=== PATIENT | female | born 1955 | race Caucasian/White ===

== ENCOUNTER → 2019-03-13 08:53 | Outpatient (BNVA) | payer BC, SELFPAY | PROVIDERS: Family Provider Nurse Practitioner; PCP Nurse Practitioner; Visit Provider Anesthesiology | DX: G89.29 Other chronic pain (principal); M54.5 Low back pain; Z71.89 Other specified counseling; Z79.891 Long term (current) use of opiate analgesic | CPT/HCPCS: 62323; 64483; 77003; 99212; J1040; J2001; J3490 ==

== ENCOUNTER → 2019-03-18 08:37 | Outpatient (BNVA) | payer BC, SELFPAY | PROVIDERS: Family Provider Nurse Practitioner; PCP Nurse Practitioner; Visit Provider Anesthesiology | DX: M48.062 Spinal stenosis, lumbar region with neurogenic claudication (principal); M43.16 Spondylolisthesis, lumbar region; M51.17 Intervertebral disc disorders with radiculopathy, lumbosacral region; M53.9 Dorsopathy, unspecified; M75.41 Impingement syndrome of right shoulder; F17.210 Nicotine dependence, cigarettes, uncomplicated; Z79.891 Long term (current) use of opiate analgesic | CPT/HCPCS: 99213; 99214 ==

== ENCOUNTER → 2019-04-22 09:57 | Outpatient (BNVA) | payer BC, SELFPAY | PROVIDERS: Family Provider Nurse Practitioner; PCP Nurse Practitioner; Referring Provider Licensed Practical Nurse; Visit Provider Psychiatry & Neurology Neurology | DX: M51.17 Intervertebral disc disorders with radiculopathy, lumbosacral region (principal); M54.5 Low back pain; M79.604 Pain in right leg; M79.605 Pain in left leg; F17.210 Nicotine dependence, cigarettes, uncomplicated | CPT/HCPCS: 95886; 95909 ==

== ENCOUNTER → 2019-04-29 12:27 | Outpatient (BNVA) | payer BC, SELFPAY | PROVIDERS: Family Provider Nurse Practitioner; PCP Nurse Practitioner; Visit Provider Internal Medicine Rheumatology | DX: M34.9 Systemic sclerosis, unspecified (principal); Z79.899 Other long term (current) drug therapy; M19.90 Unspecified osteoarthritis, unspecified site; I27.20 Pulmonary hypertension, unspecified; F17.210 Nicotine dependence, cigarettes, uncomplicated | CPT/HCPCS: 36415; 80076; 82306; 82565; 85651; 86140; 99214; G0463 ==

== ENCOUNTER → 2019-04-29 13:51 | Outpatient (BNVA) | payer BC, SELFPAY | PROVIDERS: Family Provider Nurse Practitioner; PCP Nurse Practitioner; Visit Provider Internal Medicine Rheumatology | DX: Z79.899 Other long term (current) drug therapy (principal); M19.90 Unspecified osteoarthritis, unspecified site; I27.20 Pulmonary hypertension, unspecified; M34.9 Systemic sclerosis, unspecified | CPT/HCPCS: 85025 ==

== ENCOUNTER → 2019-05-21 08:56 | Outpatient (BNVA) | payer BC, SELFPAY | PROVIDERS: Family Provider Nurse Practitioner; PCP Nurse Practitioner; Visit Provider Nurse Practitioner | DX: M48.062 Spinal stenosis, lumbar region with neurogenic claudication (principal); M51.17 Intervertebral disc disorders with radiculopathy, lumbosacral region; M43.16 Spondylolisthesis, lumbar region; F17.210 Nicotine dependence, cigarettes, uncomplicated; Z71.6 Tobacco abuse counseling; Z79.891 Long term (current) use of opiate analgesic | CPT/HCPCS: 99214 ==

== ENCOUNTER → 2019-05-26 10:40 | Outpatient (BNVA) | payer BC, SELFPAY | PROVIDERS: Family Provider Nurse Practitioner; PCP Nurse Practitioner; Visit Provider Internal Medicine Rheumatology | DX: M34.9 Systemic sclerosis, unspecified (principal); Z79.899 Other long term (current) drug therapy; I27.20 Pulmonary hypertension, unspecified; F17.210 Nicotine dependence, cigarettes, uncomplicated; M47.26 Other spondylosis with radiculopathy, lumbar region; I73.00 Raynaud's syndrome without gangrene; M19.90 Unspecified osteoarthritis, unspecified site | CPT/HCPCS: 99214 ==

== ENCOUNTER 2019-06-26 09:58 | Outpatient (CLI) | payer BC, SELFPAY ==
--- NOTE | 2019-06-26 10:15 | USCV_ITS ---
Jenna Muir Age: 64 Gender: F : 1955 Exam Date: 06/26/2019 10:21 Ordering Phys: Nakita Cabrales MD Technologist: Amari Calzada [place] [facility] [place]ication: PEDAL EDEMA BP: 130 / 75 HR: 82 Rhythm: Sinus Technical Quality: Fair MEASUREMENTS (Male / Female) Normal Values 2D ECHO LV Diastolic Diameter PLAX 4.3 cm 4.2 - 5.9 / 3.9 - 5.3 cm LV Systolic Diameter PLAX 2.6 cm IVS Diastolic Thickness 0.7 cm 0.6 - 1.0 / 0.6 - 0.9 cm IVS Systolic Thickness 1.3 cm LVPW Diastolic Thickness 1.0 cm 0.6 - 1.0 / 0.6 - 0.9 cm LVPW Systolic Thickness 1.4 cm LVOT Diameter 2.1 cm LV Ejection Fraction 2D Teich 70.5 % LV Ejection Fraction MOD 2C 55.7 % LV Ejection Fraction 2C AL 56.4 % LA Diameter 2.5 cm LA Width 2.8 cm LA Height 5.0 cm RA Width 3.1 cm RA Height 5.1 cm M-MODE LV Diastolic Diameter MM 4.2 cm 4.2 - 5.9 / 3.9 - 5.3 cm LV Systolic Diameter MM 2.7 cm LV Ejection Fraction MM Teich 66.6 % IVS Diastolic Thickness MM 1.3 cm 0.6 - 1.0 / 0.6 - 0.9 cm IVS Systolic Thickness MM 1.7 cm LVPW Diastolic Thickness MM 1.1 cm 0.6 - 1.0 / 0.6 - 0.9 cm LVPW Systolic Thickness MM 1.4 cm RV Diastolic Diameter MM 2.5 cm Aortic Annulus Diameter 3.3 cm LA Ao Ratio MM 0.8 MV E Point Septal Separation 0.7 cm DOPPLER AV Peak Velocity 132.0 cm/s LVOT Peak Velocity 94.0 cm/s AV Area Cont Eq vti 2.5 cm squared AV Area Cont Eq pk 2.4 cm squared MV Area PHT 5.0 cm squared Mitral E to A Ratio 0.8 MV E' Velocity 9.0 cm/s Mitral E to MV E' Ratio 9.8 Mitral E to LV E' Lateral Ratio 8.4 Mitral E to LV E' Septal Ratio 11.9 TR Peak Velocity 257.0 cm/s TR Peak Gradient 26.5 mmHg TV Peak E Velocity 67.0 cm/s Right Atrial Pressure 3.0 mmHg Pulmonary Artery Systolic Pressu 29.4 mmHg FINDINGS Left Ventricle Relatively poor quality study. The apical view is the best view for evaluation. The other views are poor. Normal left ventricular size and function. Ejection fraction probably 60%. No obvious wall motion disturbances. Grade 1 diastolic dysfunction. Right Ventricle Normal right ventricular size and systolic function. Normal right ventricular systolic pressure. Right Atrium The right atrium is normal in size. Left Atrium The left atrium is normal in size. Mitral Valve Structurally normal mitral valve without significant stenosis or prolapse. There is no mitral regurgitation. Aortic Valve Structurally normal aortic valve without significant sclerosis or stenosis. There is no aortic regurgitation. Tricuspid Valve Structurally normal tricuspid valve without significant stenosis or regurgitation. Pulmonary artery systolic pressure is normal. Pulmonic Valve Pulmonic valve not well visualized. Pericardium Normal pericardium without effusion. Aorta Normal ascending aorta dimension. CONCLUSIONS Relatively poor quality study. The apical view is the best view for evaluation. The other views are poor. Normal left ventricular size and function. Ejection fraction probably 60%. No obvious wall motion disturbances. Grade 1 diastolic dysfunction. From the previous study in August of last year, pulmonary hypertension was not noted on this study. Previously it was suggested to be 54 mmHg. Otherwise, no change Dr. Uli Mead MD (Electronically Signed) Final Date: 26 June 2019 15:28 S
== END 2019-06-26 09:59 | disposition home or self-care (01) ==
LOC: RAD 10:01
PROVIDERS: Family Provider Nurse Practitioner; PCP Nurse Practitioner; Visit Provider Internal Medicine Critical Care Medicine
DX: I27.20 Pulmonary hypertension, unspecified (principal)
CPT/HCPCS: 93306

== ENCOUNTER 2019-07-22 09:57 | Outpatient (CLI) | payer BC, SELFPAY ==
[2019-07-22 10:48] LABS: Basophils % 0.5 %; Eosinophils # 0.2 10^3/uL (0.0-0.8); Eosinophils % 3.6 %; Hematocrit 47.7 % (37.0-47.0); Hemoglobin 15.7 g/dL (11.5-15.3); Lymphocytes # 1.5 10^3/uL (0.8-4.8); Lymphocytes % 34.2 %; Mean Corpuscular HGB Conc 32.9 g/dL (30.0-36.0); Mean Corpuscular Hemoglobin 36.1 pg (28.0-34.0); Mean Corpuscular Volume 109.7 fL (81-99); Mean Platelet Volume 10.8 fL (7.4-10.4); Monocytes # 0.4 10^3/uL (0.2-0.9); Monocytes % 8.2 %; Neutrophils # 2.3 10^3/uL (1.8-7.7); Neutrophils % 53.3 %; Nucleated Red Blood Cells % 0 %; Platelet Count 167 10^3/cmm (130-400); Red Blood Count 4.35 10^6/uL (4.1-5.3); Red Cell Distribution Width 15.1 % (12.1-15.1); White Blood Count 4.4 10^3/uL (4.0-10.0)
[2019-07-22 12:40] LABS: Add Urine Microscopic? YES; Bilirubin Urine Neg (NEGATIVE); Blood Urine Neg (Negative); Glucose Urine UA Norm (Normal); Ketones Urine Negative (Negative); Leukocyte Esterase Urine Negative (Negative); Nitrate Urine Negative (Negative); Protein Urine Neg (Negative); Urine Appearance Hazy (CLEAR); Urine Color Yellow (Yellow); Urobilinogen Urine Norm (Negative); pH Urine 5 (5-7)
[2019-07-22 12:46] LABS: Bacteria Urine 1+; WBC Urine 0-4 /hpf (0-5)
[2019-07-22 12:47] LABS: Add Urine Culture? No
[2019-07-22 13:11] LABS: Vitamin B12 163 pg/mL (232-1245)
[2019-07-22 14:00] LABS: Folate Level 8.5 ng/mL (4.8-37.3)
--- NOTE | 2019-07-22 20:36 | ONC CON_ITS ---
Dr. Valencia New Patient Note Patient: Jenna Muir Unit #: [id number]: 1955 Dicatated By: Orlin Valencia M.D.Date of Visit: July 22, 2019 Onc MED New Patient/Consult Referring Physician: Dr. Levi Lebron M.D. History of Present Illness: Mrs. Jenna Muir, is a 64-year-old female with long-standing history of heavy smoking, smoke about pack and half a day and emphysema, pulmonary hypertension and connective tissue disorder including limited cutaneous systemic sclerosis , chronic back pain, found to have elevated hemoglobin/hematocrit during routine checkup on 04/29/2020 her CBC shows white blood count 5.7 hemoglobin 17.3 hematocrit 50 2. platelets 184,000 RBC 4.87 normal being 4.1- 5.3. And MCV 107.4. Patient had CT scan of chest done on 08/21/2018 which showed mild pulmonary artery enlargement, which can be associated with pulmonary artery hypertension. Mild lung hyperexpansion, suggestive of chronic emphysema, infrarenal abdominal aorta 3.3 cm aneurysm. Colonoscopy done on 12/17/2017 showed diverticulosis. Patient denies any headaches blurred vision double vision, patient denies any history of hematuria, jaundice, melena or hematochezia, patient denies any history of hemoptysis or hematemesis. Denies any shortness of breath or wheezing. Denies any history of sleep apnea. Past Medical History: Ms. Muir's medical history consists of abdominal aortic aneurysm, arthritis, degenerative disease of the spine, gastroesophageal reflux disease, hepatitis B, hyperlipidemia, and lumbar stenosis. Past Surgical History: Ms. Muir's surgical/procedural history consists of hysterectomy, knee arthroscopy, and rotator cuff repair. Medications: amLODIPine Besylate 1 Tablet (of 2.5 mg) Oral daily, Baclofen 1 Tablet (of 20 mg) Oral t.i.d. PRN, Cholecalciferol 3 Capsule (of 100 mcg ) Oral q 7 days, oxyCODONE HCl 1 Tablet (of 5 mg) Oral t.i.d., Pantoprazole Sodium 1 Tablet (of 40 mg) Tablet, enteric coated Oral daily Allergies: Azithromycin, Codeine Sulfate, and predniSONE. Social History: Ms. Muir is . Ms. Muir has never smoked. She has no history of drinking. Family History: There is no documented family history. Review Of Symptoms: Constitutional - Appetite is good and weight is stable. No fever, chills, hot flashes, or night sweats. ECOG score is, ENMT - No sinus congestion/drainage. No mouth sores. No sore throat or difficulty swallowing, Hematologic/Lymphatic - No abnormal bruising or bleeding, Respiratory - No shortness of breath. No cough. No pleuritic pain or hemoptysis, Cardiovascular - No angina pain. No palpitations, Gastrointestinal - No nausea or vomiting. No heartburn or acid reflux. No diarrhea or constipation. No blood in the stool or black stools, Genitourinary (F) - No dysuria or hematuria. No urinary frequency. No urgency or incontinence, Musculoskeletal - No joint or bone pain, Neurologic - No headache or dizziness. No numbness/paresthesias or other focal neurologic symptoms, Psychiatric - No anxiety or depression. No insomnia. Vital Signs: Performed on July 22, 2019 11:23: 9, 1.12 (LOW), 2.82 sq.m, 203.4 in, 94 % (LOW), 87 /min, 19 /min, 133/84 mm(hg), 97.9 F (LOW), and 66 lbs (HIGH). Performance Status: 0 - Fully active, able to carry on all predisease activities without restrictions. (ECOG) Physical Examination: ENMT - no mouth sores, no thrush, no jaundice, Hematologic/Lymphatic - no peripheral lymphadenopathy, Respiratory - Lungs are clear , heart S1-S2, Abdomen - soft, bowel sounds present no organomegaly noted, Extremities - no edema or rash. Lab/Imaging: Most recent lab results are not available for this patient. Impression: polycythemia, Etiology could be relative e.g. due to chronic smoking causing low plasma volume or hypoxia induced, or primary,e.g. Polycythemia vera or myeloproliferative disorder but less likely History of chronic smoking, still active Emphysema/pulmonary hypertension. Chronic back pain Connective tissue disorder. Plan: Discussed with patient regarding her labs from today shows white blood count 4.4 hemoglobin 15.7 hematocrit 47.7 normal being 37- 47 and platelets 167,000 with a normal differential Clinically, patient is doing well not symptomatic due to mild polycythemia. And her repeat labs done today shows improvement in her hemoglobin and hematocrit At this point we will consider basic workup which include pulse ox at rest and at modest exertion to rule out hypoxia as patient has history of emphysema. Also do urinalysis to rule out hematuria and CMP and erythropoietin level and also consider B12 folate level and reticulocyte count as her CBC shows macrocytosis. Patient was advised to quit smoking and was offered any assistance she may need. Patient will return to clinic in 2 weeks with CBC, and at that time we'll review above-mentioned workup and make further plans. Signed By: Orlin Valencia M.D. <<Signature on File>>
[2019-07-23 15:52] LABS: Erythropoietin 14.7 mIU/mL (2.6-18.5)
== END 2019-07-22 09:58 | disposition home or self-care (01) ==
PROVIDERS: PCP Nurse Practitioner; Referring Provider Internal Medicine Rheumatology; Visit Provider Internal Medicine Hematology & Oncology
DX: D75.1 Secondary polycythemia (principal); F17.210 Nicotine dependence, cigarettes, uncomplicated; J43.9 Emphysema, unspecified; I27.20 Pulmonary hypertension, unspecified; M34.9 Systemic sclerosis, unspecified
CPT/HCPCS: 81001; 82607; 82668; 82746; 85025; 85045; 99203

== ENCOUNTER 2019-08-05 10:40 | Outpatient (CLI) | payer BC, SELFPAY ==
[2019-08-05 12:03] LABS: Basophils % 0.6 %; Eosinophils # 0.1 10^3/uL (0.0-0.8); Hematocrit 46.8 % (37.0-47.0); Hemoglobin 15.5 g/dL (11.5-15.3); Lymphocytes # 1.5 10^3/uL (0.8-4.8); Lymphocytes % 32.6 %; Mean Corpuscular HGB Conc 33.1 g/dL (30.0-36.0); Mean Corpuscular Hemoglobin 36.1 pg (28.0-34.0); Mean Corpuscular Volume 109.1 fL (81-99); Mean Platelet Volume 11.4 fL (7.4-10.4); Monocytes # 0.3 10^3/uL (0.2-0.9); Monocytes % 5.8 %; Neutrophils # 2.7 10^3/uL (1.8-7.7); Neutrophils % 57.8 %; Nucleated Red Blood Cells % 0 %; Platelet Count 187 10^3/cmm (130-400); Red Blood Count 4.29 10^6/uL (4.1-5.3); Red Cell Distribution Width 15.6 % (12.1-15.1); White Blood Count 4.7 10^3/uL (4.0-10.0)
[2019-08-05 13:04] LABS: Alanine Aminotransferase 11 U/L (0-33); Albumin Level 3.9 g/dL (3.5-5.2); Alkaline Phosphatase 85 IU/L (35-105); Aspartate Amino Transferase 16 U/L (0-32); Blood Urea Nitrogen 9 mg/dL (8-23); Calcium 9.8 mg/dL (8.5-10.5); Carbon Dioxide 24 mmol/L (22-29); Chloride 101 mmol/L (98-107); Globulin 3.4 g/dL (1.3-4.6); Glomerular Filtration Rate 84.5 mL/min (90-130); Glucose 130 mg/dL (65-115); Osmolality Calculated 286 mOsm/kg (285-295); Sodium 139 mmol/L (136-145); Total Bilirubin 0.4 mg/dL (0.15-1.2); Total Protein 7.3 g/dL (6.6-8.7)
[2019-08-05] MEDS: cyanocobalamin 1,000 mcg/mL SDV 1000 MCG SUBCUT (13:25)
--- NOTE | 2019-08-05 16:16 | ONC FU_ITS ---
Dr. Valencia follow up note Patient: Jenna Muir Unit #: [id number]: 1955 Dicatated By: Orlin Valencia M.D.Date of Visit:Aug 05, 2019 Onc Med Follow-up/Prog Note History of Present Illness: Mrs. Jenna Muir, is a 64-year-old female with long-standing history of heavy smoking, smoke about pack and half a day and emphysema, pulmonary hypertension and connective tissue disorder including limited cutaneous systemic sclerosis , chronic back pain, found to have elevated hemoglobin/hematocrit during routine checkup on 04/29/2020 her CBC shows white blood count 5.7 hemoglobin 17.3 hematocrit 50 2. platelets 184,000 RBC 4.87 normal being 4.1- 5.3. And MCV 107.4.labs checked done 07/22/2019 showed B12 level 163 , Patient had CT scan of chest done on 08/21/2018 which showed mild pulmonary artery enlargement, which can be associated with pulmonary artery hypertension. Mild lung hyperexpansion, suggestive of chronic emphysema, infrarenal abdominal aorta 3.3 cm aneurysm. Colonoscopy done on 12/17/2017 showed diverticulosis. Patient denies any headaches blurred vision double vision, patient denies any history of hematuria, jaundice, melena or hematochezia, patient denies any history of hemoptysis or hematemesis. Denies any shortness of breath or wheezing. Denies any history of sleep apnea. Came for follow-up, denies any specific complaints, no headaches no blurred vision or double vision no nausea or vomiting no diarrhea constipation no peripheral numbness. Patient said she has cut done her smoking significantly, now smoke about half a pack a day. Medications: amLODIPine Besylate 1 Tablet (of 2.5 mg) Oral daily, Baclofen 1 Tablet (of 20 mg) Oral t.i.d. PRN, Cholecalciferol 3 Capsule (of 100 mcg ) Oral q 7 days, oxyCODONE HCl 1 Tablet (of 5 mg) Oral t.i.d., Pantoprazole Sodium 1 Tablet (of 40 mg) Tablet, enteric coated Oral daily Allergies: Azithromycin, Codeine Sulfate, and predniSONE. Review of Systems: Constitutional - Appetite is good and weight is stable. No fever, chills, hot flashes, or night sweats. Energy level is poor, ENMT - No sinus congestion/drainage. No mouth sores. No sore throat or difficulty swallowing, Hematologic/Lymphatic - No abnormal bruising or bleeding, Respiratory - Positive for shortness of breath with exertion. No cough. No pleuritic pain or hemoptysis, Cardiovascular - No angina pain. No palpitations, Gastrointestinal - No nausea or vomiting. No heartburn or acid reflux. No diarrhea or constipation. No blood in the stool or black stools, Genitourinary (F) - No dysuria or hematuria. No urinary frequency. No urgency or incontinence, Musculoskeletal - Positive for joint pain, Neurologic - No headache or dizziness. No numbness/paresthesias or other focal neurologic symptoms, Psychiatric - No anxiety or depression. No insomnia. Vital Signs: Performed on Aug 05, 2019 12:58 Height - 203.40 in Weight - 205.6 lbs (HIGH) BSA - 4.58 sq.m BMI - 3.49 (LOW) Temperature - 98.5 F Pulse - 72 /min Respiration - 22 /min BP - 118/71 mm(hg) O2 Sat - 96 % Pain - 10 Performance Status: 0 - Fully active, able to carry on all predisease activities without restrictions. (ECOG) Physical Examination: ENMT - no mouth sores, no thrush, poor oral hygiene, no jaundice, Respiratory - Lungs are clear, Cardiovascular - Regular rate and rhythm of heart, Abdomen - soft, bowel sounds present, Extremities - no visible edema. Lab/Imaging: Test performed on July 22, 2019 11:20 Vitamin B12 163 pg/mL Erythropoietin 14.7 mIU/mL Ua Micro: WBC 0-4 /hpf Ua Micro: RBC NONE /hpf Ua Micro: Squam Epith Cells 10-15 CULTURE NOT INDICATED DUE TO >10 EPITHELIAL CELLS PRESENT ON MICROSCOPIC EXAM. POSSIBLE SPECIMEN CONTAMINATION. Ua Micro: Bacteria 1+ Test performed on July 22, 2019 10:25 WBC 4.4 10 3/uL RBC 4.35 10 6/uL HGB 15.7 g/dL HCT 47.7 % MCV 109.7 fL MCH 36.1 pg MCHC 32.9 g/dL RDW 15.1 % Platelet Count 167 10 3/cmm MPV 10.8 fL Neutrophils 2.3 10 3/uL Lymphocytes 1.5 10 3/uL Monocytes 0.4 10 3/uL Eosinophils 0.2 10 3/uL Basophils 0.0 10 3/uL Neutrophil % 53.3 % Lymphocyte % 34.2 % Monocyte % 8.2 % Eosinophil % 3.6 % Basophils % 0.5 % Impression: polycythemia, Etiology could be relative e.g. due to chronic smoking causing low plasma volume or hypoxia induced, or primary,e.g. Polycythemia vera or myeloproliferative disorder but less likely B12 deficiency diagnosed on 07/22/2019 History of chronic smoking, still active Emphysema/pulmonary hypertension. Chronic back pain Connective tissue disorder. Plan: Discussed with patient regarding her labs white blood count 4.7 hemoglobin 15.5 crit 46.8 MCV 109.1 platelets 167,000, B12 level 163, erythropoietin 14.7 urinalysis shows no evidence of hematuria comprehensive metabolic panel within normal range Clinically, patient is doing well, her follow-up lab shows her hemoglobin/hematocrit is improving as patient is cutting down on smoking. And also showed evidence of B12 deficiency causing macrocytosis. Basic polycythemia workup showed no abnormality but hematocrit is improving with cutting down on smoking. Patient was encouraged to quit smoking she was offered any assistance she may need. Patient was also advised to take 1 aspirin a day and maintain good hydration, clinically it appears patient has secondary polycythemia due to chronic heavy smoking, will continue to monitor her CBC if it shows worsening then may consider further workup including bone marrow evaluation and may consider phlebotomy. Newly diagnosed B12 deficiency, could be due to malabsorption or medication induced B12 malabsorption. We will start her on B12 supplement thousand micrograms IM weekly ???4 loading dose then every month. Patient will receive her first dose today then every week and we'll see her back in one month with CBC and B12 level. Signed By: Orlin Valencia M.D. <<Signature on File>>
[2019-08-06 17:31] LABS: Erythropoietin 19.5 mIU/mL (2.6-18.5)
== END 2019-08-05 10:41 | disposition home or self-care (01) ==
LOC: ONCMED 10:47
PROVIDERS: PCP Nurse Practitioner; Visit Provider Internal Medicine Hematology & Oncology
DX: D75.1 Secondary polycythemia (principal); E53.8 Deficiency of other specified B group vitamins; I71.4 Abdominal aortic aneurysm, without rupture; M19.90 Unspecified osteoarthritis, unspecified site; M47.9 Spondylosis, unspecified; K21.9 Gastro-esophageal reflux disease without esophagitis; E78.5 Hyperlipidemia, unspecified; M48.061 Spinal stenosis, lumbar region without neurogenic claudication; Z86.19 Personal history of other infectious and parasitic diseases
CPT/HCPCS: 36415; 80053; 82668; 85025; 96372; 99214; J3420

== ENCOUNTER 2019-08-11 08:54 | Outpatient (CLI) | payer BC, SELFPAY ==
--- NOTE | 2019-08-11 09:15 | USCV_ITS ---
Jenna Muir Age: 64 Gender: F : 1955 Exam Date: 08/11/2019 09:46 Ordering Phys: Markos Anderson MD ([email or web address]) Technologist: FREDRICK HOPKINS Exam Location: [facility] – [place] Indication: AORTIC ANEURYSM HISTORY: Diameter (cm) AP x Transverse x Length Velocity (cm/s) Waveform Prox Aorta: 2.76 x 2.50 x 56.20 Mid Aorta: 3.39 x 3.52 x 37.60 Distal Aorta: 2.31 x 2.54 x 42.40 Right Iliac Prox: 0.55 x 1.10 x 170.20 Left Iliac Prox: 0.39 x 1.05 x 178.50 Stent Prox Landing x x Aneurysmal Sac Max x x Lt Lat Sac Dim Rt Lat Sac Dim Stent Dist Landing x x Right Iliac Stent x x Left Iliac Stent x x Right Renal Art Left Renal Art FINDINGS: Mild diffuse plaques in the abdominal aorta Diffuse fusiform dilatation of the mandible aorta CONCLUSIONS 1. Small fusiform aneurysm of the mid abdominal aorta, measuring 3.39 x 3.52 cm 2. Mild diffuse plaques in the abdominal aorta 3. Normal dimensions of the proximal common iliac arteries bilaterally. No similar previous studies are available for comparison Dr Markos Anderson MD [facility] (Electronically Signed) Final Date: 11 August 2019 18:38 S
== END 2019-08-11 08:55 | disposition home or self-care (01) ==
LOC: RAD 08:56
PROVIDERS: PCP Nurse Practitioner; Visit Provider Internal Medicine Cardiovascular Disease
DX: I71.4 Abdominal aortic aneurysm, without rupture (principal)
CPT/HCPCS: 93978

== ENCOUNTER → 2019-08-21 10:32 | Outpatient (BNVA) | payer BC, SELFPAY | PROVIDERS: PCP Nurse Practitioner; Visit Provider Internal Medicine Rheumatology | DX: Z79.899 Other long term (current) drug therapy (principal); M19.90 Unspecified osteoarthritis, unspecified site | CPT/HCPCS: 36415; 80076; 82565; 85025; 85651; 86140 ==

== ENCOUNTER 2019-08-26 06:52 | Outpatient (RCR) | payer BC, SELFPAY ==
[2019-08-12] MEDS: cyanocobalamin 1,000 mcg/mL SDV 1000 MCG SUBCUT (13:28)
[2019-08-19] MEDS: cyanocobalamin 1,000 mcg/mL SDV 1000 MCG SUBCUT (13:20)
[2019-08-26] MEDS: cyanocobalamin 1,000 mcg/mL SDV 1000 MCG SUBCUT (13:40)
== END 2019-09-02 23:59 | disposition home or self-care (01) ==
LOC: ONCMED 06:52
PROVIDERS: PCP Nurse Practitioner; Visit Provider Internal Medicine Hematology & Oncology
DX: D45 Polycythemia vera (principal); D51.9 Vitamin B12 deficiency anemia, unspecified; I71.4 Abdominal aortic aneurysm, without rupture; M19.90 Unspecified osteoarthritis, unspecified site; M47.9 Spondylosis, unspecified; K21.9 Gastro-esophageal reflux disease without esophagitis; E78.5 Hyperlipidemia, unspecified; M48.061 Spinal stenosis, lumbar region without neurogenic claudication; Z86.19 Personal history of other infectious and parasitic diseases; Z79.899 Other long term (current) drug therapy
CPT/HCPCS: 96372; J3420

== ENCOUNTER 2019-08-27 08:25 | Outpatient (CLI) | payer BC, SELFPAY ==
--- NOTE | 2019-08-27 10:33 | PFTS_ITS ---
Date of Study:08/27/19 Date of Dictation: MECHANICS: Forced vital capacity (FVC) is reduced. Forced expiratory volume in one second (FEV1) is reduced. FEV1/FVC is normal. FLOW VOLUME LOOP: Narrow with mild scooping. LUNG VOLUMES: Total lung capacity (TLC) is normal. Residual volume (RV) is increased. DIFFUSING CAPACITY FOR CARBON MONOXIDE: Moderately reduced. INTERPRETATION: The pulmonary function tests are consistent with mild restriction. The flow- volume loop is suggestive of small airways disease. The lung volumes are consistent with air trapping. Gas exchange (DLCO) is moderately reduced. MTDD
== END 2019-08-27 08:26 | disposition home or self-care (01) ==
PROVIDERS: PCP Nurse Practitioner; Visit Provider Internal Medicine Critical Care Medicine
DX: I27.20 Pulmonary hypertension, unspecified (principal)
CPT/HCPCS: 94010; 94726; 94729

== ENCOUNTER → 2019-09-02 10:42 | Outpatient (BNVA) | payer BC, SELFPAY | PROVIDERS: PCP Nurse Practitioner; Visit Provider Internal Medicine Rheumatology | DX: M34.9 Systemic sclerosis, unspecified (principal); D75.1 Secondary polycythemia; I27.20 Pulmonary hypertension, unspecified; I73.00 Raynaud's syndrome without gangrene; K21.9 Gastro-esophageal reflux disease without esophagitis; M06.9 Rheumatoid arthritis, unspecified; M47.26 Other spondylosis with radiculopathy, lumbar region; F17.210 Nicotine dependence, cigarettes, uncomplicated; Z79.899 Other long term (current) drug therapy | CPT/HCPCS: 99214 ==

== ENCOUNTER 2019-09-09 20:00 | Outpatient (CLI) | payer BC, SELFPAY | END 2019-09-09 20:01 | disposition home or self-care (01) | PROVIDERS: PCP Nurse Practitioner; Visit Provider Internal Medicine Critical Care Medicine | DX: G47.10 Hypersomnia, unspecified (principal); R06.83 Snoring | CPT/HCPCS: 95810 ==

== ENCOUNTER 2019-09-15 07:04 | Outpatient (RCR) | payer BC, SELFPAY ==
[2019-09-15 13:57] LABS: Basophils % 0.6 %; Eosinophils # 0.2 10^3/uL (0.0-0.8); Eosinophils % 3.3 %; Hematocrit 49.9 % (37.0-47.0); Hemoglobin 16.3 g/dL (11.5-15.3); Lymphocytes # 1.9 10^3/uL (0.8-4.8); Lymphocytes % 29.7 %; Mean Corpuscular HGB Conc 32.7 g/dL (30.0-36.0); Mean Corpuscular Hemoglobin 35.8 pg (28.0-34.0); Mean Corpuscular Volume 109.7 fL (81-99); Mean Platelet Volume 11.5 fL (7.4-10.4); Monocytes # 0.6 10^3/uL (0.2-0.9); Monocytes % 9.5 %; Neutrophils # 3.61 10^3/uL (1.8-7.7); Neutrophils % 56.6 %; Nucleated Red Blood Cells % 0 %; Platelet Count 178 10^3/cmm (130-400); Red Blood Count 4.55 10^6/uL (4.1-5.3); Red Cell Distribution Width 13.9 % (12.1-15.1); White Blood Count 6.4 10^3/uL (4.0-10.0)
[2019-09-15 14:45] LABS: Vitamin B12 348 pg/mL (232-1245)
== END 2019-10-03 23:59 | disposition home or self-care (01) ==
LOC: ONCMED 07:04
PROVIDERS: PCP Nurse Practitioner; Visit Provider Internal Medicine Hematology & Oncology
DX: D45 Polycythemia vera (principal); D51.9 Vitamin B12 deficiency anemia, unspecified; I71.4 Abdominal aortic aneurysm, without rupture; K21.9 Gastro-esophageal reflux disease without esophagitis; E78.5 Hyperlipidemia, unspecified
CPT/HCPCS: 36415; 82607; 85025

== ENCOUNTER → 2019-10-09 09:17 | Outpatient (BNVA) | payer BC, SELFPAY | PROVIDERS: PCP Nurse Practitioner; Visit Provider Internal Medicine Rheumatology | DX: Z79.899 Other long term (current) drug therapy (principal) | CPT/HCPCS: 36415; 80076; 82565; 85025; 85651; 86140 ==

== ENCOUNTER → 2019-10-24 09:20 | Outpatient (BNVA) | payer BC, SELFPAY | PROVIDERS: PCP Nurse Practitioner; Visit Provider Anesthesiology | DX: M48.062 Spinal stenosis, lumbar region with neurogenic claudication (principal); M43.16 Spondylolisthesis, lumbar region; M53.9 Dorsopathy, unspecified; M51.17 Intervertebral disc disorders with radiculopathy, lumbosacral region; F17.210 Nicotine dependence, cigarettes, uncomplicated; Z79.891 Long term (current) use of opiate analgesic | CPT/HCPCS: 99213; 99214 ==

== ENCOUNTER 2019-11-28 23:27 | Inpatient (IN) | payer BC, SELFPAY ==
[2019-11-28 23:43] VITALS: BP 151/83; PULSE 105; RESP 18; TEMP 37.6; O2SAT 97; BMI 28.7
[2019-11-29] VITALS (24 sets, daily range): BP systolic 104–166; BP diastolic 67–99; PULSE 69–108; RESP 16–25; TEMP 36.3–38.8; O2SAT 90–100; BMI 36.7
--- NOTE | 2019-11-29 00:14 | PM.HP ---
Providers/Chief Complaint Primary Care Provider: Tasha Phillips APN Chief Complaint: ABD PAIN History of Present Illness Jennastephy Muir is a 64 year old female who has history of connective tissue disorder/scleroderma, restrictive lung disease, polycythemia, B12 deficiency, emphysema, pulmonary hypertension, chronic back pain came in today with 1 day history abdominal pain. Patient went to [facility] for evaluation of abdominal pain, she stating that her symptoms started 1 day ago with abdominal cramps which gradually got worse, she has been having subjective fevers, she experienced 3 episodes of emesis, abdominal pain is located in right upper quadrant area, she has not been able to eat anything in the last 24 hours. She is denying dysuria, diarrhea, endorsing constipation. She has not been exposed to any COVID patients. Diagnostics at the other facility revealed tachycardia, tachypnea, normal white count, she has been given normal saline, analgesics, liver ultrasound revealed cholelithiasis with cholecystitis, Dr. Brantley accepted the patient and asked hospital service to admit. On arrival patient was found to be in sepsis with tachycardia, tachypnea, fever, I have initiated Zosyn antibiotics, her pain is 10/10 right upper quadrant area, Dilaudid for analgesia, COVID antigen negative Review of Systems Const: Reports: fever(s), chills, body aches, fatigue and malaise Eyes: Denies: change in vision ENMT: Denies: throat pain Card: Denies: chest pain Resp: Reports: dyspnea GI: Reports: abdominal pain, nausea, vomiting and constipation : Denies: flank pain Musc: Denies: neck pain Skin/Breast: Denies: rash Neuro: Denies: headache(s) Psych: Denies: anxiety Endo: Denies: polyuria Raghu/Lymph: Denies: easy bruising All/Imm: Denies: urticaria Medications/Allergies Home Medications Medication Instructions Recorded Confirmed Last Taken Type albuterol sulfate 90 mcg/actuation 2 puff INHALATION Q6H PRN 03/12/19 11/20/19 Unknown History aerosol inhaler diclofenac sodium 1 % topical gel 2 gm TOPICAL .PRN gm 03/12/19 11/20/19 Unknown History pantoprazole 40 mg tablet,delayed 40 mg PO DAILY #30 tab 05/26/19 11/20/19 Unknown Rx release amlodipine 2.5 mg tablet 2.5 mg PO DAILY #90 tab 07/07/19 11/20/19 Unknown Rx cholecalciferol (vitamin D3) 25 25 mcg PO .3 day cap 07/11/19 11/20/19 Unknown History mcg (1,000 unit) capsule mycophenolate mofetil 500 mg tablet 500 mg PO BID #60 tab 09/02/19 11/20/19 Unknown Rx macitentan 10 mg tablet 10 mg PO DAILY #30 tab 09/17/19 11/20/19 Unknown Rx sildenafil (pulm.hypertension) 20 20 mg PO TID #90 tab 09/17/19 11/20/19 Unknown Rx mg tablet baclofen 20 mg tablet 20 mg PO TID PRN #90 tab 10/24/19 11/20/19 Unknown Rx oxycodone 5 mg tablet 5 mg PO TID PRN 30 Days #90 tab 10/24/19 11/20/19 Unknown Rx oxycodone 5 mg tablet 5 mg PO TID PRN 30 Days #90 tab 10/24/19 11/20/19 Unknown Rx ondansetron 4 mg disintegrating 4 mg PO Q6H PRN #28 tab 11/28/19 Unknown Rx tablet Allergies Allergy/AdvReac Type Severity Reaction Status Date / Time azithromycin Allergy Severe ALGY-Difficulty Verified 11/28/19 23:48 [From Zithromax Z-Merlin] Breathing prednisone Allergy Unknown Verified 11/28/19 23:48 codeine AdvReac Severe ADR-Headach Verified 11/28/19 23:48 e PFSH Acute PFSH: Medical History Abdominal aortic aneurysm Acute bilateral low back pain Arthrosis of right shoulder region B12 deficiency Cataract Chronic narcotic use Connective tissue disorder Encounter for long-term opiate analgesic use GERD (gastroesophageal reflux disease) Hepatitis B surface antigen positive High risk medication use Hyperlipidemia Hypertension Immunization counseling Impingement syndrome of right shoulder Inflammatory arthritis Intervertebral disc disorders with radiculopathy, lumbosacral region Labral tear of shoulder, degenerative Lumbar stenosis with neurogenic claudication Multilevel degenerative disc disease Other instability, unspecified joint Polycythemia Pulmonary hypertension Restrictive lung disease Spondylolisthesis, lumbar region Systemic sclerosis Surgical History H/O: hysterectomy History of arthroplasty of knee S/P rotator cuff repair Family History Mother Bleeding disorder Aneurysm Father Cancer Denies family history of Rheumatoid arthritis Lupus Social History Smoking and tobacco status: current every day smoker cigarettes Packs smoked per day: 0.5 Years cigarettes smoked: 45 [ Other cigarette details: Hx of 1.5 PPD ] Quit status (tobacco): considering quitting Alcohol intake: never Lives independently: Yes Household members: children Current occupational status: disabled History of recent travel: No Current gender identity: Female Vitals/I&O/Wt Last Vital Signs Temp 99.7 F H 11/28/19 23:43 Pulse 105 H 11/28/19 23:43 Resp 18 11/28/19 23:43 BP 151/83 11/28/19 23:43 Pulse Ox 97 11/28/19 23:43 Weight last 48 hrs Weight 80.739 kg Physical Exam Narrative: EXAM NARRATIVE: female who is currently in distress because of right upper quadrant area pain She is septic with fever, tachypneic and tachycardic Right upper quadrant area tenderness on superficial palpation, localized tenderness, positive Castellano's sign, Bowel sounds are hyperactive S1, S2 sinus tachycardia Clinically she looks dehydrated, facial flushing, No acute respiratory distress No lower extremity edema gangrene ulcer EOMI, PERRLA GCS 15 Awake alert oriented x3 Appears to be in distress because of right upper quadrant pain A&P Assessment and plan (1) Cholelithiasis: Status: Acute (2) Acute cholecystitis: Status: Acute (3) Sepsis: Status: Acute (4) Abdominal aortic aneurysm: Status: Acute Qualifiers: Presence of rupture: without rupture Qualified Code(s): I71.4 - Abdominal aortic aneurysm, without rupture (5) Encounter for long-term opiate analgesic use: Status: Chronic Additional A&P Information Acute cholecystitis with cholelithiasis Sepsis with fever tachycardia, tachypnea, We will get HIDA scan in the morning Liver ultrasound revealed hepatic steatosis with gallbladder wall inflammation with gallstones Zosyn antibiotic for gram-negative anaerobic coverage, creatinine is normal Dr. Brantley has been consulted N.p.o., D5 half-normal saline at maintenance rate Dilaudid for analgesia Opioid-induced constipation We will use senna, MiraLAX and glycerin suppositories Abdominal aortic aneurysm: 3.5 x 3.3 cm no active decompensation, following up with Dr. 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 Valencia Full code DVT prophylaxis SCDs I would avoid anticoagulation in case she would require any surgical intervention for worsening of her systemic inflammatory response to cholecystitis N.p.o. Attestations Medical Necessity Statement*: Anticipating stay in the hospital course more than 2 midnights currently need IV antibiotics and sepsis management for cholecystitis, needs general surgery evaluation in the morning Time Spent in Patient Care: (>than 50% of time spent in counselling and/or direct pt care on unit). 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
[2019-11-29 01:08] LABS: SARS Covid-2 Antigen Negative (Negative)
[2019-11-29] MEDS: HYDROmorphone 1 mg/mL INJ 1 mL 2 MG IVP (02:39)
[2019-11-29] MEDS: dextrose 5%-sod chloride 0.45% 1,000 ML 75 ML IV (02:39)
[2019-11-29] MEDS: piperacillin-tazobactam 3.375 GM in sodium chloride 0.9% (plus) 50 ML IV ×3 (03:09→18:22)
[2019-11-29] MEDS: acetaminophen 500 mg Tablet PO (03:10)
--- NOTE | 2019-11-29 03:41 | W.ED.GENADLT ---
HPI - General Adult General: Chief complaint: General Medical Stated complaint: ABD PAIN Time Seen by Provider: 11/28/19 23:30 History of Present Illness: HPI narrative: 64-year-old lady presents as a direct admit to the floor. She was transferred for cholecystitis. Her only symptom COVID-19 currently is a cough she states that is less than 24 hours old. It is nonproductive. She does not complain of significant short of breath or change in her respiratory status. Onset (ago): day(s) Location: abdomen and right Radiation: non-radiation Severity scale (1-10): 5 Quality: aching Pain Consistency: constant Associated symptoms: Reports nausea; Deny chest pain, confusion, dyspnea, headache(s), rash or palpitations Review of Systems Const: Reports: chills; Denies: fever(s) ENMT: Reports: bleeding gums; Denies: swelling of lips/tongue, change in hearing or sinus pain Card: Denies: chest pain, palpitations, irregular heart rhythm or edema Resp: Reports: non-productive cough; Denies: dyspnea, productive cough or wheezing GI: Reports: nausea : Denies: dysuria or hematuria Musc: Denies: neck pain or joint warmth Skin/Breast: Denies: rash, pruritus or erythema Neuro: Denies: headache(s), dizziness, vertigo, confusion or seizure-like activity Psych: Denies: anxiety, visual hallucinations or suicidal ideation PFS ED PFSH: Medical History Abdominal aortic aneurysm Acute bilateral low back pain Arthrosis of right shoulder region B12 deficiency Cataract Chronic narcotic use Connective tissue disorder Encounter for long-term opiate analgesic use GERD (gastroesophageal reflux disease) Hepatitis B surface antigen positive High risk medication use Hyperlipidemia Hypertension Immunization counseling Impingement syndrome of right shoulder Inflammatory arthritis Intervertebral disc disorders with radiculopathy, lumbosacral region Labral tear of shoulder, degenerative Lumbar stenosis with neurogenic claudication Multilevel degenerative disc disease Other instability, unspecified joint Polycythemia Pulmonary hypertension Restrictive lung disease Spondylolisthesis, lumbar region Systemic sclerosis Surgical History H/O: hysterectomy History of arthroplasty of knee S/P rotator cuff repair Family History Mother Bleeding disorder Aneurysm Father Cancer Denies family history of Rheumatoid arthritis Lupus Social History Smoking and tobacco status: current every day smoker cigarettes Packs smoked per day: 0.5 Years cigarettes smoked: 45 [ Other cigarette details: Hx of 1.5 PPD ] Quit status (tobacco): considering quitting Alcohol intake: never Lives independently: Yes Household members: children Current occupational status: disabled History of recent travel: No Current gender identity: Female Physical Exam Const: GENERAL APPEARANCE: well developed ORIENTATION/CONSCIOUSNESS: Yes oriented to person, Yes oriented to place and Yes oriented to time HENMT: COMMON NORMALS: normocephalic, external ears normal and Normal external nose present HEAD & SCALP: normocephalic FACE & SINUS: normal facial exam NOSE: Normal external nose present and No nasal discharge present EXTERNAL EAR: Yes external ears normal Eye: COMMON NORMALS: Equal, round and reactive pupils present, EOMs intact bilaterally and conjunctivae normal EYELID: eyelids normal CONJUNCTIVA: Yes conjunctivae normal PUPIL: Yes Equal, round and reactive pupils present Neck/C-Spine: GENERAL: No tracheal deviation Chest: COMMONS NORMALS: normal inspection of the chest CHEST: No tenderness Resp: COMMON NORMALS: clear to auscultation bilaterally EFFORT & INSPECTION: No tachypneic, No respiratory distress, No retractions, No uses accessory muscles and No tracheal deviation AUSCULTATION: clear to auscultation bilaterally, no rhonchi, no wheezes and lung sounds not diminished Cardio: COMMON NORMALS: regular rate and regular rhythm RATE: regular rate RHYTHM: regular rhythm HEART SOUNDS: no murmurs PERIPHERAL PULSES: radial pulses present GI: INSPECTION: No abdominal distension AUSCULTATION: No Hyperactive bowel sounds present and No Hypoactive bowel sounds present PALPATION: Yes Tenderness to palpation present (GI) Details: RUQ, No Guarding due to palpation present (GI) and No Rigid due to palpation PERCUSSION: no dullness to percussion and no tympanic to percussion Neuro: SENSORIUM/ORIENTATION: Yes oriented to person, Yes oriented to place and Yes oriented to time Psych: COMMON NORMALS: mental status grossly normal Skin: COMMON NORMALS: no rashes or lesions noted GENERAL SKIN EXAM: no rashes or lesions noted Course Vital Signs: Vital signs: Vital Signs Temperature 101.9 F H 11/29/19 02:00 Pulse Rate 103 H 11/29/19 02:00 Respiratory Rate 18 11/29/19 02:39 Blood Pressure 151/88 11/29/19 02:00 Pulse Oximetry 90 11/29/19 02:00 Discharge Plan Discharge Patient Disposition: Admitted As Inpatient Admit Provider: Silvia Foss Clinical Impression: Acute cholecystitis Condition: Stable Interventions: ED Discharge Assessment Last Done: 11/29/19 01:45 ED Charges Last Done: 11/29/19 01:45 Discharge Date/Time: 11/29/19 02:00 Coding Level of Care Code ED [employer] Consultant for Chg Fwd Exam Comprehensive
[2019-11-29 05:28] LABS: Basophils % 0.2 %; Eosinophils % 0.1 %; Hematocrit 47.4 % (37.0-47.0); Hemoglobin 15.3 g/dL (11.5-15.3); Lymphocytes # 1.6 10^3/uL (0.8-4.8); Lymphocytes % 13.9 %; Mean Corpuscular HGB Conc 32.3 g/dL (30.0-36.0); Mean Corpuscular Hemoglobin 33.7 pg (28.0-34.0); Mean Corpuscular Volume 104.4 fL (81-99); Mean Platelet Volume 11.6 fL (7.4-10.4); Monocytes # 0.8 10^3/uL (0.2-0.9); Monocytes % 7.1 %; Neutrophils # 8.77 10^3/uL (1.8-7.7); Neutrophils % 78.3 %; Nucleated Red Blood Cells % 0 %; Platelet Count 191 10^3/cmm (130-400); Red Blood Count 4.54 10^6/uL (4.1-5.3); Red Cell Distribution Width 14.4 % (12.1-15.1); White Blood Count 11.2 10^3/uL (4.0-10.0)
[2019-11-29 05:47] LABS: INR 0.99 (0.8-1.2); Partial Thromboplastin Time 27.9 SECONDS (23.9-36.7)
[2019-11-29 05:48] LABS: Fibrinogen 640 mg/dL (174-498)
[2019-11-29 05:54] LABS: Lactate (Lactic Acid level) 1.7 mmol/L (0.5-2.2)
[2019-11-29 06:49] LABS: Platelet Count 191 10^3/cmm (130-400)
[2019-11-29 07:15] LABS: Alanine Aminotransferase 11 U/L (0-33); Albumin Level 3.7 g/dL (3.5-5.2); Alkaline Phosphatase 88 IU/L (35-105); Blood Urea Nitrogen 12 mg/dL (8-23); Calcium 8.9 mg/dL (8.5-10.5); Carbon Dioxide 22 mmol/L (22-29); Chloride 101 mmol/L (98-107); Globulin 2.4 g/dL (1.3-4.6); Glomerular Filtration Rate 84.5 mL/min (90-130); Glucose 98 mg/dL (65-115); Osmolality Calculated 284 mOsm/kg (285-295); Sodium 137 mmol/L (136-145); Total Bilirubin 0.8 mg/dL (0.15-1.2); Total Protein 6.1 g/dL (6.6-8.7)
[2019-11-29 07:42] LABS: Anion Gap 18.3 (5-19); Aspartate Amino Transferase 22 U/L (0-32); Potassium 4.3 mmol/L (3.5-5.1)
--- NOTE | 2019-11-29 08:10 | PM.CONSULT ---
Providers/Reason For Consult Consulting Physican/Specialty*: General Surgery Mohamud Brantley MD Reason for Consult*: Cholelithiasis, right upper quadrant pain with possible cholecystitis. Attending Physician: Jules Lennon Primary Care Provider: Tasha Phillips APN History of Present Illness History of Present Illness Jennastephy Muir is a 64 year old female who says that she developed some abdominal pain with nausea and vomiting 4 to 5 days ago. She says she has not really been able to eat anything over the past 4 to 5 days without getting nauseated. She has not had any evidence of hematemesis. She says she has not had a bowel movement for 5 days but continues to pass small amounts of flatus. She denied any fevers or chills at home but apparently developed a fever this morning. She denies any symptoms prior to 5 days ago. She has not had any food intolerances, postprandial symptoms, etc. in short, I cannot elicit an ongoing history of biliary colic. She has been known to have cholelithiasis by imaging for several years. The patient was initially seen in the emergency room in [place], [place] yesterday and was transferred to [place] for further management. They reportedly did an ultrasound which showed some gallbladder wall thickening and some cholelithiasis, but the patient's white blood cell count was normal at that time, as were her liver function studies. Review of Systems General: Reports: 10 or more systems reviewed and unremarkable except in HPI and below Const: Denies: fever(s) (Until this morning) GI: Reports: abdominal pain, nausea, vomiting and change in bowel habits (Constipation) Musc: Reports: back pain Meds/Allergies Home Medications and Allergies Home Medications Medication Instructions Recorded Confirmed Last Taken Type albuterol sulfate 90 mcg/actuation 2 puff INHALATION Q6H PRN 03/12/19 11/29/19 Unknown History aerosol inhaler diclofenac sodium 1 % topical gel 2 gm TOPICAL .PRN gm 03/12/19 11/29/19 Unknown History pantoprazole 40 mg tablet,delayed 40 mg PO DAILY #30 tab 05/26/19 11/29/19 Unknown Rx release amlodipine 2.5 mg tablet 2.5 mg PO DAILY #90 tab 07/07/19 11/29/19 Unknown Rx cholecalciferol (vitamin D3) 25 25 mcg PO .3 day cap 07/11/19 11/29/19 Unknown History mcg (1,000 unit) capsule mycophenolate mofetil 500 mg tablet 500 mg PO BID #60 tab 09/02/19 11/20/19 Unknown Rx macitentan 10 mg tablet 10 mg PO DAILY #30 tab 09/17/19 11/29/19 Unknown Rx sildenafil (pulm.hypertension) 20 20 mg PO TID #90 tab 09/17/19 11/20/19 Unknown Rx mg tablet baclofen 20 mg tablet 20 mg PO TID PRN #90 tab 10/24/19 11/29/19 Unknown Rx oxycodone 5 mg tablet 5 mg PO TID PRN 30 Days #90 tab 10/24/19 11/29/19 Unknown Rx oxycodone 5 mg tablet 5 mg PO TID PRN 30 Days #90 tab 10/24/19 11/29/19 Unknown Rx ondansetron 4 mg disintegrating 4 mg PO Q6H PRN #28 tab 11/28/19 Unknown Rx tablet Allergies Allergy/AdvReac Type Severity Reaction Status Date / Time azithromycin Allergy Severe ALGY-Difficulty Verified 11/28/19 23:48 [From Zithromax Z-Merlin] Breathing prednisone Allergy Unknown Verified 11/28/19 23:48 codeine AdvReac Severe ADR-Headach Verified 11/28/19 23:48 e Current Medications Current Medications Generic Name Dose Route Start Last Admin Trade Name Freq PRN Reason Stop Dose Admin Acetaminophen 500 mg 11/29/19 02:03 11/29/19 03:10 Tylenol PO 500 mg Q4H PRN Administration fever Hydromorphone HCl 2 mg 11/29/19 02:03 11/29/19 07:05 Dilaudid Inj IVP Not Given Q4H GERONIMO Dextrose/Sodium Chloride 1,000 mls @ 75 mls/hr 11/29/19 02:03 11/29/19 02:39 Dextrose 5%-Sod Chloride 0.45% IV 75 mls/hr .[id number] GERONIMO Administration Piperacillin Sod/Tazobactam 50 mls @ 12.5 mls/hr 11/29/19 02:30 11/29/19 03:09 Sod 3.375 gm/ Sodium Chloride IV 12.5 mls/hr Q8H GERONIMO Administration Protocol PFSH Acute PFSH: Medical History (Updated 11/29/19 @ 09:15 by Mohamud Brantley MD) Abdominal aortic aneurysm Acute bilateral low back pain Arthrosis of right shoulder region B12 deficiency Cataract Chronic narcotic use Connective tissue disorder Diverticulosis Encounter for long-term opiate analgesic use GERD (gastroesophageal reflux disease) Hepatitis B surface antigen positive High risk medication use Hyperlipidemia Hypertension Immunization counseling Impingement syndrome of right shoulder Inflammatory arthritis Intervertebral disc disorders with radiculopathy, lumbosacral region Labral tear of shoulder, degenerative Lumbar stenosis with neurogenic claudication Multilevel degenerative disc disease Other instability, unspecified joint Polycythemia Pulmonary hypertension Restrictive lung disease Spondylolisthesis, lumbar region Systemic sclerosis Surgical History (Updated 11/29/19 @ 09:15 by Mohamud Brantley MD) H/O: hysterectomy / BSO History of arthroplasty of knee Right History of carpal tunnel release Right History of cataract surgery Bilateral History of colonoscopy 12/2017 --diverticulosis S/P rotator cuff repair Right Vaginal laceration Repair 2012 Wound, open, finger Debridement and closure of wound right ring finger Family History Mother Bleeding disorder Aneurysm Father Cancer Denies family history of Rheumatoid arthritis Lupus Social History Smoking and tobacco status: current every day smoker cigarettes Packs smoked per day: 0.5 Years cigarettes smoked: 45 [ Other cigarette details: Hx of 1.5 PPD ] Quit status (tobacco): considering quitting Alcohol intake: never Lives independently: Yes Household members: children Current occupational status: disabled History of recent travel: No Current gender identity: Female Vitals/I&O/Wt Last Vital Signs Temp 98.6 F 11/29/19 04:00 Pulse 92 11/29/19 04:00 Resp 20 H 11/29/19 04:00 BP 134/83 11/29/19 04:00 Pulse Ox 91 11/29/19 04:00 11/28/19 11/29/19 11/29/19 22:59 06:59 14:59 Intake Total 30 / 30 Balance 30 / 30 Weight last 48 hrs Weight 227 lb 7 oz Weight 178 lb Physical Exam Narrative: EXAM NARRATIVE: The patient was encountered in her hospital room. She does not appear to be in any acute distress. The pupils are equal. No carotid bruits are heard. She has some very faint audible expiratory wheezes grossly but the lungs sound clear by auscultation anteriorly. The heart is regular. The abdomen is moderately obese and bowel sounds are hypoactive. The abdomen is soft but she does have tenderness in the epigastrium, under the costal margin on the right side and down the right side of her abdomen. While I distract her it does not always seem to be completely reproducible, however. No obvious masses are palpated. The extremities reveal no edema. Neurologically, the patient appears to be grossly intact. Data Labs: Other Labs: Laboratory Tests 11/29/19 11/29/19 05:11 06:18 Lactate 1.7 Total Bilirubin 0.8 AST 22 ALT 11 Alkaline Phosphata se 88 Albumin 3.7 Micro: Micro: Microbiology 11/29/19 05:17 Blood Culture - Pr eliminary Blood SPECIMEN COLLE LIDIA 11/29/19 05:11 Blood Culture - Pr eliminary Blood SPECIMEN [facility] A&P Assessment and plan (1) Right upper quadrant abdominal pain: The patient's pain does seem to be centered in the epigastrium and along the right side of the abdomen. By outside imaging, her gallbladder wall was reportedly thickened up to 8 mm in some areas, but her white blood cell count remains normal (it is just mildly elevated this morning) as do her liver function studies. She does have a history of a positive hepatitis B surface antigen, and if she has any history of hepatitis this could certainly be a reason for benign gallbladder wall thickening. Her chronic pain and chronic narcotic use make this situation more difficult to evaluate. She has not had a bowel movement in 5 days and I have to wonder if this could all be secondary to constipation involving the proximal colon. I told the patient that it certainly is possible this is cholecystitis or developing cholecystitis, but I would like to have a little bit more confirmation before I recommend surgery for her. She agrees and certainly does not want to have surgery if it is not absolutely necessary. I am going to order a CT scan of the abdomen and pelvis for this morning. A HIDA scan had apparently already been discussed, as well. Further recommendations will be pending the results of the studies. Status: Acute (2) Cholelithiasis: The patient has had known cholelithiasis for years on imaging. She has no subjective evidence of ongoing history of biliary colic prior to her recent pain. Status: Acute Consult Attestations Medical Necessity Statement: See admitting service's notation. Coding Level of Care Code Acute Blankmaker for Kevin Marcos Diagnoses Right upper quadrant abdominal pain R10.11 Cholelithiasis K80.20
--- NOTE | 2019-11-29 08:33 | CTR_ITS ---
PROCEDURE INFORMATION: Exam: CT Abdomen And Pelvis Without And With Contrast Exam date and time: 11/29/2019 10:17 AM Age: 64 years old Clinical indication: Abdominal pain; Localized; Right upper quadrant (ruq); Prior surgery; Surgery date: 6+ months; Surgery type: Hyst; Patient HX: C/O ruq pain; Additional info: Right upper quadrant pain/sepsis TECHNIQUE: Imaging protocol: Computed tomography of the abdomen and pelvis without and with intravenous contrast. Radiation optimization: All CT scans at this facility use at least one of these dose optimization techniques: automated exposure control; mA and/or kV adjustment per patient size (includes targeted exams where dose is matched to clinical indication); or iterative reconstruction. Contrast material: OMNI 300; Contrast volume: 95 ml; Contrast route: INTRAVENOUS (IV); Other contrast: Oral, dilute Omni 300, 450ml; COMPARISON: abdomen limited [id number] 12/05/2017 7:39 AM RADIATION DOSE METRICS: Total DLP (mGy-cm): 1872.78 FINDINGS: Lungs: There is atelectasis or scar in the right lower lobe of the lung. Liver: Normal. No mass. Gallbladder and bile ducts: The inflammation extends to the gallbladder. However, no definite gallbladder wall thickening. There is a gallstone. Pancreas: Normal. No ductal dilation. Spleen: Normal. No splenomegaly. Adrenals: Normal. No mass. Kidneys and ureters: Normal. No hydronephrosis. Stomach and bowel: There is wall thickening of the ascending colon and hepatic flexure of the colon. No bowel obstruction. Appendix: The appendix is visualized and appears normal. Intraperitoneal space: Unremarkable. No free air. No significant fluid collection. Vasculature: Unremarkable. No abdominal aortic aneurysm. Lymph nodes: Unremarkable. No enlarged lymph nodes. Urinary bladder: Unremarkable as visualized. Reproductive: There has been a hysterectomy. Bones/joints: Degenerative change is identified in the spine. There is no evidence for acute fracture or malalignment. Soft tissues: Unremarkable. CT/CT abdomen pelvis wo/w [id number] IMPRESSION: There is colitis of the ascending and attic flexures of the colon. There is a gallstone although there are no CT findings to suggest cholecystitis.If there is desire for further evaluation, a right upper quadrant ultrasound could be performed. Radiation Dose CTDIVOL = (mGy): DLP = 1872.78 (mGy-cm)
--- NOTE | 2019-11-29 08:58 | PM.CONSULT ---
Providers/Reason For Consult Attending Physician: Jules Lennon Primary Care Provider: Tasha Phillips APN History of Present Illness History of Present Illness Jennastephy Muir is a 64 year old female Meds/Allergies Home Medications and Allergies Home Medications Medication Instructions Recorded Confirmed Last Taken Type albuterol sulfate 90 mcg/actuation 2 puff INHALATION Q6H PRN 03/12/19 11/29/19 Unknown History aerosol inhaler diclofenac sodium 1 % topical gel 2 gm TOPICAL .PRN gm 03/12/19 11/29/19 Unknown History pantoprazole 40 mg tablet,delayed 40 mg PO DAILY #30 tab 05/26/19 11/29/19 Unknown Rx release amlodipine 2.5 mg tablet 2.5 mg PO DAILY #90 tab 07/07/19 11/29/19 Unknown Rx cholecalciferol (vitamin D3) 25 25 mcg PO .3 day cap 07/11/19 11/29/19 Unknown History mcg (1,000 unit) capsule mycophenolate mofetil 500 mg tablet 500 mg PO BID #60 tab 09/02/19 11/20/19 Unknown Rx macitentan 10 mg tablet 10 mg PO DAILY #30 tab 09/17/19 11/29/19 Unknown Rx sildenafil (pulm.hypertension) 20 20 mg PO TID #90 tab 09/17/19 11/20/19 Unknown Rx mg tablet baclofen 20 mg tablet 20 mg PO TID PRN #90 tab 10/24/19 11/29/19 Unknown Rx oxycodone 5 mg tablet 5 mg PO TID PRN 30 Days #90 tab 10/24/19 11/29/19 Unknown Rx oxycodone 5 mg tablet 5 mg PO TID PRN 30 Days #90 tab 10/24/19 11/29/19 Unknown Rx ondansetron 4 mg disintegrating 4 mg PO Q6H PRN #28 tab 11/28/19 Unknown Rx tablet Allergies Allergy/AdvReac Type Severity Reaction Status Date / Time azithromycin Allergy Severe ALGY-Difficulty Verified 11/28/19 23:48 [From Zithromax Z-Merlin] Breathing prednisone Allergy Unknown Verified 11/28/19 23:48 codeine AdvReac Severe ADR-Headach Verified 11/28/19 23:48 e Current Medications Current Medications Generic Name Dose Route Start Last Admin Trade Name Freq PRN Reason Stop Dose Admin Acetaminophen 500 mg 11/29/19 02:03 11/29/19 03:10 Tylenol PO 500 mg Q4H PRN Administration fever Hydromorphone HCl 2 mg 11/29/19 02:03 11/29/19 07:05 Dilaudid Inj IVP Not Given Q4H GERONIMO Dextrose/Sodium Chloride 1,000 mls @ 75 mls/hr 11/29/19 02:03 11/29/19 02:39 Dextrose 5%-Sod Chloride 0.45% IV 75 mls/hr .[id number] GERONIMO Administration Piperacillin Sod/Tazobactam 50 mls @ 12.5 mls/hr 11/29/19 02:30 11/29/19 03:09 Sod 3.375 gm/ Sodium Chloride IV 12.5 mls/hr Q8H GERONIMO Administration Protocol PFSH Acute PFSH: Medical History (Updated 11/29/19 @ 08:59 by Mohamud Brantley MD) Abdominal aortic aneurysm Acute bilateral low back pain Arthrosis of right shoulder region B12 deficiency Cataract Chronic narcotic use Connective tissue disorder Encounter for long-term opiate analgesic use GERD (gastroesophageal reflux disease) Hepatitis B surface antigen positive High risk medication use Hyperlipidemia Hypertension Immunization counseling Impingement syndrome of right shoulder Inflammatory arthritis Intervertebral disc disorders with radiculopathy, lumbosacral region Labral tear of shoulder, degenerative Lumbar stenosis with neurogenic claudication Multilevel degenerative disc disease Other instability, unspecified joint Polycythemia Pulmonary hypertension Restrictive lung disease Spondylolisthesis, lumbar region Systemic sclerosis Surgical History (Updated 11/29/19 @ 08:15 by Mohamud Brantley MD) H/O: hysterectomy History of arthroplasty of knee S/P rotator cuff repair Right Vaginal laceration Repair 2013 Wound, open, finger Debridement and closure of wound right ring finger Family History Mother Bleeding disorder Aneurysm Father Cancer Denies family history of Rheumatoid arthritis Lupus Social History Smoking and tobacco status: current every day smoker cigarettes Packs smoked per day: 0.5 Years cigarettes smoked: 45 [ Other cigarette details: Hx of 1.5 PPD ] Quit status (tobacco): considering quitting Alcohol intake: never Lives independently: Yes Household members: children Current occupational status: disabled History of recent travel: No Current gender identity: Female Vitals/I&O/Wt Last Vital Signs Temp 100.3 F H 11/29/19 08:13 Pulse 101 H 11/29/19 08:13 Resp 18 11/29/19 08:13 BP 129/84 11/29/19 08:13 Pulse Ox 90 11/29/19 08:13 11/28/19 11/29/19 11/29/19 22:59 06:59 14:59 Intake Total 30 / 30 Balance 30 / 30 Weight last 48 hrs Weight 227 lb 7 oz Weight 178 lb Data Micro: Micro: Microbiology 11/29/19 05:17 Blood Culture - Pr eliminary Blood SPECIMEN COLLE LIDIA 11/29/19 05:11 Blood Culture - Pr eliminary Blood SPECIMEN [facility] A&P Assessment and plan (1) Cholelithiasis: Status: Acute (2) Right upper quadrant abdominal pain: Status: Acute Coding Level of Care Code Acute Field Marketer for Kevin Marcos Diagnoses Cholelithiasis K80.20 Right upper quadrant abdominal pain R10.11
[2019-11-29 09:21] LABS: Add Urine Microscopic? NO
[2019-11-29 09:23] LABS: Urine Appearance Clear (CLEAR); Urine Color Dark Yellow (Yellow)
[2019-11-29 09:24] LABS: Bilirubin Urine Neg (Negative); Blood Urine Neg (Negative); Glucose Urine UA Norm (Normal); Ketones Urine Negative (Negative); Leukocyte Esterase Urine Negative (Negative); Nitrate Urine Negative (Negative); Protein Urine Neg (Negative); Urobilinogen Urine 4 mg/dL (Negative); pH Urine 7 (5-7)
--- NOTE | 2019-11-29 09:53 | P.PN_ITS ---
Subjective Subjective: Interval history: She is having malaise which she attributes to having a fever currently. She says that her pain has migrated from epigastric area to the right side of the abdomen. She was also concerned that her urine appeared red when she is urinated, although I saw the sample, and appears somewhat dark orange, perhaps concentrated. Did not see discoloration there was suggest hematuria. UA has been requested. Vitals/I&O/Wt Last Vital Signs Temp 100.3 F H 11/29/19 08:13 Pulse 101 H 11/29/19 08:13 Resp 18 11/29/19 08:13 BP 129/84 11/29/19 08:13 Pulse Ox 90 11/29/19 08:13 11/28/19 11/29/19 11/29/19 22:59 06:59 14:59 Intake Total 30 / 30 Balance 30 / 30 Weight last 48 hrs Weight 103.164 kg Weight 80.739 kg Physical Exam Const: COMMON NORMALS: no acute distress and patient oriented x3 HENMT: COMMON NORMALS: oropharynx normal Neck/C-Spine: COMMON NORMALS: no JVD Resp: COMMON NORMALS: normal respiratory effort AUSCULTATION: wheezes Cardio: COMMON NORMALS: no JVD, regular rhythm, S1 normal heart sound present, S2 normal heart sound present and No murmurs present (Cardio) RHYTHM: regular rhythm HEART SOUNDS: S1 normal heart sound present and S2 normal heart sound present GI: COMMON NORMALS: Normal to inspection, nondistended, normoactive bowel sounds present, Soft to palpation and non-tender PALPATION: Yes Soft to palpation and Yes Tenderness to palpation present (GI) (R side abdomen) Extremity: COMMON NORMALS: no joint enlargement and no pedal edema Neuro: COMMON NORMALS: patient oriented x3 and moves all extremities Skin: COMMON NORMALS: no rashes or lesions noted GENERAL SKIN EXAM: no rashes or lesions noted Data : 11/29/19 05:11 11/29/19 06:18 Micro: Microbiology 11/29/19 05:17 Blood Culture - Preliminary Blood SPECIMEN COLLECTED 11/29/19 05:11 Blood Culture - Preliminary Blood SPECIMEN COLLECTED A&P Assessment and plan (1) Acute cholecystitis: Possible. Overnight fever one 1.9. 2 AM. Heart rate 90-100. Has been having abdominal pain. Appears this was radiating to the back initially. Lipase was found normal. Noted cholelithiasis and thickening of [place]bl[place] [facility] [place] Discussed with surgery, appreciate recommendations. Recommendations for additional assessment by CT scan. HIDA scan is canceled for now. At this time due to possible sepsis continue Zosyn. Pending hepatitis panel. Hx Hep B surface antigen. Status: Acute (2) Cholelithiasis: Noted. Status: Acute (3) Sepsis: As above. Status: Acute (4) Abdominal aortic aneurysm: 3.5 x 3.3 cm no active decompensation, following up with Dr. Anderson Status: Acute Qualifiers: Presence of rupture: without rupture Qualified Code(s): I71.4 - Abdominal aortic aneurysm, without rupture (5) Encounter for long-term opiate analgesic use: Status: Chronic (6) Wheezing: Status: Acute Additional A&P Information Opioid-induced constipation We will use senna, MiraLAX and glycerin suppositories. Dulcolax supp. 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 Valencia Smoking addiction: Continue to encourage cessation. Nicotine replacement for cravings. Full code DVT prophylaxis discussed w surgery ok for SC heparin N.p.o. Attestations Medical Necessity Statement*: Continue admission for assessment and management of possible cholecystitis, sepsis. 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
[2019-11-29 10:24] LABS: Hepatitis A Antibody IgM Non-Reactive (Nonreactive); Hepatitis B Core AB, Total Non-Reactive (Nonreactive); Hepatitis B Surface AB 3.5 (0-8.5); Hepatitis B Surface Antigen Non-Reactive (Nonreactive); Hepatitis C Virus Antibody Non-Reactive (Nonreactive)
[2019-11-29] MEDS: heparin 5,000 unit/mL INJ 1 mL 5000 UNIT SUBCUT ×2 (11:04→16:57)
[2019-11-29] MEDS: bisacodyl 10 mg Supp PR (11:04)
[2019-11-29] MEDS: iohexol 300 mg/mL 100 mL Btl IV (12:38)
[2019-11-29] MEDS: iohexol 300 mg/mL 50 mL Btl PO (12:39)
--- NOTE | 2019-11-29 13:43 | P.ANESASSM_ITS ---
Pre-Anesthetic Assessment Pre-Anesthetic Assessment: Height/Weight: Height 1.68 m Weight 103.164 kg Temp Pulse Resp BP Pulse Ox 98.9 F 98 18 120/76 91 11/29/19 11:49 11/29/19 11:49 11/29/19 11:49 11/29/19 11:49 11/29/19 11:49 Preop Diagnosis: cholecystitis Proposed Procedure: Operation Date: 11/29/19 13:40 Proposed Procedures p Laparoscopic Cholecystectomy(Not Applicable) - Mohamud Brantley MD Familial anesthetic complications: None Was Beta Praneeth taken within 24 hours: N/A Last intake: Intake Last Liquid Date 11/29/19 Last Liquid Time 03:00 Last Solid Date 11/27/19 Last Solid Time 09:00 Social: Social History: Tobacco and No alcohol Exam: Pre-Anes Outpt Exam: alert, oriented x 3, clear to auscultation bilaterally and regular rate & rhythm Additional Exam Findings (including area of procedure): wheezes (R> L) Airway: Cervical ROM: WNL MP: 3 Dentition: Other (edentulous) Pulmonary: Pulmonary: COPD and Cough (for the past couple of days (states it from laying on her back for too long in setting of high mucus production - Covid Ag negative) Comments: hx pulmonary HTN, most recent echo suggests this is resolving PFTs from 08/26 suggest only mild restrictive lung disease, but decreased DLCO CV/HEM: CV/HEM: HTN Comments: AAA followed by Dr. Anderson Metabolic: Metabolic: Hyperlipidemia Anesthetic Plan: ASA status: 3 Anesthesia: General Risk of > 500 ml blood loss (7ml/kg in children): No Meds/Allergies Current Medications: Current Medications Generic Name Dose Route Start Last Admin Trade Name Freq PRN Reason Stop Dose Admin Acetaminophen 500 mg 11/29/19 02:03 11/29/19 03:10 Tylenol PO 500 mg Q4H PRN Administration fever Heparin Sodium (Be ef Lung) 5,000 unit 11/29/19 10:15 11/29/19 11:04 Heparin SUBCUT 5,000 unit Q8H GERONIMO Administration Dextrose/Sodium Ch loride 1,000 mls @ 75 ml s/hr 11/29/19 02:03 11/29/19 02:39 Dextrose 5%-Sod Chloride 0.45% IV 75 mls/hr .[id number] GERONIMO Administration Piperacillin Sod/T azobactam 50 mls @ 12.5 mls /hr 11/29/19 02:30 11/29/19 11:04 Sod 3.375 gm/ So dium Chloride IV 12.5 mls/hr Q8H GERONIMO Administration Protocol Polyethylene Glyco l 17 gm 11/29/19 09:00 11/29/19 10:29 Miralax PO Not Given DAILY GERONIMO Senna/Docusate Sod ium 1 tab 11/29/19 09:00 11/29/19 10:29 Senna-S PO Not Given BID GERONIMO PFSH Anesthesia PFSH: Medical History (Updated 11/29/19 @ 10:02 by Jules Lennon MD) Abdominal aortic aneurysm Acute bilateral low back pain Arthrosis of right shoulder region B12 deficiency Cataract Chronic narcotic use Connective tissue disorder Diverticulosis Encounter for long-term opiate analgesic use GERD (gastroesophageal reflux disease) Hepatitis B surface antigen positive High risk medication use Hyperlipidemia Hypertension Immunization counseling Impingement syndrome of right shoulder Inflammatory arthritis Intervertebral disc disorders with radiculopathy, lumbosacral region Labral tear of shoulder, degenerative Lumbar stenosis with neurogenic claudication Multilevel degenerative disc disease Other instability, unspecified joint Polycythemia Pulmonary hypertension Restrictive lung disease Spondylolisthesis, lumbar region Systemic sclerosis Surgical History (Updated 11/29/19 @ 09:15 by Mohamud Brantley MD) H/O: hysterectomy / BSO History of arthroplasty of knee Right History of carpal tunnel release Right History of cataract surgery Bilateral History of colonoscopy 12/2017 --diverticulosis S/P rotator cuff repair Right Vaginal laceration Repair 2012 Wound, open, finger Debridement and closure of wound right ring finger Family History Mother Bleeding disorder Aneurysm Father Cancer Denies family history of Rheumatoid arthritis Lupus Social History Smoking and tobacco status: current every day smoker cigarettes Packs smoked per day: 0.5 Years cigarettes smoked: 45 [ Other cigarette details: Hx of 1.5 PPD ] Quit status (tobacco): considering quitting Alcohol intake: never Lives independently: Yes Household members: children Current occupational status: disabled History of recent travel: No Current gender identity: Female Data Anesthesia CBC & Chem 7: 11/29/19 05:11 11/29/19 06:18 Other Labs: Laboratory Results - last 48 hr 11/29/19 11/29/19 11/29/19 00:25 05:11 05:11 WBC 11.2 H RBC 4.54 Hgb 15.3 Hct 47.4 H MCV 104.4 H MCH 33.7 MCHC 32.3 RDW 14.4 Plt Count 191 MPV 11.6 H Neut % (Auto) 78.3 Lymph % (Auto) 13.9 [place] % (Auto) 7.1 Eos % (Auto) 0.1 Baso % (Auto) 0.2 Neut # (Auto) 8.77 H Lymph # (Auto) 1.6 [place] # (Auto) 0.8 Eos # (Auto) 0.0 Baso # (Auto) 0.0 Nucleated RBC % (auto) 0 Nucleated RBCs # 0.0 PT INR APTT Fibrinogen Sodium Cancelled Potassium Cancelled Chloride Cancelled Carbon Dioxide Cancelled Anion Gap Cancelled BUN Cancelled Creatinine Cancelled GFR Calculation Cancelled Glucose Cancelled Calculated Osmolality Cancelled Lactate Calcium Cancelled Total Bilirubin Cancelled AST Cancelled ALT Cancelled Alkaline Phosphatase Cancelled Total Protein Cancelled Albumin Cancelled Globulin Cancelled Urine Color Urine Appearance Urine pH Ur Specific Douglas Urine Protein Urine Glucose (UA) Urine Ketones Urine Blood Urine Nitrate Urine Bilirubin Urine Urobilinogen Ur Leukocyte Esterase Hepatitis A IgM Ab Hep Bs Antigen Hep Bs Antibody Hep B Core Total Ab Hepatitis C Antibody SARS-CoV-2 Ag (Rapid) Negative 11/29/19 11/29/19 11/29/19 05:11 05:11 05:11 WBC RBC Hgb Hct MCV MCH MCHC RDW Plt Count 191 MPV Neut % (Auto) Lymph % (Auto) [place] % (Auto) Eos % (Auto) Baso % (Auto) Neut # (Auto) Lymph # (Auto) [place] # (Auto) Eos # (Auto) Baso # (Auto) Nucleated RBC % (auto) Nucleated RBCs # PT 13.40 INR 0.99 APTT 27.9 Fibrinogen 640 H Sodium Potassium Chloride Carbon Dioxide Anion Gap BUN Creatinine GFR Calculation Glucose Calculated Osmolality Lactate 1.7 Calcium Total Bilirubin AST ALT Alkaline Phosphatase Total Protein Albumin Globulin Urine Color Urine Appearance Urine pH Ur Specific Douglas Urine Protein Urine Glucose (UA) Urine Ketones Urine Blood Urine Nitrate Urine Bilirubin Urine Urobilinogen Ur Leukocyte Esterase Hepatitis A IgM Ab Non-reactive Hep Bs Antigen Non-reactive Hep Bs Antibody 3.5 Hep B Core Total Ab Non-reactive Hepatitis C Antibody Non-reactive SARS-CoV-2 Ag (Rapid) 11/29/19 11/29/19 06:18 08:59 WBC RBC Hgb Hct MCV MCH MCHC RDW Plt Count MPV Neut % (Auto) Lymph % (Auto) [place] % (Auto) Eos % (Auto) Baso % (Auto) Neut # (Auto) Lymph # (Auto) [place] # (Auto) Eos # (Auto) Baso # (Auto) Nucleated RBC % (auto) Nucleated RBCs # PT INR APTT Fibrinogen Sodium 137 Potassium 4.3 Chloride 101 Carbon Dioxide 22 Anion Gap 18.3 BUN 12 Creatinine 0.7 GFR Calculation 84.5 L Glucose 98 Calculated Osmolality 284 L Lactate Calcium 8.9 Total Bilirubin 0.8 AST 22 ALT 11 Alkaline Phosphatase 88 Total Protein 6.1 L Albumin 3.7 Globulin 2.4 Urine Color Dark yellow Urine Appearance Clear Urine pH 7 Ur Specific Douglas 1.010 Urine Protein Neg Urine Glucose (UA) Norm Urine Ketones Negative Urine Blood Neg Urine Nitrate Negative Urine Bilirubin Neg Urine Urobilinogen 4 H Ur Leukocyte Esterase Negative Hepatitis A IgM Ab Hep Bs Antigen Hep Bs Antibody Hep B Core Total Ab Hepatitis C Antibody SARS-CoV-2 Ag (Rapid) Micro: Microbiology 11/29/19 05:17 Blood Culture - Preliminary Blood SPECIMEN COLLECTED 11/29/19 05:11 Blood Culture - Preliminary Blood SPECIMEN COLLECTED Cardiac Studies: No Data to Display
[2019-11-29] MEDS: sodium chloride 0.9% 1,000 ML 30 ML IV (13:59)
[2019-11-29] MEDS: metroNIDAZOLE IV 500 MG/100 ML PREMIX 100 MG IV (14:36)
--- NOTE | 2019-11-29 14:56 | P.OP_ITS ---
Operative Report Date of procedure: November 29, 2019 Pre-op Diagnosis: Acute calculus cholecystitis. Post-op diagnosis: same Procedure Done: Laparoscopic cholecystectomy. Specimens removed/disposition: Gallbladder. Surgeon: Mohamud Brantley Anesthesia: General Estimated blood loss (mL): 20 Complications: None. Condition: stable Disposition: PACU Procedure: The patient was brought to the Operating Room and was placed in a supine position on the Operating Room table. General endotracheal anesthesia was induced. The abdomen was prepped and draped in a sterile fashion. A small vertical incision was carried out in the inferior aspect of the umbilicus. Blunt dissection was carried out down to the fascia, which was grasped with a Az clamp. A stay suture of 0 Vicryl was placed on either side of the midline and the midline fascia was incised. The underlying peritoneum was opened bluntly and the Jaskaran port was placed directly into the peritoneal cavity and was held in place with the inflatable balloon. The peritoneal cavity was insufflated with carbon dioxide. The laparoscope was used to inspect the abdominal cavity. No gross abnormalities were initially noted. A 5 millimeter port was placed in the epigastrium under direct vision. Two 5-millimeter ports were placed on the right side of the abdomen under direct vision. The omentum was pulled down revealing a distended gallbladder with changes typical of acute cholecystitis with a hyperemic and edematous gallbladder wall. A laparoscopic needle and 60 cc syringe were used to remove approximately 50 mL of very dark-colored bile from the gallbladder lumen to decompress it. Some of the bile was sent for culture. The gallbladder was then grasped and was elevated. As more of the fundus became a visible, it became apparent that patient had multiple gangrenous spots all over the gallbladder. No evidence of gross perforation was present. Blunt dissection and hydrodissection were carried out in the infundibular region of the gallbladder and the cystic duct and cystic artery were identified. The gallbladder was partially removed from the liver bed using cautery and the spatula to confirm the anatomy before the structures were clipped and divided. The gallbladder was then removed from the liver bed using cautery and the spatula. After the gallbladder had been removed from the liver bed, the la paroscope was moved to the epigastric port and the gallbladder was removed from the peritoneal cavity through the umbilical port site after being placed in a laparoscopic bag. The liver bed and surrounding tissue was quite friable and and inflamed. For this reason, it was decided to leave a drain in the liver bed. A 19 [place] fluted round Johnny drain was introduced into the abdomen and brought out through the lateral 5 mm port site on the right side. The drain was placed in the subhepatic space and was then sutured to the skin with a suture of 2-0 silk. A final round of irrigation was carried out. The Mcnally port was then removed from the umbilical incision and the stay sutures of Vicryl were tied to each other at the umbilicus, closing the defect so that it was airtight. The perihepatic spaces and the liver bed were reinspected. No ongoing problems were seen. The remaining ports were removed from the abdominal wall and the pneumoperitoneum was evacuated. All skin incisions were closed using inverted interrupted sutures of 4-0 Vicryl. Benzoin and Steri-Strips were placed over the incisions and Band-Aids followed. A drain sponge and sterile dressing were placed over the drain site. The patient was taken to the Recovery Area in stable condition postoperatively.
--- NOTE | 2019-11-29 15:04 | SUR.PHASEI ---
1502 PATIENT TO PACU FROM OR. RR EVEN AND UNLABORED. ORAL AIRWAY IN PLACE. 4 INCISIONS TO ABDOMEN, CDI WITH DARYL DRAIN IN PLACE.
--- NOTE | 2019-11-29 15:13 | SUR.PHASEI ---
1510 ORAL AIRWAY REMOVED. SPO2 97% ON SIMPLE MASK AT 8L.
--- NOTE | 2019-11-29 15:42 | SUR.PHASEI ---
1527 PATIENT TO MED SURG. 4 INCISIONS, CDI WITH DARYL DRAIN TO RIGHT UPPER QUAD.
[2019-11-29] MEDS: sennosides-docusate Tablet 1 TAB PO (16:56)
[2019-11-29] MEDS: oxyCODONE 5 mg IR Tab/Cap PO (16:56)
[2019-11-29] MEDS: ketorolac 30 mg/mL INJ IVP (23:07)
[2019-11-30] VITALS (9 sets, daily range): BP systolic 97–121; BP diastolic 63–82; PULSE 75–90; RESP 16–22; TEMP 36.6–37.1; O2SAT 91–95
[2019-11-30] MEDS: piperacillin-tazobactam 3.375 GM in sodium chloride 0.9% (plus) 50 ML IV ×3 (02:12→17:37)
[2019-11-30] MEDS: heparin 5,000 unit/mL INJ 1 mL 5000 UNIT SUBCUT ×3 (02:12→17:37)
[2019-11-30 06:01] LABS: Basophils % 0.3 %; Eosinophils % 0.1 %; Hematocrit 40.5 % (37.0-47.0); Hemoglobin 13.1 g/dL (11.5-15.3); Lymphocytes # 1.3 10^3/uL (0.8-4.8); Lymphocytes % 17.9 %; Mean Corpuscular HGB Conc 32.3 g/dL (30.0-36.0); Mean Corpuscular Hemoglobin 33.7 pg (28.0-34.0); Mean Corpuscular Volume 104.1 fL (81-99); Mean Platelet Volume 11.5 fL (7.4-10.4); Monocytes # 0.5 10^3/uL (0.2-0.9); Monocytes % 6.4 %; Nucleated Red Blood Cells % 0 %; Platelet Count 153 10^3/cmm (130-400); Red Blood Count 3.89 10^6/uL (4.1-5.3); Red Cell Distribution Width 14.5 % (12.1-15.1); White Blood Count 7.3 10^3/uL (4.0-10.0)
[2019-11-30 06:25] LABS: Alanine Aminotransferase 15 U/L (0-33); Alkaline Phosphatase 75 IU/L (35-105); Anion Gap 10.9 (5-19); Aspartate Amino Transferase 21 U/L (0-32); Blood Urea Nitrogen 16 mg/dL (8-23); Calcium 8.3 mg/dL (8.5-10.5); Carbon Dioxide 25 mmol/L (22-29); Chloride 101 mmol/L (98-107); Globulin 2.8 g/dL (1.3-4.6); Glomerular Filtration Rate 72.4 mL/min (90-130); Glucose 97 mg/dL (65-115); Osmolality Calculated 277 mOsm/kg (285-295); Potassium 3.9 mmol/L (3.5-5.1); Sodium 133 mmol/L (136-145); Total Bilirubin 1.1 mg/dL (0.15-1.2); Total Protein 5.8 g/dL (6.6-8.7)
--- NOTE | 2019-11-30 07:32 | PM.PN ---
Subjective Subjective: Interval history: The patient says she already feels better. She is not passing any flatus that she is aware of. Vitals/I&O/Wt Last Vital Signs Temp 97.9 F 11/30/19 07:12 Pulse 83 11/30/19 07:12 Resp 18 11/30/19 07:12 BP 97/63 11/30/19 07:12 Pulse Ox 93 11/30/19 07:12 11/29/19 11/30/19 11/30/19 22:59 06:59 14:59 Intake Total 1260 / 1725.5 240 / 1725.5 Output Total 525 / 1375 150 / 1375 Balance 735 / 350.5 90 / 350.5 Weight last 48 hrs Weight 227 lb 7 oz Weight 178 lb Physical Exam Narrative: EXAM NARRATIVE: Patient is afebrile and vital signs appear to be fairly stable. The incisions look good. The Johnny drain has a small amount of serosanguineous fluid in the bulb. Data : 11/30/19 05:25 11/30/19 05:25 Other Labs: Laboratory Tests 11/30/19 05:25 Total Bilirubin 1.1 AST 21 ALT 15 Alkaline Phosphatase 75 Micro: Microbiology 11/29/19 05:17 Blood Culture - Preliminary Blood NEGATIVE TO DATE 11/29/19 05:11 Blood Culture - Preliminary Blood NEGATIVE TO DATE 11/29/19 14:15 Gram Stain - Final Gallbladder Fluid A&P Assessment and plan (1) Acute cholecystitis: The CAT scan was read yesterday by the radiologist as being most consistent with colitis involving the hepatic flexure area of the colon. To my reading, this was almost certainly acute cholecystitis making that area of the colon appear inflammatory. She was taken to surgery and she clearly had acute cholecystitis with early gangrenous changes of the gallbladder. Continue clear liquid diet for now. Increase activity. I sent some bile for culture at the time of cholecystectomy; initial Gram stain shows gram-negative rods which statistically are going to be most consistent with E. coli or Klebsiella. I do not know that we need to wait for all of the results and sensitivities prior to discharge, as I am going to recommend she stay on antibiotics as an outpatient for a week or so, anyway. I told her that I think we need to continue watching her in the hospital today but she probably will be ready for discharge as early as tomorrow if okay with all involved. Status: Acute Attestations Medical Necessity Statement*: See admitting service's notation. 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
[2019-11-30] MEDS: oxyCODONE 5 mg IR Tab/Cap PO ×2 (07:43→14:16)
[2019-11-30] MEDS: pantoprazole DR 40 mg Tablet PO (08:17)
[2019-11-30] MEDS: sennosides-docusate Tablet 1 TAB PO ×2 (08:17→17:37)
[2019-11-30] MEDS: baclofen 10 mg Tablet 20 MG PO (08:20)
[2019-11-30] MEDS: polyethylene glycol 3350 Pkt 17 gm PO (08:21)
[2019-11-30] MEDS: D5-NS 0.45% + KCL 20 mEq 20 MEQ/1,000 ML BAG 100 MEQ IV (08:21)
--- NOTE | 2019-11-30 08:34 | XRR_ITS ---
PROCEDURE INFORMATION: Exam: XR Chest, 1 View Exam date and time: 11/30/2019 8:35 AM Age: 64 years old Clinical indication: Dyspnea; Additional info: Hypoxia TECHNIQUE: Imaging protocol: XR of the chest Views: 1 view. COMPARISON: CT chest con [id number] 08/21/2018 9:24 AM FINDINGS: Lungs: Unremarkable. No consolidation. Pleural space: Unremarkable. No pleural effusion. No pneumothorax. Heart/Mediastinum: Unremarkable. No cardiomegaly. Bones/joints: Unremarkable. XR/XR chest 1V portable [id number] IMPRESSION: No acute findings.
--- NOTE | 2019-11-30 09:23 | PM.PN ---
Subjective Subjective: Interval history: She reports she is feeling better. Says that her bottom hurts from sitting down. Some abdominal discomfort, but no mayra pain at rest currently. Vitals/I&O/Wt Last Vital Signs Temp 97.9 F 11/30/19 07:12 Pulse 83 11/30/19 07:12 Resp 16 11/30/19 07:43 BP 97/63 11/30/19 07:12 Pulse Ox 93 11/30/19 07:12 11/29/19 11/30/19 11/30/19 22:59 06:59 14:59 Intake Total 1260 / 1485.5 240 / 1725.5 Output Total 525 / 1225 150 / 1375 Balance 735 / 260.5 90 / 350.5 Weight last 48 hrs Weight 103.164 kg Weight 80.739 kg Physical Exam Const: COMMON NORMALS: no acute distress and patient oriented x3 HENMT: COMMON NORMALS: oropharynx normal Neck/C-Spine: COMMON NORMALS: no JVD Resp: COMMON NORMALS: normal respiratory effort AUSCULTATION: wheezes Cardio: COMMON NORMALS: no JVD, regular rhythm, S1 normal heart sound present, S2 normal heart sound present and No murmurs present (Cardio) RHYTHM: regular rhythm HEART SOUNDS: S1 normal heart sound present and S2 normal heart sound present GI: COMMON NORMALS: Normal to inspection, nondistended, normoactive bowel sounds present, Soft to palpation and non-tender PALPATION: Yes Soft to palpation and Yes Tenderness to palpation present (GI) (Some diffuse discomfort on palpation, but more so R side abdomen) OTHER: CLIF drain right side. Trocar wounds without discharge or surrounding erythema. Extremity: COMMON NORMALS: no joint enlargement and no pedal edema Neuro: COMMON NORMALS: patient oriented x3 and moves all extremities Skin: COMMON NORMALS: no rashes or lesions noted GENERAL SKIN EXAM: no rashes or lesions noted Data : 11/30/19 05:25 11/30/19 05:25 Micro: Microbiology 11/29/19 05:17 Blood Culture - Preliminary Blood NEGATIVE TO DATE 11/29/19 05:11 Blood Culture - Preliminary Blood NEGATIVE TO DATE 11/29/19 14:15 Gram Stain - Final Gallbladder Fluid A&P Assessment and plan (1) Hypoxia: She appears to be requiring more oxygen, up to 4.5 L nasal cannula today. Does not complain of shortness of breath. Noted mild wheeze yesterday, again noted today. Today more so in the right lower lung. Will obtain chest x-ray. Continue nebs. Incentive spirometer. Status: Acute (2) Acute cholecystitis: Status post laparoscopic cholecystectomy 11/28 for acute cholecystitis. Gram-negative rods growing in gallbladder. At this time continue Zosyn. No vomiting. So far no flatus. Fever appears to be somewhat better, but still 100.1 temp last night. WBC count now resolved. Tachycardia resolved. Sepsis appears to be improving. Neg hepatitis panel with hep B immunity. Status: Acute (3) Cholelithiasis: Noted. Status: Acute (4) Sepsis: As above. Status: Acute (5) Abdominal aortic aneurysm: 3.5 x 3.3 cm no active decompensation, following up with Dr. Anderson Status: Acute Qualifiers: Presence of rupture: without rupture Qualified Code(s): I71.4 - Abdominal aortic aneurysm, without rupture (6) Encounter for long-term opiate analgesic use: Status: Chronic Additional A&P Information Opioid-induced constipation: senna, MiraLAX and glycerin suppositories. 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 Valencia Smoking addiction: Continue to encourage cessation. Nicotine replacement for cravings. Full code DVT SC heparin CLD Attestations Medical Necessity Statement*: Continue admission for assessment of management of acute cholecystitis with gram-negative sepsis, hypoxia. Coding Level of Care Code Acute Repairer Evaporator for [facility] Diagnoses Hypoxia R09.02 Acute cholecystitis K81.0 Cholelithiasis K80.20 Sepsis A41.9 Abdominal aortic aneurysm I71.4 Presence of rupture: without rupture Encounter for long-term opiate analgesic use Z79.891
--- NOTE | 2019-11-30 10:34 | PC.NURSE ---
Patient ambulated approximately 45 feet at this time. Patient did well.
--- NOTE | 2019-11-30 15:19 | PC.NURSE ---
Patient ambulated approximately 85 feet with a walker at this time. Patient states that she uses a walker at home.
[2019-12-01] VITALS (10 sets, daily range): BP systolic 112–133; BP diastolic 64–79; PULSE 62–94; RESP 16–22; TEMP 36.7–37.1; O2SAT 93–95
[2019-12-01 05:23] LABS: Basophils % 0.2 %; Eosinophils # 0.1 10^3/uL (0.0-0.8); Eosinophils % 1.4 %; Hematocrit 38.6 % (37.0-47.0); Hemoglobin 12.5 g/dL (11.5-15.3); Lymphocytes % 20.7 %; Mean Corpuscular HGB Conc 32.4 g/dL (30.0-36.0); Mean Corpuscular Hemoglobin 34.1 pg (28.0-34.0); Mean Corpuscular Volume 105.2 fL (81-99); Mean Platelet Volume 11.2 fL (7.4-10.4); Monocytes # 0.3 10^3/uL (0.2-0.9); Monocytes % 5.9 %; Neutrophils # 3.49 10^3/uL (1.8-7.7); Neutrophils % 71.4 %; Nucleated Red Blood Cells % 0 %; Platelet Count 158 10^3/cmm (130-400); Red Blood Count 3.67 10^6/uL (4.1-5.3); Red Cell Distribution Width 14.4 % (12.1-15.1); White Blood Count 4.9 10^3/uL (4.0-10.0)
[2019-12-01] MEDS: D5-NS 0.45% + KCL 20 mEq 20 MEQ/1,000 ML BAG 100 MEQ IV (05:23)
[2019-12-01] MEDS: piperacillin-tazobactam 3.375 GM in sodium chloride 0.9% (plus) 50 ML IV ×2 (05:25→13:53)
[2019-12-01] MEDS: heparin 5,000 unit/mL INJ 1 mL 5000 UNIT SUBCUT ×3 (05:25→17:24)
[2019-12-01 05:48] LABS: Alanine Aminotransferase 12 U/L (0-33); Albumin Level 2.9 g/dL (3.5-5.2); Alkaline Phosphatase 72 IU/L (35-105); Anion Gap 11.9 (5-19); Aspartate Amino Transferase 18 U/L (0-32); Blood Urea Nitrogen 9 mg/dL (8-23); Calcium 8.6 mg/dL (8.5-10.5); Carbon Dioxide 24 mmol/L (22-29); Chloride 103 mmol/L (98-107); Glomerular Filtration Rate 84.5 mL/min (90-130); Glucose 94 mg/dL (65-115); Osmolality Calculated 278 mOsm/kg (285-295); Potassium 3.9 mmol/L (3.5-5.1); Sodium 135 mmol/L (136-145); Total Bilirubin 0.6 mg/dL (0.15-1.2); Total Protein 5.9 g/dL (6.6-8.7)
--- NOTE | 2019-12-01 05:52 | PM.PN ---
Subjective Subjective: Interval history: The patient continues to feel better daily. She is now passing flatus and getting her appetite back. She would like some regular food, but says that she will have to be on a full liquid diet because I do not have my teeth. Vitals/I&O/Wt Last Vital Signs Temp 98.3 F 12/01/19 03:00 Pulse 94 12/01/19 03:00 Resp 20 H 12/01/19 03:00 BP 121/79 12/01/19 03:00 Pulse Ox 93 12/01/19 03:00 11/30/19 11/30/19 12/01/19 14:59 22:59 06:59 Intake Total 530 / 1930 1400 / 1930 Output Total 830 / 1630 800 / 1630 Balance 530 / 300 570 / 300 -800 / 300 Physical Exam Narrative: EXAM NARRATIVE: Bowel sounds are present. The Johnny drain has some serous/serosanguineous fluid in the bulb. The laparoscopic incisions look good. Data : 12/01/19 04:58 12/01/19 04:58 Micro: Microbiology 11/29/19 14:15 Gram Stain - Final Gallbladder Fluid Anaerobic Culture - Preliminary Body Fluid Culture - Preliminary Gram Negative Rods 11/29/19 05:17 Blood Culture - Preliminary Blood NEGATIVE TO DATE 11/29/19 05:11 Blood Culture - Preliminary Blood NEGATIVE TO DATE A&P Assessment and plan (1) Acute cholecystitis: Status post cholecystectomy for acute cholecystitis on 11/29/2019. Advance diet to full liquids (patient does not have her dentures and so we will probably have to send her home without advancing it any further). I am going to start oral Augmentin in anticipation of discharge on oral antibiotics. Status: Acute Attestations Medical Necessity Statement*: See admitting service's notation. Coding Level of Care Code Acute Shampoo Assistant for Kevin Marcos Diagnoses Acute cholecystitis K81.0
[2019-12-01] MEDS: amoxicillin-clav 875-125 mg Tablet 1 TAB PO ×2 (08:28→17:23)
[2019-12-01] MEDS: sennosides-docusate Tablet 1 TAB PO ×2 (08:28→17:23)
[2019-12-01] MEDS: pantoprazole DR 40 mg Tablet PO (08:28)
[2019-12-01] MEDS: polyethylene glycol 3350 Pkt 17 gm PO (08:29)
[2019-12-01] MEDS: oxyCODONE 5 mg IR Tab/Cap PO ×2 (08:30→21:14)
--- NOTE | 2019-12-01 10:52 | PC.CHAP ---
Pastoral Care Encounter/Spiritual Assessment Type of Contact [] Declined diabetes territory manager visit [] Patient/Family/Request visit [] Outpatient visit [] Follow-up visit [] Physician referral [] Code/Alert [x] Routine visit [] Staff referral [] Actively dying [] Patient sleeping [] Family support [] [] Out of room [] Palliative care [] [] Receiving care in room [] Pre-surgical visit [] Trauma [] Long length of stay [] ICU visit [] Other: Relational/Emotional Strength [] Patient feels connected with others/family/visitors/staff [] Distress [x] Loneliness/isolation [] Abandonment Spirituality of Patient [] Person of Flores [] Attends Yarsani of their Flores [x] Believes in Prayer [] Reads Bible or Baptist materials [x] There are Spiritual issues to be addressed Jinriksha Driver Interventions [x] Prayer [x] Active listening [x] Non-anxious presence [x] Spiritual/emotional support [] Crisis/trauma care [] Spiritual counseling [] Bereavement support [] Provided bereavement packet [] Provided Bible/devotional materials [] Provided toy/stuffed animal, coloring book to patient or family member [] Provided Communion [] Anointing/Martin [] Salvation [x] Completed spiritual assessment [] Other: Impact on Illness or Injury [] Angry [] Fearful [x] Anxious [] Often cries [] Exhaustion [] Unable to work [] Unable to attend christianity [] Unable to walk/stand [] Unable to read [] Unable to drive [] Unable to eat/drink [x] Unable to sleep [x] Unable to be with family [] Patient intubated [] Other: Summary Patient stated that she had had a stone removed. She stated that she was missing being able to see her grandchildren due to the Covid-19 situation. She told diabetes territory manager that her two years ago and she exhibits signs of still grieving that loss. Jinriksha Driver prayed with patient. Patient was visited by Jinriksha Driver Maxim Holm. Time spent with patient 15 minutes
--- NOTE | 2019-12-01 10:56 | PM.PN ---
Subjective Subjective: Interval history: On examination patient had just had a bath and feeling drained out. Denies of any nausea, vomiting. Tolerating clear liquid diet well. Denies of having any headache. Patient has remained afebrile and hemodynamically stable. Patient is passing flatus. Vitals/I&O/Wt Last Vital Signs Temp 98.6 F 12/01/19 07:00 Pulse 94 12/01/19 08:12 Resp 18 12/01/19 08:30 BP 120/77 12/01/19 07:00 Pulse Ox 93 12/01/19 08:30 11/30/19 12/01/19 12/01/19 22:59 06:59 14:59 Intake Total 1400 / 1930 480 / 480 Output Total 830 / 830 1100 / 1930 300 / 300 Balance 570 / 1100 -1100 / 0 180 / 180 Physical Exam Narrative: EXAM NARRATIVE: General: No acute distress, AO x3 HEENT: PERRLA, pupils bilaterally equal and reactive Chest: Normal vesicular breath sounds, no added sounds, equal good air entry bilaterally CVS: S1-S2 regular, no murmurs, no tachycardia, no gallops, no rubs Abdomen: Soft, nontender,, laparoscopic incision looks healthy, drain having serosanguineous fluid in bulb, no organomegaly, bowel sounds present Neuro: No focal deficits, no facial deformity, AO x3, power 5/5 in all limbs Data : 12/01/19 04:58 12/01/19 04:58 Micro: Microbiology 11/29/19 14:15 Gram Stain - Final Gallbladder Fluid Anaerobic Culture - Preliminary Body Fluid Culture - Preliminary Gram Negative Rods A&P Assessment and plan (1) Hypoxia: Most likely because of atelectasis. Patient complaining of occasional shortness of breath with expectoration which is clear and mucoid. Patient has remained afebrile last 48 hours. White count trending down. Patient has been on Zosyn since admission. Today is day 3 of Zosyn. Continue nebulization, incentive spirometry. Physical therapy. Status: Acute (2) Acute cholecystitis: Fever appears to be somewhat better, but still 100.1 temp last night. WBC count now resolved. Tachycardia resolved. Sepsis appears to be improving. Status post laparoscopic cholecystectomy 11/28 for acute cholecystitis. Gram-negative rods growing in gallbladder. For now we will start patient on oral Augmentin and levofloxacin. Stop Zosyn. Neg hepatitis panel with hep B immunity. Status: Acute (3) Cholelithiasis: Noted. Status: Acute (4) Sepsis: As above. Status: Acute (5) Abdominal aortic aneurysm: 3.5 x 3.3 cm no active decompensation, following up with Dr. Anderson Status: Acute Qualifiers: Presence of rupture: without rupture Qualified Code(s): I71.4 - Abdominal aortic aneurysm, without rupture (6) Encounter for long-term opiate analgesic use: Status: Chronic Additional A&P Information Opioid-induced constipation: senna, MiraLAX and glycerin suppositories. Connective tissue disorder Pulmonary hypertension, restrictive lung disease with underlying scleroderma Follows up with weight control lecturer, currently she has withheld CellCept because of abdominal cramps Polycythemia vera most likely secondary to chronic smoking: Following up with Dr. Valencia Smoking addiction: Continue to encourage cessation. Nicotine replacement for cravings. Full code Heparin 5000 every 8 for DVT prophylaxis. Full liquid diet. Attestations Medical Necessity Statement*: Sepsis, acute cholecystitis, post cholecystectomy, hypoxia Time Spent in Patient Care: Greater than 35 minutes (>than 50% of time spent in counselling and/or direct pt care on unit). Coding Level of Care Code Acute Residential Driver for Kevin Marcos Diagnoses Hypoxia R09.02 Acute cholecystitis K81.0 Cholelithiasis K80.20 Sepsis A41.9 Abdominal aortic aneurysm I71.4 Presence of rupture: without rupture Encounter for long-term opiate analgesic use Z79.891
--- NOTE | 2019-12-01 12:26 | ANE.PACU2 ---
Inpatient post-anesthesia follow up: Airway intact: Yes Vital signs: Temperature 98.7 F Pulse Rate [Monito r] 105 Pulse Rate 62 Respiratory Rate 22 Blood Pressure [Le ft Arm] 151/83 Blood Pressure 122/64 Pulse Oximetry 95 Oxygen Delivery Me thod Nasal Cannula Oxygen Flow Rate 2 Fraction of Inspir ed Oxygen Hydration adequate: Yes Nausea and vomiting: No Pain level: 1 Mental status: Baseline
[2019-12-02] VITALS (7 sets, daily range): BP systolic 121–149; BP diastolic 72–89; PULSE 79–85; RESP 16–18; TEMP 36.5–36.9; O2SAT 86–96
[2019-12-02] MEDS: heparin 5,000 unit/mL INJ 1 mL 5000 UNIT SUBCUT ×2 (02:04→10:14)
[2019-12-02 02:39] LABS: Basophils % 0.5 %; Eosinophils # 0.1 10^3/uL (0.0-0.8); Eosinophils % 3.1 %; Hematocrit 37.3 % (37.0-47.0); Lymphocytes # 1.4 10^3/uL (0.8-4.8); Lymphocytes % 31.8 %; Mean Corpuscular HGB Conc 32.2 g/dL (30.0-36.0); Mean Corpuscular Hemoglobin 33.4 pg (28.0-34.0); Mean Corpuscular Volume 103.9 fL (81-99); Mean Platelet Volume 11.1 fL (7.4-10.4); Monocytes # 0.4 10^3/uL (0.2-0.9); Monocytes % 8.5 %; Neutrophils # 2.38 10^3/uL (1.8-7.7); Neutrophils % 55.9 %; Nucleated Red Blood Cells % 0 %; Platelet Count 174 10^3/cmm (130-400); Red Blood Count 3.59 10^6/uL (4.1-5.3); Red Cell Distribution Width 14.4 % (12.1-15.1); White Blood Count 4.3 10^3/uL (4.0-10.0)
[2019-12-02 03:17] LABS: Alanine Aminotransferase 11 U/L (0-33); Albumin Level 3.2 g/dL (3.5-5.2); Alkaline Phosphatase 71 IU/L (35-105); Anion Gap 13.8 (5-19); Aspartate Amino Transferase 13 U/L (0-32); Blood Urea Nitrogen 7 mg/dL (8-23); Calcium 8.7 mg/dL (8.5-10.5); Carbon Dioxide 24 mmol/L (22-29); Chloride 104 mmol/L (98-107); Globulin 2.8 g/dL (1.3-4.6); Glucose 85 mg/dL (65-115); Osmolality Calculated 283 mOsm/kg (285-295); Potassium 3.8 mmol/L (3.5-5.1); Sodium 138 mmol/L (136-145); Total Bilirubin 0.5 mg/dL (0.15-1.2)
[2019-12-02] MEDS: levoFLOXacin 500 mg Tablet PO (05:21)
--- NOTE | 2019-12-02 06:40 | PC.NURSE ---
SHIFT SUMMARY Had a good night. X3 stab surgical incisions all clean & dry. CLIF drain to RUQ with 6ml drainage this shift. Received po OXYIR X1 for pain this shift. Gets up to [facility] for voiding and had a large BM tonight. Ambulated in [place] with nurse and walker and ngoc well. Is hoping to go home today.
--- NOTE | 2019-12-02 06:52 | P.PN_ITS ---
Subjective Subjective: Interval history: The patient says her breathing is better. She would like to go home. She is passing flatus and tolerating an oral diet. Vitals/I&O/Wt Last Vital Signs Temp 98.4 F 12/02/19 04:00 Pulse 80 12/02/19 04:00 Resp 16 12/02/19 04:00 BP 121/72 12/02/19 04:00 Pulse Ox 93 12/02/19 04:00 12/01/19 12/01/19 12/02/19 14:59 22:59 06:59 Intake Total 1130 / 1790 360 / 1790 300 / 1790 Output Total 300 / 1806 1000 / 1806 506 / 1806 Balance 830 / -16 -640 / -16 -206 / -16 Physical Exam Narrative: EXAM NARRATIVE: Bowel sounds are present. The laparoscopic incisions look good. The patient has minimal serous fluid in the Johnny drain bulb this morning. Data : 12/02/19 02:15 12/02/19 02:15 Micro: Microbiology 11/29/19 14:15 Gram Stain - Final Gallbladder Fluid Anaerobic Culture - Preliminary Body Fluid Culture - Preliminary Klebsiella oxytoca A&P Assessment and plan (1) Acute cholecystitis: Status post cholecystectomy for acute cholecystitis on 11/29/2019. The patient's biliary culture is growing Klebsiella, pansensitive with the exception of ampicillin. She will need to be on oral antibiotics for another week or so. She is ready for discharge whenever okay with the hospitalist team. I am planning on leaving her Johnny drain in until I see her in the office as an outpatient next week. Status: Acute Attestations Medical Necessity Statement*: See admitting service's notation. Coding Level of Care Code Acute Exploration Geologist for Kevin Marcos Diagnoses Acute cholecystitis K81.0
--- NOTE | 2019-12-02 09:09 | PM.DCS ---
Discharge Providers Date of Admission: 11/29/19 00:16 Date of Discharge: December 02, 2019 Attending Provider at Admission: Silvia Foss MD Attending Provider at Discharge: Francisco Cosme MD Consults: Surgery: Dr. Brantley Primary Care Provider: Tasha Phillips APN Diagnoses at Discharge Discharge Diagnosis (1) Acute cholecystitis: Status: Acute (2) Sepsis: Status: Acute (3) Wheezing: Status: Acute (4) Hypoxia: Status: Acute (5) Hypertension: Status: Acute Qualifiers: Hypertension type: essential hypertension Qualified Code(s): I10 - Essential (primary) hypertension (6) Pulmonary hypertension: Status: Acute Reason for Visit Reason for Visit: ABD PAIN Hospital Course Discharge Summary: Patient Young Muir is a 64 year old female who has history of connective tissue disorder/scleroderma, restrictive lung disease, polycythemia, B12 deficiency, emphysema, pulmonary hypertension, chronic back pain came in today with 1 day history abdominal pain. Patient went to [facility] ER for evaluation of abdominal pain, she stating that her symptoms started 1 day ago with abdominal cramps which gradually got worse, she has been having subjective fevers, she experienced 3 episodes of emesis, abdominal pain is located in right upper quadrant area, she has not been able to eat anything in the last 24 hours. She is denying dysuria, diarrhea, endorsing constipation. She has not been exposed to any COVID patients. Diagnostics at the other facility revealed tachycardia, tachypnea, normal white count, she has been given normal saline, analgesics, liver ultrasound revealed cholelithiasis with cholecystitis, Dr. Brantley accepted the patient and asked hospital service to admit. On arrival patient was found to be in sepsis with tachycardia, tachypnea, fever, I have initiated Zosyn antibiotics, her pain is 10/10 right upper quadrant area, Dilaudid for analgesia, COVID antigen negative. Patient was admitted to the medical surgical floor and started on broad-spectrum antibiotics for sepsis. Source of sepsis is most likely because of cholecystitis which was confirmed via CT scan. Surgery was consulted. Patient underwent laparoscopic cholecystectomy for acute calculus cholecystitis. She tolerated the procedure well and her postoperative care was uncomplicated other than patient requiring minimal oxygen supplementation to keep saturations over 90%. Patient is a chronic smoker and uses inhalers on and off at home as well. Patient has been covered appropriately with antibiotics since admission. Patient's leukocytosis has resolved, and has remained afebrile for last 48 hours. It is believed patient's ongoing hypoxia is because of atelectasis, pulmonary hypertension and chronic smoking. Patient has been advised in detail regarding smoking cessation along with incentive spirometry to help with atelectasis. Home oxygen evaluation has been done prior to discharge. Intraoperative culture results showed patient growing Klebsiella from the gallbladder fluid. Patient is to be on Augmentin and levofloxacin for next 5 days to finish a course of antibiotics. She is to follow-up with Dr. Brantley within next 7 to 10 days for surgical follow-up. She is to follow-up with her primary care provider within next 1 to 2 weeks as well. Physical Exam Narrative: EXAM NARRATIVE: General: No acute distress, AO x3 HEENT: PERRLA, pupils bilaterally equal and reactive Chest: Normal vesicular breath sounds, no added sounds, equal good air entry bilaterally CVS: S1-S2 regular, no murmurs, no tachycardia, no gallops, no rubs Abdomen: Soft, nontender,, laparoscopic incision looks healthy, drain having serosanguineous fluid in bulb, no organomegaly, bowel sounds present Neuro: No focal deficits, no facial deformity, AO x3, power 5/5 in all limbs Discharge Data Data Completed and Pending: Completed Studies During Hospitalization Category Date Time Status CT abdomen pelvis wo/w [address]508 Routin e Cat Scan 11/29/19 08:33 Completed XR chest 1V arti ble [id number] Routine Exams 11/30/19 08:34 Completed Pending at discharge Category Date Time Status ES surgery / GI i mages Routine Exams 11/29/19 13:21 Taken Anaerobic Culture Routine Lab 11/29/19 14:15 Results Blood Culture Sta t Lab 11/29/19 05:11 Results Body Fluid Cultur e & GS Routine Lab 11/29/19 14:15 Results Pathology: Surgic al [PTH] Routine Pth 11/29/19 15:07 Received Labs from last 24 hours 12/02/19 12/02/19 02:15 02:15 WBC 4.3 RBC 3.59 L Hgb 12.0 Hct 37.3 MCV 103.9 H MCH 33.4 MCHC 32.2 RDW 14.4 Plt Count 174 MPV 11.1 H Neut % (Auto) 55.9 Lymph % (Auto) 31.8 [place] % (Auto) 8.5 Eos % (Auto) 3.1 Baso % (Auto) 0.5 Neut # (Auto) 2.38 Lymph # (Auto) 1.4 [place] # (Auto) 0.4 Eos # (Auto) 0.1 Baso # (Auto) 0.0 Nucleated RBC % (a uto) 0 Nucleated RBCs # 0.0 Sodium 138 Potassium 3.8 Chloride 104 Carbon Dioxide 24 Anion Gap 13.8 BUN 7 L Creatinine 0.6 GFR Calculation 101.0 Glucose 85 Calculated Osmolal ity 283 L Calcium 8.7 Total Bilirubin 0.5 AST 13 ALT 11 Alkaline Phosphata se 71 Total Protein 6.0 L Albumin 3.2 L Globulin 2.8 Vitals: Last Vital Signs Temp 97.7 F 12/02/19 07:28 Pulse 79 12/02/19 07:28 Resp 18 12/02/19 07:28 BP 130/87 12/02/19 07:28 Pulse Ox 96 12/02/19 07:28 Discharge Plan Discharge Patient Disposition: Home Condition: Stable Prescriptions: New sennosides-docusate sodium 8.6-50 mg Tablet 1 tab PO BID PRN (Reason: constipation) Qty: 10 RF: 0 levofloxacin 500 mg Tablet 500 mg PO DAILY@0600 Qty: 5 RF: 0 amoxicillin-pot clavulanate 875-125 mg Tablet 1 tab PO BID Qty: 10 RF: 0 Advair HFA 115-21 mcg/actuation HFA aerosol inhaler 2 puff INHALATION BID Qty: 12 RF: 0 Continued pantoprazole 40 mg tablet,delayed release (DR/EC) 40 mg PO DAILY Qty: 30 RF: 5 mycophenolate mofetil [CellCept] 500 mg tablet 500 mg PO BID Qty: 60 RF: 2 oxycodone 5 mg tablet 5 mg PO TID PRN (Reason: pain) 30 Days Qty: 90 RF: 0 baclofen 20 mg tablet 20 mg PO TID PRN (Reason: spasms) Qty: 90 RF: 1 albuterol sulfate [ProAir HFA] 90 mcg/actuation HFA aerosol inhaler 2 puff INHALATION Q6H PRN (Reason: shortness of breath) RF: 0 diclofenac sodium 1 % gel 2 gm TOPICAL .PRN RF: 0 amlodipine 2.5 mg tablet 2.5 mg PO DAILY Qty: 90 RF: 3 cholecalciferol (vitamin D3) 25 mcg (1,000 unit) capsule 25 mcg PO .3 day RF: 0 sildenafil (pulm.hypertension) 20 mg tablet 20 mg PO TID Qty: 90 RF: 3 macitentan 10 mg tablet 10 mg PO DAILY Qty: 30 RF: 3 ondansetron 4 mg tablet,disintegrating 4 mg PO Q6H PRN (Reason: nausea and vomiting) Qty: 28 RF: 0 Discontinued oxycodone 5 mg tablet 5 mg PO TID PRN (Reason: pain) 30 Days Qty: 90 RF: 0 Discharge Orders: Discharge Order (Routine); Ordered 12/02/19 Ordered By: Francisco Cosme Referrals: Tasha Phillips APN [Primary Care Provider] - 2 weeks Mohamud Brantley MD [Physician] - 7-10 days (Nursing: Please call Dr. Brantley's office ([phone]) and make an appointment for the patient to be seen next week.) Discharge Diet: Advance as tolerated Discharge Activity: Limit activity as instructed Activity Restrictions/Additional Instructions: 1. Empty Johnny drain as needed (nursing: Please instruct patient on how to empty Johnny drain and reconstitute bulb prior to discharge). No lifting over 20 pounds, no repetitive bending or twisting, no strenuous pushing / pulling or other heavy activity. Ambulate regularly. May go up and down steps if needed. Please continue to incentive spirometry as discussed in detail to avoid any further atelectasis or development of pneumonia. He will be on Augmentin levofloxacin for next 5 days to finish a course of antibiotics. Please follow-up with Dr. Brantley and your primary care provider on set appointments. Discharge Attestations Time Spent in Discharge Care*: greater than 30 min Specific Discharge Activities: Specific discharge activities: educating patient, discussing with pcp/other providers, discussing with director case/social workers/dc planners, documenting/other paperwork and evaluating patient/reviewing data Status at Discharge: Cognitive status at discharge: cognitively intact, Behavioral status at discharge: cooperative, Functional status at discharge: independent ambulation Overall status at discharge: patient is progressing back to baseline Quality Metrics Clinical Quality Measures During this hospital stay, did patient experience: None Coding Level of Care Code Acute Php Programmer for Chg Fwd Diagnoses Acute cholecystitis K81.0 Sepsis A41.9 Wheezing R06.2 Hypoxia R09.02 Hypertension I10 Hypertension type: essential hypertension Pulmonary hypertension I27.20
[2019-12-02] MEDS: amoxicillin-clav 875-125 mg Tablet 1 TAB PO (09:22)
[2019-12-02] MEDS: pantoprazole DR 40 mg Tablet PO (09:23)
== END 2019-12-02 14:30 | disposition home or self-care (01) | DRG 854 ==
LOC: ER 23:54 → MEDSURG 11-29 00:33
PROVIDERS: Emergency Medicine; Internal Medicine; Surgery; Admitting Provider Internal Medicine; PCP Nurse Practitioner; Visit Provider Student in an Organized Health Care Education/Training Program
PROC: 0FT44ZZ Resection of Gallbladder, Percutaneous Endoscopic Approach (ICD-10-PCS; CPT 47562; principal; 2019-11-29 13:40)
DX: A41.9 Sepsis, unspecified organism (principal); K80.00 Calculus of gallbladder with acute cholecystitis without obstruction; J98.11 Atelectasis; I71.4 Abdominal aortic aneurysm, without rupture; M34.9 Systemic sclerosis, unspecified; R09.02 Hypoxemia; Z79.891 Long term (current) use of opiate analgesic; I27.20 Pulmonary hypertension, unspecified; I10 Essential (primary) hypertension; G89.29 Other chronic pain; M54.9 Dorsalgia, unspecified; J43.9 Emphysema, unspecified; Z20.828 Contact with and (suspected) exposure to other viral communicable diseases; K21.9 Gastro-esophageal reflux disease without esophagitis; E78.5 Hyperlipidemia, unspecified; F17.210 Nicotine dependence, cigarettes, uncomplicated; K59.03 Drug induced constipation; T40.2X5A Adverse effect of other opioids, initial encounter; Y92.230 Patient room in hospital as the place of occurrence of the external cause
CPT/HCPCS: 12345; 36415; 71045; 74178; 80053; 81003; 83605; 85025; 85049; 85384; 85610; 85730; 86705; 86706; 86709; 86803; 87040; 87070; 87075; 87077; 87186; 87205; 87340; 87426; 88304; 96372; 96375; 99281; J0690; J1170; J1644; J1885; J2405; J2543; J2704; J2710; J3010; J3490; J7030; J7799; Q9967; S0030

== ENCOUNTER → 2019-12-08 12:39 | Outpatient (BNVA) | payer BC, SELFPAY | PROVIDERS: PCP Nurse Practitioner; Visit Provider Internal Medicine Rheumatology | DX: M34.9 Systemic sclerosis, unspecified (principal); I27.20 Pulmonary hypertension, unspecified; M53.9 Dorsopathy, unspecified; I71.4 Abdominal aortic aneurysm, without rupture; Z79.899 Other long term (current) drug therapy; F17.210 Nicotine dependence, cigarettes, uncomplicated | CPT/HCPCS: 99214 ==

== ENCOUNTER → 2019-12-24 10:29 | Outpatient (BNVA) | payer BC, SELFPAY | PROVIDERS: PCP Nurse Practitioner; Visit Provider Anesthesiology | DX: M51.17 Intervertebral disc disorders with radiculopathy, lumbosacral region (principal); M43.16 Spondylolisthesis, lumbar region; M48.062 Spinal stenosis, lumbar region with neurogenic claudication; M53.9 Dorsopathy, unspecified; Z79.891 Long term (current) use of opiate analgesic | CPT/HCPCS: 99213; 99214 ==

== ENCOUNTER → 2020-01-15 15:18 | Outpatient (BNVA) | payer MEDICARE, SELFPAY | PROVIDERS: PCP Nurse Practitioner; Visit Provider Surgery | DX: K62.5 Hemorrhage of anus and rectum (principal); K64.9 Unspecified hemorrhoids | CPT/HCPCS: 87635 ==

== ENCOUNTER 2020-01-19 07:53 | Day surgery (SDC) | payer MEDICARE, SELFPAY ==
[2020-01-16 12:52] VITALS: BMI 31.3
[2020-01-19 08:24] VITALS: BP 150/76; PULSE 84; RESP 18; TEMP 36.7; O2SAT 93
[2020-01-19] MEDS: sodium chloride 0.9% 1,000 ML 30 ML IV (08:52)
--- NOTE | 2020-01-19 08:54 | ANES.PREANE2 ---
Pre-Anesthetic Assessment Pre-Anesthetic Assessment: Height/Weight: Height 1.68 m Weight 87.997 kg Temp Pulse Resp BP Pulse Ox 98.1 F 84 18 150/76 93 01/19/20 08:24 01/19/20 08:24 01/19/20 08:24 01/19/20 08:24 01/19/20 08:24 Preop Diagnosis: Bleeding per rectum Proposed Procedure: Operation Date: 01/19/20 10:05 Proposed Procedures p Colonoscopy 48471 K64.9(Not Applicable) - Gregory Yee MD s Exam Under Anesthesia 42842(Not Applicable) - Gregory Yee MD s Hemorroidectomy 24647 K62.5(Not Applicable) - Gregory Yee MD Familial anesthetic complications: none Was Beta Praneeth taken within 24 hours: N/A Last intake: Intake Last Liquid Date 01/18/20 Last Liquid Time 22:30 Last Solid Date 01/17/20 Last Solid Time 20:00 Social: Social History: No alcohol and No tobacco Comment: former smoker Exam: Pre-Anes Outpt Exam: alert, oriented x 3, clear to auscultation bilaterally and regular rate & rhythm Airway: Cervical ROM: WNL MP: 3 Dentition: Full Pulmonary: Comments: pulm HTN on 2 L NC at home, COPD CV/HEM: CV/HEM: HTN Comments: AAA Musc/skanita: Comments: sclerosis/scleroderma on Mycophenylate, she says because of arthritis Neuropsych: Comments: chronic narcotics Anesthetic Plan: ASA status: 4 Anesthesia: General Risk of > 500 ml blood loss (7ml/kg in children): No PFSH Anesthesia PFSH: Medical History Abdominal aortic aneurysm Acute bilateral low back pain Arthrosis of right shoulder region B12 deficiency Cataract Chronic narcotic use Connective tissue disorder Diverticulosis Encounter for long-term opiate analgesic use GERD (gastroesophageal reflux disease) Hepatitis B surface antigen positive High risk medication use Hyperlipidemia Hypertension Immunization counseling Impingement syndrome of right shoulder Inflammatory arthritis Intervertebral disc disorders with radiculopathy, lumbosacral region Labral tear of shoulder, degenerative Lumbar stenosis with neurogenic claudication Multilevel degenerative disc disease Other instability, unspecified joint Polycythemia Pulmonary hypertension Restrictive lung disease Sclerodactyly Spondylolisthesis, lumbar region Systemic sclerosis Systemic sclerosis with limited cutaneous involvement Surgical History H/O: hysterectomy / BSO History of arthroplasty of knee Right History of carpal tunnel release Right History of cataract surgery Bilateral History of colonoscopy 12/2017 --diverticulosis S/P rotator cuff repair Right Vaginal laceration Repair 2012 Wound, open, finger Debridement and closure of wound right ring finger Family History Mother Bleeding disorder Aneurysm Father Cancer Denies family history of Rheumatoid arthritis Lupus Anesthesia complication Social History Smoking and tobacco status: former smoker Alcohol intake: never Lives independently: Yes Household members: children Current occupational status: disabled History of recent travel: No Current gender identity: Female Data Anesthesia Cardiac Studies: No Data to Display
--- NOTE | 2020-01-19 11:27 | W.PM.OPSUD ---
Surgery/Procedure H&P Update DATE OF PROCEDURE: January 19, 2020 DATE H&P PERFORMED: 12/25/19 H&P UPDATE INFORMATION: I have reviewed H&P completed within last 30 days, I have examined patient prior to procedure and No changes to prior documentation PREOP DIAGNOSIS: Bleeding per rectum PRIMARY INDICATION FOR PROCEDURE: The same PLANNED PROCEDURE: Operation Date: 01/19/20 10:05 Proposed Procedures p Colonoscopy 82251 K64.9(Not Applicable) - Gregory Yee MD s Exam Under Anesthesia 16948(Not Applicable) - Gregory Yee MD s Hemorroidectomy 56502 K62.5(Not Applicable) - Gregory Yee MD
[2020-01-19 11:57] VITALS: BP 81/50; PULSE 68; RESP 18; TEMP 36.3; O2SAT 97
[2020-01-19 12:07] VITALS: BP 107/64; PULSE 67; RESP 18; O2SAT 95
--- NOTE | 2020-01-19 14:14 | ANE.PACU2 ---
Inpatient post-anesthesia follow up: Airway intact: Yes Vital signs: Temperature 97.4 F Pulse Rate 67 Respiratory Rate 18 Blood Pressure 107/64 Pulse Oximetry 95 Oxygen Delivery Me thod Room Air Oxygen Flow Rate 4 Fraction of Inspir ed Oxygen Hydration adequate: Yes Nausea and vomiting: No Pain level: 1 Mental status: Baseline
== END 2020-01-19 12:15 | disposition home or self-care (01) ==
PROVIDERS: PCP Nurse Practitioner; Visit Provider Surgery
PROC: (CPT 45330; 2020-01-19 11:05)
PROC: 0DJD8ZZ Inspection of Lower Intestinal Tract, Via Natural or Artificial Opening Endoscopic (ICD-10-PCS; CPT 45330; 2020-01-19 11:05)
DX: K92.1 Melena (principal); K64.4 Residual hemorrhoidal skin tags; K21.9 Gastro-esophageal reflux disease without esophagitis; I10 Essential (primary) hypertension; I71.4 Abdominal aortic aneurysm, without rupture; J44.9 Chronic obstructive pulmonary disease, unspecified; E78.5 Hyperlipidemia, unspecified; D75.1 Secondary polycythemia; I27.20 Pulmonary hypertension, unspecified; Z79.891 Long term (current) use of opiate analgesic; Z99.81 Dependence on supplemental oxygen; Z87.891 Personal history of nicotine dependence; Z80.9 Family history of malignant neoplasm, unspecified; Z83.2 Family history of diseases of the blood and blood-forming organs and certain disorders involving the immune mechanism
CPT/HCPCS: 45330; 12345; 96365; J0131; J2704; J3010; J7030

== ENCOUNTER → 2020-03-02 13:40 | Outpatient (BNVA) | payer MEDICARE, SELFPAY | PROVIDERS: PCP Nurse Practitioner; Visit Provider Anesthesiology | DX: M43.16 Spondylolisthesis, lumbar region (principal); M53.9 Dorsopathy, unspecified; M48.062 Spinal stenosis, lumbar region with neurogenic claudication; M51.17 Intervertebral disc disorders with radiculopathy, lumbosacral region; F17.200 Nicotine dependence, unspecified, uncomplicated; Z79.891 Long term (current) use of opiate analgesic; M54.5 Low back pain; G89.29 Other chronic pain | CPT/HCPCS: 99214 ==

== ENCOUNTER → 2020-03-03 13:13 | Outpatient (BNVA) | payer MEDICARE, SELFPAY | PROVIDERS: PCP Nurse Practitioner; Visit Provider Surgery | DX: Z20.828 Contact with and (suspected) exposure to other viral communicable diseases (principal); K64.9 Unspecified hemorrhoids | CPT/HCPCS: 87635 ==

== ENCOUNTER 2020-03-09 05:38 | Day surgery (SDC) | payer MEDICARE, SELFPAY ==
[2020-03-08 15:33] VITALS: BMI 30.7
[2020-03-09 05:55] VITALS: BP 124/74; PULSE 79; RESP 18; TEMP 36.6; O2SAT 97
--- NOTE | 2020-03-09 06:16 | ANES.PREANE2 ---
Pre-Anesthetic Assessment Pre-Anesthetic Assessment: Height/Weight: Height 1.68 m Weight 86.183 kg Temp Pulse Resp BP Pulse Ox 97.9 F 79 18 124/74 97 03/09/20 05:55 03/09/20 05:55 03/09/20 05:55 03/09/20 05:55 03/09/20 05:55 Preop Diagnosis: Bleeding per rectum Proposed Procedure: Operation Date: 03/09/20 07:00 Proposed Procedures p Exam Under Anesthesia 29290 K62.5(Not Applicable) - Gregory Yee MD s Hemorroidectomy 25160(Not Applicable) - Gregory Yee MD Familial anesthetic complications: None Was Beta Praneeth taken within 24 hours: N/A Last intake: Intake Last Liquid Date 03/08/20 Last Solid Date 03/07/20 Social: Comment: former smoker Exam: Pre-Anes Outpt Exam: alert, oriented x 3, clear to auscultation bilaterally and regular rate & rhythm Airway: Cervical ROM: WNL MP: 3 Dentition: Other (no teeth) Pulmonary: Pulmonary: COPD Comments: Pulm HTN on 2 L NC CV/HEM: CV/HEM: HTN Comments: AAA Musc/skel: Comments: on mcyophenylate for arthritis Scerloderma Chronic narcotic use Anesthetic Plan: ASA status: 3 Anesthesia: General Risk of > 500 ml blood loss (7ml/kg in children): No PFSH Anesthesia PFSH: Medical History Abdominal aortic aneurysm Acute bilateral low back pain Arthrosis of right shoulder region B12 deficiency Cataract Chronic low back pain Chronic narcotic use Connective tissue disorder Diverticulosis Encounter for long-term opiate analgesic use GERD (gastroesophageal reflux disease) Hepatitis B surface antigen positive High risk medication use Hyperlipidemia Hypertension Immunization counseling Impingement syndrome of right shoulder Inflammatory arthritis Intervertebral disc disorders with radiculopathy, lumbosacral region Labral tear of shoulder, degenerative Lumbar stenosis with neurogenic claudication Multilevel degenerative disc disease Other instability, unspecified joint Polycythemia Pulmonary hypertension Restrictive lung disease Sclerodactyly Spondylolisthesis, lumbar region Systemic sclerosis Systemic sclerosis with limited cutaneous involvement Surgical History H/O: hysterectomy / BSO History of arthroplasty of knee Right History of carpal tunnel release Right History of cataract surgery Bilateral History of colonoscopy 12/2017 --diverticulosis S/P rotator cuff repair Right Vaginal laceration Repair 2012 Wound, open, finger Debridement and closure of wound right ring finger Family History Mother Bleeding disorder Aneurysm Father Cancer Denies family history of Rheumatoid arthritis Lupus Anesthesia complication Social History Smoking and tobacco status: former smoker Alcohol intake: never Lives independently: Yes Household members: children Current occupational status: disabled History of recent travel: No Current gender identity: Female Data Anesthesia Cardiac Studies: No Data to Display
--- NOTE | 2020-03-09 06:28 | W.PM.OPSFHP ---
Same Day Surgery H&P Indication for Procedure/HPI DATE OF PROCEDURE: March 09, 2020 CHIEF COMPLAINT/INDICATIONFOR SURGICAL PROCEDURE: Bleeding per rectum PREOP DIAGNOSIS: Bleeding per rectum PLANNED PROCEDRUE: Operation Date: 03/09/20 07:00 Proposed Procedures p Exam Under Anesthesia 17472 K62.5(Not Applicable) - Gregory Yee MD s Hemorroidectomy 85366(Not Applicable) - Gregory Yee MD This is a 64 years old female patient with history of bright red per rectum for the past 2 weeks. Patient denies history of colon cancer or nonintentional weight loss. Had a colonoscopy about 8 years ago and reports was within normal limits. Recently patient went to the emergency department and had a CT scan of the abdomen and pelvis that showed: Lungs: There is atelectasis or scar in the right lower lobe of the lung. Liver: Normal. No mass. Gallbladder and bile ducts: The inflammation extends to the gallbladder. However, no definite gallbladder wall thickening. There is a gallstone. Pancreas: Normal. No ductal dilation. Spleen: Normal. No splenomegaly. Adrenals: Normal. No mass. Kidneys and ureters: Normal. No hydronephrosis. Stomach and bowel: There is wall thickening of the ascending colon and hepatic flexure of the colon. No bowel obstruction. Appendix: The appendix is visualized and appears normal. Intraperitoneal space: Unremarkable. No free air. No significant fluid collection. Vasculature: Unremarkable. No abdominal aortic aneurysm. Lymph nodes: Unremarkable. No enlarged lymph nodes. Urinary bladder: Unremarkable as visualized. Reproductive: There has been a hysterectomy. Bones/joints: Degenerative change is identified in the spine. There is no evidence for acute fracture or malalignment. Soft tissues: Unremarkable. Patient presents today with referral for concern about hemorrhoidal disease and she reports that she never had surgeries before. Interim history 03/09/2020 Patient continues to have blood per rectum and an attempted colonoscopy was done but the prep was suboptimal and thus the procedure was aborted we will plan today for a colonoscopy with possible biopsy possible polypectomy with examination under anesthesia and possible hemorrhoidectomy ROS All systems have been reviewed negative except as per the above. Medications/Allergies* Home Medications Medication Instructions Recorded Confirmed Type albuterol sulfate 90 mcg/actuation 2 puff INHALATION Q6H PRN 03/12/19 03/08/20 History aerosol inhaler cholecalciferol (vitamin D3) 25 25 mcg PO .3 day cap 07/11/19 03/08/20 History mcg (1,000 unit) capsule famotidine 10 mg tablet 10 mg PO DAILY 12/08/19 03/08/20 History aspirin 81 mg PO DAILY 01/19/20 03/08/20 History macitentan [Opsumit] 10 mg PO DAILY 03/08/20 03/08/20 History Allergies/Adverse Reactions Allergy/AdvReac Type Severity Reaction Status Date / Time azithromycin Allergy Severe ALGY-Difficulty Verified 03/09/20 06:29 [From Zithromax Z-Merlin] Breathing prednisone Allergy Unknown Verified 03/09/20 06:29 codeine AdvReac Severe ADR-Headach Verified 03/09/20 06:29 e Pertinent History/Comorbid Conditions* Medical History (Updated 03/02/20 @ 14:11 by Jon Livingston MD) Abdominal aortic aneurysm Acute bilateral low back pain Arthrosis of right shoulder region B12 deficiency Cataract Chronic low back pain Chronic narcotic use Connective tissue disorder Diverticulosis Encounter for long-term opiate analgesic use GERD (gastroesophageal reflux disease) Hepatitis B surface antigen positive High risk medication use Hyperlipidemia Hypertension Immunization counseling Impingement syndrome of right shoulder Inflammatory arthritis Intervertebral disc disorders with radiculopathy, lumbosacral region Labral tear of shoulder, degenerative Lumbar stenosis with neurogenic claudication Multilevel degenerative disc disease Other instability, unspecified joint Polycythemia Pulmonary hypertension Restrictive lung disease Sclerodactyly Spondylolisthesis, lumbar region Systemic sclerosis Systemic sclerosis with limited cutaneous involvement Surgical History (Updated 11/29/19 @ 09:15 by Mohamud Brantley MD) H/O: hysterectomy / BSO History of arthroplasty of knee Right History of carpal tunnel release Right History of cataract surgery Bilateral History of colonoscopy 12/2017 --diverticulosis S/P rotator cuff repair Right Vaginal laceration Repair 2012 Wound, open, finger Debridement and closure of wound right ring finger Family History (Updated 12/25/19 @ 11:31 by Bela Ryan LPN) Aneurysm Mother Bleeding disorder Mother Cancer Father Denies family history of Rheumatoid arthritis Lupus Anesthesia complication Social History Smoking and tobacco status: former smoker Alcohol intake: never Lives independently: Yes Household members: children Current occupational status: disabled History of recent travel: No Current gender identity: Female Pertinent Exam Findings alert, oriented x 3, clear to auscultation bilaterally, regular rate & rhythm and procedure specific exam findings (Abdominal examination nontender nondistended soft/obese) Recommendations Surgery/Procedure today (Colonoscopy possible biopsy and possible polypectomy with examination under anesthesia and possible hemorrhoidectomy) Coding Level of Care Code Acute 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
[2020-03-09] MEDS: sodium chloride 0.9% 1,000 ML 30 ML IV (06:55)
--- NOTE | 2020-03-09 07:25 | PM.OP ---
Operative Report Date of procedure: March 09, 2020 Pre-op Diagnosis: Bleeding per rectum Post-op Diagnosis: External hemorrhoids with no signs of bleeding or complication Fair colon prep Post-op Findings: No abnormal colonoscopy findings Procedure Done: Colonoscopy with examination under anesthesia Surgeon: Gregory Yee Water Pump Operator: Jason Brooks Circulating nurse Nikki Anesthesia: MAC (Yoly Kay) Estimated blood loss (mL): 0 Condition: stable Disposition: same day Brief History: History of bleeding per rectum Full H&P per chart Procedure: Colonoscopy with examination under anesthesia Optimal colon prep External hemorrhoid Patient was identified in the holding area, was taken to the OR placed first in supine position time-out was done verifying the patient's name, date of , and procedure, all were in agreement, IV propofol was infused by the anesthesia provider, patient was placed in left lateral position. Perianal examination showed uncomplicated external hemorrhoids and without signs of bleeding or thromboses/chronic skin tags. Following that a digital rectal examination was done which was otherwise normal, the colonoscope was then introduced via the anus under direct visualization, all the way to the cecum, prep of the colon was fair, there were no polyps identified or masses or diverticular disease or strictures, the scope was then retrieved back ,time for withdrawal exceeded 6 minutes, gas was deflated on the way out. Retroflex was done at the end showing no evidence of masses or internal hemorrhoids Patient was repositioned to supine position. Patient tolerated the procedure well and was taken to the recovery area in stable condition. I was present for the whole entire procedure Recommendation to obtain a barium enema down the road as complementary study since the colon prep was fair and smaller polyps could have been missed. Otherwise colonoscopy should be repeated in 10 years unless otherwise specified
[2020-03-09 07:30] VITALS: BP 109/71; PULSE 70; RESP 16; TEMP 36.3; O2SAT 93
[2020-03-09 07:46] VITALS: BP 109/72; PULSE 71; RESP 16; O2SAT 94
[2020-03-09 08:00] VITALS: BP 111/67; PULSE 68; RESP 18; O2SAT 94
--- NOTE | 2020-03-09 18:57 | ANE.PACU2 ---
Inpatient post-anesthesia follow up: Airway intact: Yes Vital signs: Temperature 97.3 F Pulse Rate 68 Respiratory Rate 18 Blood Pressure 111/67 Pulse Oximetry 94 Oxygen Delivery Me thod Room Air Oxygen Flow Rate Fraction of Inspir ed Oxygen Hydration adequate: Yes Nausea and vomiting: No Pain level: 3 Mental status: Baseline
== END 2020-03-09 08:30 | disposition home or self-care (01) ==
PROVIDERS: PCP Nurse Practitioner; Visit Provider Surgery
PROC: (CPT 45378; principal; 2020-03-09 07:00)
PROC: 0DJD8ZZ Inspection of Lower Intestinal Tract, Via Natural or Artificial Opening Endoscopic (ICD-10-PCS; CPT 45378; 2020-03-09 07:00)
DX: K62.5 Hemorrhage of anus and rectum (principal); K64.4 Residual hemorrhoidal skin tags; Z87.891 Personal history of nicotine dependence; J44.9 Chronic obstructive pulmonary disease, unspecified; I27.20 Pulmonary hypertension, unspecified; Z99.81 Dependence on supplemental oxygen; I10 Essential (primary) hypertension; K21.9 Gastro-esophageal reflux disease without esophagitis; E78.5 Hyperlipidemia, unspecified
CPT/HCPCS: 45378; 12345; 96365; J0131; J2704; J3010; J7030

== ENCOUNTER → 2020-04-07 13:41 | Outpatient (BNVA) | payer MEDICARE, SELFPAY | PROVIDERS: PCP Nurse Practitioner; Visit Provider Internal Medicine Rheumatology | DX: M34.9 Systemic sclerosis, unspecified (principal); Z79.899 Other long term (current) drug therapy; I27.20 Pulmonary hypertension, unspecified; M47.896 Other spondylosis, lumbar region; K21.9 Gastro-esophageal reflux disease without esophagitis; R76.8 Other specified abnormal immunological findings in serum; Z87.891 Personal history of nicotine dependence | CPT/HCPCS: 99214 ==

== ENCOUNTER → 2020-05-18 13:01 | Outpatient (BNVA) | payer MEDICARE, SELFPAY | PROVIDERS: PCP Nurse Practitioner; Visit Provider Nurse Practitioner | DX: G89.29 Other chronic pain (principal); M51.17 Intervertebral disc disorders with radiculopathy, lumbosacral region; M48.062 Spinal stenosis, lumbar region with neurogenic claudication; M43.16 Spondylolisthesis, lumbar region; M53.9 Dorsopathy, unspecified; F17.200 Nicotine dependence, unspecified, uncomplicated; Z79.891 Long term (current) use of opiate analgesic; Z71.6 Tobacco abuse counseling | CPT/HCPCS: 99214 ==

== ENCOUNTER 2020-06-07 13:18 | Outpatient (CLI) | payer MEDICARE, SELFPAY ==
--- NOTE | 2020-06-07 13:45 | MR_ITS ---
WS: [id number] MRI LUMBAR SPINE NONCONTRAST TECHNIQUE: Sagittal T1, T2 and STIR imaging. Axial T1 and T2 imaging. CLINICAL INFORMATION: M54.5 - Low back pain COMPARISON: MRI August 2018 FINDINGS: Mild lumbar curve. No acute compression. No high-grade central canal stenosis. Slight retrolisthesis L2 on L3 and L3 on L4. L1-L2: Mild annular bulging with slight effacement of the ventral thecal sac. Spinal canal and forame n are patent. Mild facet arthropathy. L2-L3: Mild disc bulging with slight impingement left subarticular recess and traversing left L3 nerv e root. Recommend correlation left L3 nerve root symptoms. Foramen are patent. Moderate facet arthrop athy. L3-L4: Mild disc bulging with mild central canal stenosis. Slight impingement traversing L4 nerve ashley ts bilaterally. Mild left and no significant right foraminal narrowing. Moderate facet arthropathy. L4-L5: Mild disc bulging with mild central canal stenosis. Impingement traversing L5 nerve roots bila terally. Moderate facet arthropathy. Mild left and no significant right foraminal narrowing. L5-S1: Left eccentric disc osteophyte complex encroaches on the exiting left L5 nerve root laterally. Moderate left foraminal narrowing. Right foramen is patent. Moderate facet arthropathy. Spinal canal is patent. Small left renal cyst. Overall lumbar spine findings not significantly changed since 2018. Infrarenal abdominal aortic aneurysm with mural thrombus. Aneurysm measures approximately 3.1 x 3.3 c m. This is similar in appearance to the prior CT abdomen pelvis November 2019 MR/MR lumbar spine wo con* [id number] IMPRESSION: 1. Mild lumbar curve. No acute compression. No high-grade central canal stenos is. 2. Mild central canal stenosis L3-L4 and L4-L5 with impingement traversing L4 and L5 nerve roots bilaterally. 3. Small left subarticular protrusion L2-3 impinges the traversing left L3 ner ve root. 4. Left foraminal protrusion L3-4 slightly contacts the exiting left L3 nerve root. 5. Mild to moderate bilateral L4-5 and L5-S1 foraminal narrowing. 6. Moderate facet arthropathy L3-L5. 7. Infrarenal abdominal aortic aneurysm with mural thrombus. Aneurysm measures approximately 3.1 x 3.3 cm. This is similar in appearance to the prior CT abdo men pelvis November 2019
== END 2020-06-07 13:19 | disposition home or self-care (01) ==
LOC: RADSHAW 13:21
PROVIDERS: PCP Nurse Practitioner; Visit Provider Nurse Practitioner
DX: M48.061 Spinal stenosis, lumbar region without neurogenic claudication (principal); M51.26 Other intervertebral disc displacement, lumbar region; M47.816 Spondylosis without myelopathy or radiculopathy, lumbar region; I71.4 Abdominal aortic aneurysm, without rupture
CPT/HCPCS: 72148; 99214

== ENCOUNTER → 2020-07-20 12:54 | Outpatient (BNVA) | payer MEDICARE, SELFPAY | PROVIDERS: PCP Nurse Practitioner; Visit Provider Anesthesiology | DX: G89.29 Other chronic pain (principal); M51.17 Intervertebral disc disorders with radiculopathy, lumbosacral region; M48.062 Spinal stenosis, lumbar region with neurogenic claudication; M43.16 Spondylolisthesis, lumbar region; M53.9 Dorsopathy, unspecified; Z87.891 Personal history of nicotine dependence; Z79.899 Other long term (current) drug therapy; Z79.891 Long term (current) use of opiate analgesic | CPT/HCPCS: 99213 ==

== ENCOUNTER → 2020-07-28 13:27 | Outpatient (BNVA) | payer MEDICARE, SELFPAY | PROVIDERS: PCP Nurse Practitioner; Visit Provider Internal Medicine Rheumatology | DX: Z79.899 Other long term (current) drug therapy (principal) | CPT/HCPCS: 36415; 80076; 81401; 82565; 85025; 86140 ==

== ENCOUNTER → 2020-08-04 13:37 | Outpatient (BNVA) | payer MEDICARE, SELFPAY | PROVIDERS: PCP Nurse Practitioner; Visit Provider Internal Medicine Rheumatology | DX: M34.9 Systemic sclerosis, unspecified (principal); Z79.899 Other long term (current) drug therapy; M17.12 Unilateral primary osteoarthritis, left knee; M47.896 Other spondylosis, lumbar region; Z87.891 Personal history of nicotine dependence | CPT/HCPCS: 99214 ==

== ENCOUNTER → 2020-11-10 10:02 | Outpatient (BNVA) | payer MEDICARE, MEDICAID, SELFPAY | PROVIDERS: PCP Nurse Practitioner; Visit Provider Nurse Practitioner | DX: G89.29 Other chronic pain (principal); M51.17 Intervertebral disc disorders with radiculopathy, lumbosacral region; M43.16 Spondylolisthesis, lumbar region; M48.062 Spinal stenosis, lumbar region with neurogenic claudication; M17.12 Unilateral primary osteoarthritis, left knee; M75.41 Impingement syndrome of right shoulder; Z87.891 Personal history of nicotine dependence; Z79.891 Long term (current) use of opiate analgesic | CPT/HCPCS: 99214 ==

== ENCOUNTER → 2020-11-30 13:33 | Outpatient (BNVA) | payer MEDICARE, MEDICAID, SELFPAY | PROVIDERS: PCP Nurse Practitioner; Visit Provider Internal Medicine Rheumatology | DX: M17.12 Unilateral primary osteoarthritis, left knee (principal); Z71.89 Other specified counseling; Z79.899 Other long term (current) drug therapy | CPT/HCPCS: 36415; 80076; 82565; 85025; 86140 ==

== ENCOUNTER → 2020-12-07 12:42 | Outpatient (BNVA) | payer MEDICARE, MEDICAID, SELFPAY | PROVIDERS: PCP Nurse Practitioner; Visit Provider Internal Medicine Rheumatology | DX: M34.9 Systemic sclerosis, unspecified (principal); M17.12 Unilateral primary osteoarthritis, left knee; M47.896 Other spondylosis, lumbar region; M70.61 Trochanteric bursitis, right hip; M70.62 Trochanteric bursitis, left hip; Y93.9 Activity, unspecified; D72.819 Decreased white blood cell count, unspecified; Z79.899 Other long term (current) drug therapy; Z71.89 Other specified counseling; Z87.891 Personal history of nicotine dependence | CPT/HCPCS: 99214 ==

== ENCOUNTER 2020-12-13 15:33 | Outpatient (CLI) | payer MEDICARE, MEDICAID, SELFPAY ==
--- NOTE | 2020-12-13 16:45 | MR_ITS ---
WS: [id number] MRI LUMBAR SPINE NONCONTRAST HISTORY: M43.16 - Spondylolisthesis, lumbar region COMPARISON: 06/07/2020 TECHNIQUE: Sagittal and axial multisequence imaging is submitted. Thoracolumbar scoliosis with moderate cervical spondylosis. Mild narrowing of the central cervical ca nal is similar to the prior examination. Degenerative spondylitic changes throughout the thoracic spi ne. Mild RIGHT curvature of the lumbar spine. 4 mm retrolisthesis of L3 in 2 mm retrolisthesis of L2 and L4. No acute marrow edema or fracture. Disc spaces are moderately narrowed throughout the lumbar spine with moderate size endplate osteophyt es. Conus terminates normally at L1-2 disc level. L1-L2: Moderate annular disc bulging with fissures in the disc centrally. Mild ligamentum flavum hype rtrophy and facet arthritis. No stenosis. L2-L3: Diffuse annular disc bulging with a moderate LEFT paracentral disc protrusion encroaching upon the traversing L3 nerve root. Very similar to the prior examination with only mild LEFT subarticular recess narrowing. Moderate ligamentum flavum hypertrophy and mild facet arthritis. L3-L4: Diffuse annular disc bulging with moderate ligamentum flavum hypertrophy and facet arthritis. Mild central and bilateral subarticular recess stenosis. Similar to the prior examination. Mild LEFT foraminal stenosis. L4-L5: Moderate annular disc bulging with moderate ligamentum flavum hypertrophy and facet arthritis. Diffuse osteophytic ridging. Mild central and bilateral subarticular recess stenosis with encroachme nt upon the traversing L5 nerve roots bilaterally. Very similar to the prior examination. There is al so mild bilateral foraminal narrowing due to disc and osteophyte and facet disease. L5-S1: Mild annular disc bulging asymmetric to the LEFT. Asymmetric disc bulging is contacting the ex iting LEFT L5 nerve root. Very mild encroachment upon the S1 nerve roots bilaterally but no displacem ent. Mild bilateral subarticular recess stenosis with moderate LEFT foraminal and mild RIGHT foramina l stenosis. Similar to the prior study. 3.4 x 3.1 cm infrarenal aortic aneurysm. There is a moderate amount of circumferential thrombus. 7 mm cortical cyst lower pole LEFT kidney. MR/MR lumbar spine wo con* [id number] IMPRESSION: 1. Advanced spondylitic changes in areas of stenosis throughout the lumbar spi ne. Very similar as compared to 06/07/2020 without significant progression. 2. Mild central and bilateral subarticular recess and LEFT foraminal stenosis at L3-4. 3. Mild central and bilateral subarticular recess stenosis at L4-5 with disc e ncroachment upon the traversing L5 nerve roots bilaterally. 4. Mild bilateral foraminal narrowing at L4-5. 5. Asymmetric disc bulging at L5-S1 contacting the exiting L5 nerve root causi ng moderate LEFT foraminal and mild RIGHT foraminal stenosis. 6. Stable LEFT paracentral disc protrusion at L2-3 contacting the traversing L3 nerve root. Resulting in mild LEFT subarticular recess stenosis. 7. Stable infrarenal abdominal aortic aneurysm at 3.4 x 3.1 cm.
== END 2020-12-13 15:34 | disposition home or self-care (01) ==
LOC: RADSHAW 15:41
PROVIDERS: PCP Nurse Practitioner; Visit Provider Nurse Practitioner
DX: M43.16 Spondylolisthesis, lumbar region (principal); M48.062 Spinal stenosis, lumbar region with neurogenic claudication; M51.17 Intervertebral disc disorders with radiculopathy, lumbosacral region; I71.4 Abdominal aortic aneurysm, without rupture; M51.26 Other intervertebral disc displacement, lumbar region; M51.27 Other intervertebral disc displacement, lumbosacral region; M48.061 Spinal stenosis, lumbar region without neurogenic claudication
CPT/HCPCS: 72148

== ENCOUNTER → 2021-01-05 10:19 | Outpatient (BNVA) | payer MEDICARE, MEDICAID, SELFPAY | PROVIDERS: PCP Nurse Practitioner; Visit Provider Anesthesiology | DX: G89.29 Other chronic pain (principal); M48.062 Spinal stenosis, lumbar region with neurogenic claudication; M43.16 Spondylolisthesis, lumbar region; M51.17 Intervertebral disc disorders with radiculopathy, lumbosacral region; M53.9 Dorsopathy, unspecified; Z79.891 Long term (current) use of opiate analgesic; Z79.899 Other long term (current) drug therapy; Z87.891 Personal history of nicotine dependence | CPT/HCPCS: 99213 ==

== ENCOUNTER 2021-02-07 07:29 | Outpatient (CLI) | payer MEDICARE, MEDICAID, SELFPAY ==
--- NOTE | 2021-02-07 08:00 | USCV_ITS ---
Jenna Muir Age: 65 Gender: F : 1955 Exam Date: 02/07/2021 07:59 Ordering Phys: Markos Anderson MD ([email or web address]) Technologist: LESLIE [place] [facility] [place] AAA HISTORY: Diameter (cm) AP x Transverse x Length Velocity (cm/s) Waveform Prox Aorta: 2.39 x 2.76 x 27.30 Mid Aorta: 3.59 x 3.48 x 30.50 Distal Aorta: 2.90 x 3.04 x 13.90 Right Iliac Prox: 0.71 x 1.04 x 169.50 Left Iliac Prox: 0.71 x 1.04 x 169.10 Stent Prox Landing x x Aneurysmal Sac Max x x Lt Lat Sac Dim Rt Lat Sac Dim Stent Dist Landing x x Right Iliac Stent x x Left Iliac Stent x x Right Renal Art Left Renal Art FINDINGS: Fusiform dilatation of the mid abdominal aorta Mild diffuse plaques in the abdominal aorta Normal dimensions of the proximal common iliac arteries. CONCLUSIONS 1. Small fusiform aneurysm of the mid abdominal aorta measuring 3.59 x 3.48 cm. 2. Normal proximal common iliac artery dimensions. 3. No evidence of any significant stenosis in the aorta or jn the proximal common iliac arteries, based on flow velocity measurements Dr Markos Anderson MD [facility] (Electronically Signed) Final Date: 07 February 2021 19:17 S
== END 2021-02-07 07:30 | disposition home or self-care (01) ==
LOC: RAD 07:33
PROVIDERS: PCP Nurse Practitioner; Visit Provider Internal Medicine Cardiovascular Disease
DX: I71.4 Abdominal aortic aneurysm, without rupture (principal)
CPT/HCPCS: 93978

== ENCOUNTER → 2021-03-09 08:40 | Outpatient (BNVA) | payer MEDICARE, MEDICAID, SELFPAY | PROVIDERS: PCP Nurse Practitioner; Visit Provider Anesthesiology | DX: G89.29 Other chronic pain (principal); M43.16 Spondylolisthesis, lumbar region; M53.9 Dorsopathy, unspecified; M48.062 Spinal stenosis, lumbar region with neurogenic claudication; M51.17 Intervertebral disc disorders with radiculopathy, lumbosacral region; Z79.891 Long term (current) use of opiate analgesic; Z79.899 Other long term (current) drug therapy; Z87.891 Personal history of nicotine dependence | CPT/HCPCS: 99213; 99214 ==

== ENCOUNTER → 2021-03-24 08:57 | Outpatient (BNVA) | payer MEDICARE, MEDICAID, SELFPAY | PROVIDERS: PCP Nurse Practitioner; Referring Provider Anesthesiology; Visit Provider Physician Assistant | DX: G89.29 Other chronic pain (principal); M54.50 Low back pain, unspecified | CPT/HCPCS: 72110; 73523 ==

== ENCOUNTER → 2021-04-06 09:13 | Outpatient (BNVA) | payer MEDICARE, MEDICAID, SELFPAY | PROVIDERS: PCP Nurse Practitioner; Visit Provider Anesthesiology | DX: M51.37 Other intervertebral disc degeneration, lumbosacral region (principal); M79.604 Pain in right leg; Z79.891 Long term (current) use of opiate analgesic; Z87.891 Personal history of nicotine dependence | CPT/HCPCS: 99213 ==

== ENCOUNTER → 2021-04-14 13:41 | Outpatient (BNVA) | payer MEDICARE, MEDICAID, SELFPAY | PROVIDERS: PCP Nurse Practitioner; Referring Provider Physician Assistant; Visit Provider Anesthesiology Pain Medicine | DX: M51.37 Other intervertebral disc degeneration, lumbosacral region (principal); M48.062 Spinal stenosis, lumbar region with neurogenic claudication; M43.16 Spondylolisthesis, lumbar region; M51.17 Intervertebral disc disorders with radiculopathy, lumbosacral region; M79.604 Pain in right leg; M79.605 Pain in left leg; M16.0 Bilateral primary osteoarthritis of hip; M17.12 Unilateral primary osteoarthritis, left knee; Z79.891 Long term (current) use of opiate analgesic; Z87.891 Personal history of nicotine dependence | CPT/HCPCS: 99205 ==

== ENCOUNTER → 2021-05-10 12:48 | Outpatient (BNVA) | payer MEDICARE, MEDICAID, SELFPAY | PROVIDERS: PCP Nurse Practitioner; Visit Provider Anesthesiology Pain Medicine | DX: M79.604 Pain in right leg (principal); M79.605 Pain in left leg; Z87.891 Personal history of nicotine dependence; Z79.891 Long term (current) use of opiate analgesic | CPT/HCPCS: 64493; 64494; 64495; J3490 ==

== ENCOUNTER → 2021-05-17 15:00 | Outpatient (BNVA) | payer MEDICARE, MEDICAID, SELFPAY | PROVIDERS: PCP Nurse Practitioner; Visit Provider Internal Medicine Cardiovascular Disease | DX: I71.4 Abdominal aortic aneurysm, without rupture (principal); E78.2 Mixed hyperlipidemia; I10 Essential (primary) hypertension | CPT/HCPCS: 99214 ==

== ENCOUNTER 2021-05-19 00:27 | Inpatient (IN) | payer MEDICARE, MEDICAID, SELFPAY ==
[2021-05-19] VITALS (16 sets, daily range): BP systolic 102–147; BP diastolic 64–83; PULSE 90–99; RESP 16–28; TEMP 36.6–36.8; O2SAT 84–94; BMI 28.3
--- NOTE | 2021-05-19 02:02 | P.HP_ITS ---
Providers/Chief Complaint Admitting Physician: Jules Lennon Primary Care Provider: Tasha Phillips APN History of Present Illness 56-year-old lady with history of COPD, restrictive lung disease, pulmonary hype rtension, on chronic 3 L of oxygen nasal cannula, systemic sclerosis and a number of additional medical conditions as per PMH, is transferred from outside facility where she presented after episodes of nausea and vomiting which were attributed to her recently being started on Levaquin after she presented to her primary provider with respiratory symptoms with shortness of breath, productive cough. She reportedly had influenza back in March. At [facility] where she came from she tested positive for COVID-19. Requiring 5 L nasal cannula she was transferred here for additional management. Reports she has been having cough productive of white sputum for over 2 weeks. Has not been getting better. She has been having episodes of vomiting, nausea. Denies diarrhea. Mild right periumbilical abdominal discomfort. Reports vomiting clear liquid. She follows with rheumatology. I see prescription for diclofenac dated 05/09/2021. She denies being on chronic steroid, although does appear had a steroid taper at the end of April. At [facility] was assessed by troponin series, troponin CT baseline 21, 2-hour 20, upper normal less than 10. Noted leukopenia, WBC 2.8, hemoglobin 12.2, platelets 142. Absolute neutrophils 2100. Sodium 135, chloride 95, calcium 8.5, total protein 6.4, albumin 3.1. Liver parameters unremarkable. Lipase normal. Lactic acid 1.6. Influenza antigen not detected. She received Zofran and 1 L fluid bolus. Of note for fear of hypotension, blood pressure down as low as 79/86 noted in paperwork after she arrived. Systolic blood pressure arrival here 107. Chest x-ray at outside facility with diminished lung volumes with chronic appearing mild accentuated interstitial lung markings. No consolidating pneumonia, large pleural effusion or pneumothorax. Cardiac silhouette unremarkable. Review of Systems Const: Reports: fatigue; Denies: fever(s), chills, body aches or malaise Eyes: Denies: change in vision or eye redness ENMT: Denies: throat pain, oral sores or ear or mastoid pain Card: Denies: chest pain, edema, pre-syncope or dyspnea on exertion Resp: Reports: dyspnea and productive cough; Denies: change in phlegm color or hemoptysis GI: Reports: abdominal pain (mild periumbilical R side), nausea and vomiting; Denies: diarrhea, constipation, hematochezia or melena : Denies: flank pain, urinary frequency or hematuria Musc: Denies: back pain, joint swelling or joint redness Skin/Breast: Denies: rash, sores or new lesions Neuro: Denies: headache(s), numbness in extremities, weakness in extremities, dizziness, confusion or seizure-like activity Endo: Denies: polyuria or polydipsia Raghu/Lymph: Denies: easy bleeding or purpura All/Imm: Denies: urticaria, throat swelling or tongue swelling Medications/Allergies Home Medications Medication Instructions Recorded Confirmed Last Taken Type cholecalciferol (vitamin D3) 25 25 mcg PO .3 day cap 07/11/19 05/17/21 03/05/20 History mcg (1,000 unit) capsule sennosides 8.6 mg-docusate sodium 1 tab PO BID PRN #10 tab 12/02/19 05/17/21 01/17/20 Rx 50 mg tablet famotidine 10 mg tablet 10 mg PO DAILY 12/08/19 05/17/21 03/08/20 History aspirin 81 mg tablet 81 mg PO DAILY 01/19/20 05/17/21 03/05/20 History ambrisentan 10 mg tablet 10 mg PO DAILY tab 05/18/20 05/17/21 Unknown History fenofibrate 54 mg tablet 54 mg PO DAILY tab 05/18/20 05/17/21 Unknown History amlodipine 2.5 mg tablet 2.5 mg PO DAILY #90 tab 06/28/20 05/17/21 Unknown Rx macitentan 10 mg tablet (Opsumit) 10 mg PO DAILY #30 tab 12/31/20 05/17/21 Unknown Rx albuterol sulfate 90 mcg/actuation 2 puff INHALATION Q4H PRN g 03/09/21 05/17/21 Unknown History aerosol inhaler cetirizine 10 mg tablet (All Day 10 mg PO ONCE PRN tab 03/09/21 05/17/21 Unknown History Allergy (cetirizine)) fluticasone propionate 115 2 puff INHALATION BID 03/09/21 05/17/21 Unknown History mcg-salmeterol 21 mcg/actuation HFA inhaler (Advair HFA) omeprazole 20 mg capsule,delayed 20 mg PO DAILY 03/09/21 05/17/21 Unknown History release ondansetron HCl 4 mg tablet 4 mg PO Q6H PRN 03/09/21 05/17/21 Unknown History (Zofran) baclofen 20 mg tablet 20 mg PO TID PRN #90 tab 04/06/21 05/17/21 Unknown Rx oxycodone 5 mg tablet 5 mg PO QID PRN 30 Days #120 tab 04/06/21 05/17/21 Unknown Rx oxycodone 5 mg tablet 5 mg PO QID PRN 30 Days #120 tab 04/06/21 05/17/21 Unknown Rx diclofenac sodium 75 mg 75 mg PO BID PRN #60 tab 05/09/21 05/17/21 Unknown Rx tablet,delayed release Allergies Allergy/AdvReac Type Severity Reaction Status Date / Time azithromycin Allergy Severe ALGY-Difficulty Verified 05/17/21 15:14 [From Zithromax Z-Merlin] Breathing prednisone Allergy Severe pt said Verified 05/17/21 15:14 sent her to hospital, forgot symptoms mycophenolate mofetil Allergy constipatio Verified 05/17/21 15:14 [From CellCept] n codeine AdvReac Severe ADR-Headach Verified 05/17/21 15:14 e PFSH Acute PFSH: Medical History Abdominal aortic aneurysm Acute bilateral low back pain Arthrosis of right shoulder region B12 deficiency Cataract Chronic low back pain Chronic narcotic use Connective tissue disorder Diverticulosis Encounter for long-term opiate analgesic use GERD (gastroesophageal reflux disease) Hepatitis B surface antigen positive High risk medication use Hyperlipidemia Hypertension Immunization counseling Impingement syndrome of right shoulder Inflammatory arthritis Intervertebral disc disorders with radiculopathy, lumbosacral region Labral tear of shoulder, degenerative Lumbar stenosis with neurogenic claudication Multilevel degenerative disc disease Osteoarthritis of left knee Other instability, unspecified joint Polycythemia Pulmonary hypertension Restrictive lung disease Sclerodactyly Spondylolisthesis, lumbar region Systemic sclerosis Systemic sclerosis with limited cutaneous involvement Surgical History H/O: hysterectomy / BSO History of arthroplasty of knee Right History of carpal tunnel release Right History of cataract surgery Bilateral History of colonoscopy 12/2017 --diverticulosis Hx of cholecystectomy 12/2019 [facility] [place] rotator cuff repair Right Vaginal laceration Repair 2012 Wound, open, finger Debridement and closure of wound right ring finger Family History Mother Bleeding disorder Aneurysm CAD (coronary artery disease) Father Cancer Family/Other Stephanie Gehrig disease Denies family history of Rheumatoid arthritis Diabetes Lupus Clotting disorder Dementia Chronic kidney disease (CKD) Suicide Anesthesia complication Lung disease Stroke Social History (Updated 05/19/21 @ 02:09 by Jules Lennon MD) Smoking and tobacco status: current every day smoker cigarettes Number of cigarettes per day: 1-5 Second hand smoke exposure: No Alcohol intake: never Lives independently: Yes Household members: children Current occupational status: disabled History of recent travel: No Current gender identity: Female Physical Exam Const: COMMON NORMALS: no acute distress and patient oriented x3 HENMT: COMMON NORMALS: oropharynx normal Neck/C-Spine: COMMON NORMALS: no JVD Resp: AUSCULTATION: rhonchi, wheezes and diminished lung sounds OTHER: Coughing Cardio: COMMON NORMALS: no JVD, regular rhythm, S1 normal heart sound present, S2 normal heart sound present and No murmurs present (Cardio) RHYTHM: regular rhythm HEART SOUNDS: S1 normal heart sound present and S2 normal heart sound present GI: COMMON NORMALS: Normal to inspection, nondistended, normoactive bowel sounds present, Soft to palpation and non-tender PALPATION: Yes Soft to palpation Extremity: COMMON NORMALS: no joint enlargement GENERAL: Yes edema (trace) Neuro: COMMON NORMALS: patient oriented x3 and moves all extremities Skin: COMMON NORMALS: no rashes or lesions noted GENERAL SKIN EXAM: no rashes or lesions noted A&P Assessment and plan (1) COVID-19: Oxygen support, continues on nasal cannula for now. Discussed with her additional treatments for severe COVID-19 with Decadron, remdesivir, will also empirically cover with antibiotics given protracted illness, productive cough. Leukopenia. Nebs, antitussives. Flutter valve. Prophylactic Lovenox. Assess D-dimer, CRP. Attempted to call her son to discuss and for update, but could not reach him on the phone number listed. Status: Acute (2) COPD exacerbation: Severe COPD distribution with productive cough purulent appearing sputum, no count change, hypoxia acute on chronic requiring 5 L nasal cannula oxygen, usually on 3 L. Collect urine cultures. Was on Levaquin, but her nausea and vomiting were attributed to Levaquin at the outside facility. Would not continue for now. Continue with ceftriaxone and doxycycline p.o. for now. Decadron. Breathing treatments. Status: Acute (3) Nausea & vomiting: Antalgic reason, but likely may be due to COVID-19 and soft, otherwise also appears to have had a prescription for diclofenac tablets recently. Possibly N SAID induced gastritis. Start PPI 40 mg IV. Zofran as needed for nausea. Clear liquids for now. Status: Acute (4) Leukopenia: Likely secondary COVID-19, follow blood counts. Status: Acute (5) Hypotension: Episode of hypotension noted at outside facility. Received 1 L fluid bolus, appears to responded. Not on chronic steroids, but appears to have frequent steroid tapers. Check serum cortisol. He is currently on Decadron as above. Status: Acute Plan Underlying pulmonary hypertension Restrictive lung disease Systemic sclerosis Attestations Medical Necessity Statement*: Admission of over 2 midnights is anticipated for assessment of management of acute on chronic hypoxia with severe COVID-19 and severe COPD exacerbation with a lady with underlying systemic sclerosis. Coding Level of Care Code Acute Brake Lining Curer for Kevin Fwd Exam Comprehensive Diagnoses COVID-19 U07.1 COPD exacerbation J44.1 Nausea & vomiting R11.2 Leukopenia D72.819 Hypotension I95.9
[2021-05-19] MEDS: pantoprazole 40 mg SDV IVP (03:04)
[2021-05-19] MEDS: dexamethasone 10 mg/mL INJ 6 MG IVP ×2 (03:04→10:20)
[2021-05-19] MEDS: enoxaparin 40 mg/0.4 mL Syringe SUBCUT (03:04)
[2021-05-19] MEDS: cefTRIAXone 1,000 MG in sodium chloride 0.9% (plus) 50 ML 100 MG IV (03:05)
[2021-05-19] MEDS: benzonatate 100 mg Capsule 200 MG PO (03:06)
[2021-05-19] MEDS: doxycycline 100 MG in sodium chloride 0.9% (plus) 100 ML IV ×2 (04:13→19:45)
[2021-05-19] MEDS: ipratropium-albuterol 3 mL Neb INHALATION ×5 (04:16→20:45)
[2021-05-19 05:26] LABS: Basophils % 0.3 %; Hematocrit 36.4 % (37.0-47.0); Hemoglobin 11.6 g/dL (11.5-15.3); Lymphocytes # 0.4 10^3/uL (0.8-4.8); Mean Corpuscular HGB Conc 31.9 g/dL (30.0-36.0); Mean Corpuscular Hemoglobin 35.3 pg (28.0-34.0); Mean Corpuscular Volume 110.6 fl (81-99); Mean Platelet Volume 10.1 fL (7.4-10.4); Monocytes # 0.1 10^3/uL (0.2-0.9); Monocytes % 3.7 %; Neutrophils # 2.62 10^3/uL (1.8-7.7); Neutrophils % 81.4 %; Nucleated Red Blood Cells % 0.6 %; Platelet Count 162 10^3/cmm (130-400); Red Blood Count 3.29 10^6/uL (4.1-5.3); Red Cell Distribution Width 14.6 % (12.1-15.1); White Blood Count 3.2 10^3/uL (4.0-10.0)
[2021-05-19 05:45] LABS: D Dimer 1.31 ug/mIFEU (0-0.59)
[2021-05-19 05:56] LABS: Alanine Aminotransferase 12 U/L (0-33); Albumin Level 2.8 g/dL (3.5-5.2); Alkaline Phosphatase 76 IU/L (35-105); Anion Gap 13.7 (5-19); Aspartate Amino Transferase 23 U/L (0-32); Blood Urea Nitrogen 14 mg/dL (8-23); C Reactive Protein 38.7 mg/L (0.0-4.9); Calcium 7.9 mg/dL (8.5-10.5); Carbon Dioxide 27 mmol/L (22-29); Chloride 100 mmol/L (98-107); Globulin 2.8 g/dL (1.3-4.6); Glomerular Filtration Rate 123.8 mL/min (90-130); Glucose 94 mg/dL (65-115); Osmolality Calculated 284 mOsm/kg (285-295); Potassium 3.7 mmol/L (3.5-5.1); Sodium 137 mmol/L (136-145); Total Bilirubin 0.3 mg/dL (0.15-1.2); Total Protein 5.6 g/dL (6.6-8.7)
[2021-05-19 05:57] LABS: Cortisol Random 20.34 ug/dL (2.47-19.5)
--- NOTE | 2021-05-19 10:25 | PC.CHAP ---
Pastoral Care Encounter/Spiritual Assessment Type of Contact [] Declined market risk specialist visit [] Patient/Family/Request visit [] Outpatient visit [] Follow-up visit [] Physician referral [] Code/Alert [] Routine visit [] Staff referral [] Actively dying [] Patient sleeping [] Family support [] [] Out of room [] Palliative care [] [] Receiving care in room [] Pre-surgical visit [] Trauma [] Long length of stay [] ICU visit [x] Other: covid Relational/Emotional Strength [] Patient feels connected with others/family/visitors/staff [] Distress [] Loneliness/isolation [] Abandonment Spirituality of Patient [] Person of Flores [] Attends Baptism of their Flores [] Believes in Prayer [] Reads Bible or Mormonism materials [] There are Spiritual issues to be addressed Freight Separator Interventions [] Prayer [] Active listening [] Non-anxious presence [] Spiritual/emotional support [] Crisis/trauma care [] Spiritual counseling [] Bereavement support [] Provided bereavement packet [] Provided Bible/devotional materials [] Provided toy/stuffed animal, coloring book to patient or family member [] Provided Communion [] Anointing/[place] [] Salvation [] Completed spiritual assessment [] Other: Impact on Illness or Injury [] Angry [] Fearful [] Anxious [] Often cries [] Exhaustion [] Unable to work [] Unable to attend confucianist [] Unable to walk/stand [] Unable to read [] Unable to drive [] Unable to eat/drink [] Unable to sleep [] Unable to be with family [] Patient intubated [] Other: Summary covid Time spent with patient 5 mins
[2021-05-19 11:53] LABS: ABG PCO2 43.4 mmHg (35-45); ABG PH Result 7.43 (7.35-7.45); Alveolar-Arterial Oxygen Gradi 5.6 mmHg (5-10); Arterial Blood Gas Hematocrit 36.7 % (37-47); Base Excess ABG 3.9 mmol/L (-2.0-2.0); Blood Gas Allen Test Pos; Blood Gas Operator Identificat MONRO; Blood Gas Sample Site Radial, right; Blood Gas Sample Type Arterial; Carboxyhemoglobin 0.8 %THgb (0.4-20.1); HCO3 ABG 28.8 mmol/L (22-26); HGB O2 Sat 86.3 % (95-100); Ionized Calcium Level - ABG 1.1 mmol/L (1.1-1.4); Methemoglobin 0.7 % (0.4-1.5); Oxygen Device OXY MASK; Oxygen Saturation ABG 87.7; PO2 ABG 52.7 mmHg (80.0-100.0); Potassium Level - ABG 3.5 mmol/L (3.5-5.0)
[2021-05-20] VITALS (16 sets, daily range): BP systolic 114–148; BP diastolic 68–90; PULSE 80–105; RESP 16–22; TEMP 36.4–37.1; O2SAT 89–99
[2021-05-20] MEDS: trazodone 50 mg Tablet 25 MG PO (01:19)
[2021-05-20] MEDS: cefTRIAXone 1,000 MG in sodium chloride 0.9% (plus) 50 ML 100 MG IV (02:45)
[2021-05-20] MEDS: enoxaparin 40 mg/0.4 mL Syringe SUBCUT (02:46)
[2021-05-20] MEDS: pantoprazole 40 mg SDV IVP (03:06)
[2021-05-20] MEDS: ipratropium-albuterol 3 mL Neb INHALATION ×4 (03:07→21:04)
[2021-05-20] MEDS: doxycycline 100 MG in sodium chloride 0.9% (plus) 100 ML IV ×2 (03:42→15:40)
[2021-05-20 05:59] LABS: Basophils % 0.3 %; Hematocrit 39.4 % (37.0-47.0); Hemoglobin 12.4 g/dL (11.5-15.3); Lymphocytes # 0.6 10^3/uL (0.8-4.8); Lymphocytes % 18.8 %; Mean Corpuscular HGB Conc 31.5 g/dL (30.0-36.0); Mean Corpuscular Hemoglobin 35.9 pg (28.0-34.0); Mean Corpuscular Volume 114.2 fl (81-99); Mean Platelet Volume 10.6 fL (7.4-10.4); Monocytes # 0.1 10^3/uL (0.2-0.9); Monocytes % 4.1 %; Neutrophils # 2.53 10^3/uL (1.8-7.7); Neutrophils % 74.4 %; Nucleated Red Blood Cells % 1.2 %; Platelet Count 148 10^3/cmm (130-400); Red Blood Count 3.45 10^6/uL (4.1-5.3); Red Cell Distribution Width 15.1 % (12.1-15.1); White Blood Count 3.4 10^3/uL (4.0-10.0)
[2021-05-20 06:23] LABS: Slide Review Slide Review Perform
[2021-05-20 06:27] LABS: Alanine Aminotransferase 15 U/L (0-33); Albumin Level 2.9 g/dL (3.5-5.2); Alkaline Phosphatase 78 IU/L (35-105); Blood Urea Nitrogen 12 mg/dL (8-23); Calcium 8.1 mg/dL (8.5-10.5); Carbon Dioxide 25 mmol/L (22-29); Chloride 97 mmol/L (98-107); Globulin 3.1 g/dL (1.3-4.6); Glomerular Filtration Rate 160.2 mL/min (90-130); Glucose 84 mg/dL (65-115); Osmolality Calculated 277 mOsm/kg (285-295); Sodium 134 mmol/L (136-145); Total Bilirubin 0.3 mg/dL (0.15-1.2)
[2021-05-20 06:28] LABS: Anion Gap 15.5 (5-19); Aspartate Amino Transferase 30 U/L (0-32); Potassium 3.5 mmol/L (3.5-5.1)
[2021-05-20] MEDS: dexamethasone 10 mg/mL INJ 6 MG IVP (08:06)
--- NOTE | 2021-05-20 09:13 | P.PN_ITS ---
Subjective Subjective: Still on significant O2. Still has SOB, cough. Denies N/V, CP. Afebrile Vitals/I&O/Wt Last Vital Signs Temp 98.0 F 05/21/21 07:27 Pulse 98 05/21/21 08:53 Resp 24 H 05/21/21 08:38 BP 132/87 05/21/21 07:27 Pulse Ox 88 L 05/21/21 08:38 05/20/21 05/21/21 05/21/21 22:59 06:59 14:59 Intake Total 540 / 840 800 / 1640 Output Total 1200 / 1800 Balance 540 / 240 -400 / -160 Weight last 48 hrs Weight 91.036 kg Weight 92.731 kg Physical Exam Narrative: NAD CVS:S1S2, RRR, Mur(-) Resp: Decreased BS basally, Coarse throughout Abd: soft, NT, BS+, HSM (-) Edema (-) PROFESSIONAL SECURITY OFFICER A&Ox4 Data : 05/21/21 05:42 05/21/21 05:42 Micro: Microbiology 05/20/21 18:12 C.difficile Toxin B Gene (PCR) - Final Stool - Stool Aspirate A&P Assessment and plan (1) Acute respiratory failure with hypoxia and hypercapnia: still neeing O2 mask Status: Acute (2) COVID-19: Day # 4 Status: Acute (3) COPD exacerbation: Status: Acute (4) Leukopenia: Status: Acute (5) Hypotension: improved Status: Acute (6) Nausea & vomiting: resolved Status: Acute (7) DDD (degenerative disc disease), lumbosacral: Status: Acute (8) Osteoarthritis, hip, bilateral: Status: Acute Plan Continue O2 supplement Continue steroid, Abx DVT Prophylaxis Resp/Infec Isolation Attestations Medical Necessity Statement*: Has Ac Resp Failure due to COVID 19 infection and Ac COPD. Still on significant O2 supplement. Needs continue hospitalization Time Spent in Patient Care: 40 min Coding Level of Care Code Acute Architectural Draftsperson for [facility] Fwd Diagnoses Acute respiratory failure with hypoxia and hypercapnia J96.01; J96.02 COVID-19 U07.1 COPD exacerbation J44.1 Leukopenia D72.819 Hypotension I95.9 Nausea & vomiting R11.2 DDD (degenerative disc disease), lumbosacral M51.37 Osteoarthritis, hip, bilateral M16.0
[2021-05-21] VITALS (18 sets, daily range): BP systolic 129–147; BP diastolic 67–89; PULSE 77–112; RESP 16–30; TEMP 36.4–36.9; O2SAT 88–96
[2021-05-21] MEDS: trazodone 50 mg Tablet 25 MG PO (00:10)
[2021-05-21] MEDS: enoxaparin 40 mg/0.4 mL Syringe SUBCUT (02:21)
[2021-05-21] MEDS: ipratropium-albuterol 3 mL Neb INHALATION ×5 (03:11→20:36)
[2021-05-21 06:00] LABS: Basophils % 0.5 %; Hematocrit 42.9 % (37.0-47.0); Hemoglobin 14.3 g/dL (11.5-15.3); Lymphocytes # 0.5 10^3/uL (0.8-4.8); Lymphocytes % 23.8 %; Mean Corpuscular HGB Conc 33.3 g/dL (30.0-36.0); Mean Corpuscular Hemoglobin 35.8 pg (28.0-34.0); Mean Corpuscular Volume 107.5 fl (81-99); Mean Platelet Volume 10.9 fL (7.4-10.4); Monocytes # 0.1 10^3/uL (0.2-0.9); Monocytes % 4.8 %; Neutrophils # 1.39 10^3/uL (1.8-7.7); Neutrophils % 66.1 %; Nucleated Red Blood Cells % 1.4 %; Platelet Count 131 10^3/cmm (130-400); Red Blood Count 3.99 10^6/uL (4.1-5.3); Red Cell Distribution Width 14.8 % (12.1-15.1); White Blood Count 2.1 10^3/uL (4.0-10.0)
[2021-05-21 06:11] LABS: Slide Review Slide Review Perform
[2021-05-21 06:16] LABS: Alanine Aminotransferase 15 U/L (0-33); Albumin Level 3.4 g/dL (3.5-5.2); Alkaline Phosphatase 86 IU/L (35-105); Blood Urea Nitrogen 11 mg/dL (8-23); Calcium 8.5 mg/dL (8.5-10.5); Carbon Dioxide 28 mmol/L (22-29); Chloride 94 mmol/L (98-107); Globulin 2.7 g/dL (1.3-4.6); Glomerular Filtration Rate 223.3 mL/min (90-130); Glucose 70 mg/dL (65-115); Osmolality Calculated 278 mOsm/kg (285-295); Sodium 135 mmol/L (136-145); Total Bilirubin 0.5 mg/dL (0.15-1.2); Total Protein 6.1 g/dL (6.6-8.7)
[2021-05-21 06:17] LABS: Anion Gap 16.3 (5-19); Potassium 3.3 mmol/L (3.5-5.1)
[2021-05-21 06:18] LABS: Aspartate Amino Transferase 31 U/L (0-32)
--- NOTE | 2021-05-21 08:56 | P.PN_ITS ---
Vitals/I&O/Wt Last Vital Signs Temp 98.0 F 05/21/21 07:27 Pulse 98 05/21/21 08:53 Resp 24 H 05/21/21 08:38 BP 132/87 05/21/21 07:27 Pulse Ox 88 L 05/21/21 08:38 05/20/21 05/21/21 05/21/21 22:59 06:59 14:59 Intake Total 540 / 840 800 / 1640 Output Total 1200 / 1800 Balance 540 / 240 -400 / -160 Weight last 48 hrs Weight 91.036 kg Weight 92.731 kg Physical Exam Narrative: NAD CVS:S1S2, RRR, Mur(-)Resp: Decreased BS basally, Slightlt course throughout but less than yesterday Abd: soft, NT, BS+, HSM (-) Edema (-) CHIEF ENGINEER A&Ox4 Data : 05/21/21 05:42 05/21/21 05:42 Micro: Microbiology 05/20/21 18:12 C.difficile Toxin B Gene (PCR) - Final Stool - Stool Aspirate A&P Assessment and plan (1) COVID-19: Day #4 post infection. Symp improving Status: Acute (2) COPD exacerbation: slowly improving. Less SOB Status: Acute (3) Leukopenia: due to COVID 19 Status: Acute (4) Acute respiratory failure with hypoxia and hypercapnia: Needing less O2 Status: Acute (5) DDD (degenerative disc disease), lumbosacral: stable Status: Acute (6) Hypotension: better Status: Acute (7) Nausea & vomiting: resolved Status: Acute (8) Osteoarthritis, hip, bilateral: Status: Acute Plan Change IV meds to PO D/C Rocephin F/U CXR Continue Isolation and all resp precaution DVT Prophylaxis on Lovenox Attestations Medical Necessity Statement*: Has Ac Resp Failure due to COVID 19 infection and Ac COPD. Still on significant O2 supplement. Needs continue hospitalization Time Spent in Patient Care: 40 min Coding Level of Care Code Acute Wireline Field Operator for Chg Fwd Diagnoses COVID-19 U07.1 COPD exacerbation J44.1 Leukopenia D72.819 Acute respiratory failure with hypoxia and hypercapnia J96.01; J96.02 DDD (degenerative disc disease), lumbosacral M51.37 Hypotension I95.9 Nausea & vomiting R11.2 Osteoarthritis, hip, bilateral M16.0
[2021-05-21] MEDS: pantoprazole DR 40 mg Tablet PO (09:16)
[2021-05-21] MEDS: doxycycline 100 mg Tablet PO ×2 (09:16→17:13)
[2021-05-21] MEDS: dexamethasone 4 mg Tablet 3 MG PO ×2 (09:17→17:13)
--- NOTE | 2021-05-21 10:39 | ECG_ITS ---
[facility] Test Date: 2021-05-21 Pat Name: Jenna Muir Department: Room: 258 Gender: Female Executive Marketing Assistant: : 1955 Requested By: Mikael Irby Order Number: [id number] Evelia MD: Markos [facility] M.D. Measurements Intervals [place] Rate: 111 P: 72 [place]: 129 QRS: 113 QRSD: 86 T: 31 QT: 325 QTc: 442 Interpretive Statements SINUS TACHYCARDIA POSSIBLE RIGHT VENTRICULAR HYPERTROPHY [SOME/ALL OF: PROMINENT R IN V1, LATE TRANSITION, RAD, NORMA, SSS] MODERATE ST DEPRESSION [0.05+ mV ST DEPRESSION] No previous ECG available for comparison Electronically Signed On 05-22-2021 17:24:05 CDT by Markos [facility] M.D. [email or web address] [email or web address]. dominic hospitalOpendiscveterans health administration.Extole/store/OM/[id number]
--- NOTE | 2021-05-21 10:43 | ECG_ITS ---
[facility] Test Date: 2021-05-21 Pat Name: Jenna Muir Department: Room: 258 Gender: Female Shed Boss: : 1955 Requested By: Mikael Irby Order Number: [id number] Evelia MD: Markos [facility] M.D. Measurements Intervals [place] Rate: 104 P: 58 [place]: 128 QRS: 105 QRSD: 85 T: 71 QT: 337 QTc: 444 Interpretive Statements SINUS TACHYCARDIA WITH OCCASIONAL ECTOPIC PREMATURE COMPLEXES POSSIBLE LEFT ATRIAL ENLARGEMENT [-0.1mV P WAVE IN V1/V2] POSSIBLE RIGHT VENTRICULAR HYPERTROPHY [SOME/ALL OF: PROMINENT R IN V1, LATE TRANSITION, RAD, NORMA, SSS] MODERATE ST DEPRESSION [0.05+ mV ST DEPRESSION] Compared to ECG 05/21/2021 10:48:19 No significant changes Electronically Signed On 05-22-2021 17:24:13 CDT by Markos [facility] M.D. [email or web address] Path [facility] Solutionscent[facility].GazeHawk/store/OM/[id number]
--- NOTE | 2021-05-21 12:43 | ECG_ITS ---
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 Measurements Intervals [place] Rate: 106 P: 62 [place]: 122 QRS: 97 QRSD: 98 T: 57 QT: 343 QTc: 455 Interpretive Statements SINUS TACHYCARDIA POSSIBLE LEFT ATRIAL ENLARGEMENT [-0.1mV P WAVE IN V1/V2] BORDERLINE RIGHT AXIS DEVIATION [QRS AXIS > 90] ABNORMAL RHYTHM ECG Compared to ECG 05/21/2021 10:49:29 ST (T wave) deviation no longer present Electronically Signed On 05-22-2021 17:42:49 CDT by Markos [facility] M.D. [email or web address].ePark SystemsSwatchcloudcleveland clinic [facility].Mofang/store/OM/[id number]
[2021-05-21 12:54] LABS: Basophils % 0.5 %; Hematocrit 41.6 % (37.0-47.0); Hemoglobin 13.5 g/dL (11.5-15.3); Lymphocytes # 0.3 10^3/uL (0.8-4.8); Lymphocytes % 14.2 %; Mean Corpuscular HGB Conc 32.5 g/dL (30.0-36.0); Mean Corpuscular Hemoglobin 35.6 pg (28.0-34.0); Mean Corpuscular Volume 109.8 fl (81-99); Mean Platelet Volume 10.8 fL (7.4-10.4); Monocytes # 0.1 10^3/uL (0.2-0.9); Monocytes % 5.1 %; Neutrophils # 1.51 10^3/uL (1.8-7.7); Neutrophils % 76.6 %; Nucleated Red Blood Cells % 1.5 %; Platelet Count 155 10^3/cmm (130-400); Red Blood Count 3.79 10^6/uL (4.1-5.3); Red Cell Distribution Width 14.7 % (12.1-15.1)
[2021-05-21 13:18] LABS: Troponin(5th) Baseline 25 ng/L (0-10)
[2021-05-21 13:22] LABS: Alanine Aminotransferase 14 U/L (0-33); Alkaline Phosphatase 81 IU/L (35-105); Aspartate Amino Transferase 32 U/L (0-32); Blood Urea Nitrogen 12 mg/dL (8-23); Calcium 8.2 mg/dL (8.5-10.5); Carbon Dioxide 25 mmol/L (22-29); Chloride 94 mmol/L (98-107); Globulin 3.5 g/dL (1.3-4.6); Glomerular Filtration Rate 223.3 mL/min (90-130); Glucose 81 mg/dL (65-115); Osmolality Calculated 277 mOsm/kg (285-295); Sodium 134 mmol/L (136-145); Total Bilirubin 0.5 mg/dL (0.15-1.2); Total Protein 6.5 g/dL (6.6-8.7)
[2021-05-21 15:00] LABS: Troponin 5 2HR 25.53 ng/L (0-10)
[2021-05-21 15:04] LABS: Troponin 5 2HR Delta 0.53 ABS# (0-10)
--- NOTE | 2021-05-21 16:43 | ECG_ITS ---
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 Measurements Intervals [place] Rate: 105 P: 66 [place]: 119 QRS: 113 QRSD: 92 T: 51 QT: 336 QTc: 445 Interpretive Statements SINUS TACHYCARDIA WITH SHORT [place] INTERVAL POSSIBLE RIGHT VENTRICULAR HYPERTROPHY [SOME/ALL OF: PROMINENT R IN V1, LATE TRANSITION, RAD, NORMA, SSS] MINIMAL ST DEPRESSION [0.025+ mV ST DEPRESSION] Compared to ECG 05/21/2021 12:33:03 Short [place] interval now present ST (T wave) deviation now present Electronically Signed On 05-22-2021 17:43:56 CDT by Markos [facility] M.D. [email or web address] Materialsheal[facility].RiverWired/store/[id number]
--- NOTE | 2021-05-21 18:10 | PC.NURSE ---
Patient increased confusion throughout shift, removing oxi-mask and trying to get out of bed. Oriented to self and place only. Multiple trips to BSC with loose stools and voiding. Patient concerned not enough urine coming out. Bladder scanned patient and showed residual charted in EMR. Continuing to monitor urine retention, no kirkland needed at this time. Increased rounding on patient, bed bath completed during shift. WIll report to oncoming nurse.
[2021-05-21 19:58] LABS: Troponin 5 6HR 25.27 ng/L (0-10)
[2021-05-21 20:08] LABS: Troponin 5 6HR Delta 0.27 ng/L (0-12)
[2021-05-22] VITALS (13 sets, daily range): BP systolic 122–153; BP diastolic 77–84; PULSE 83–96; RESP 17–24; TEMP 36.3–36.8; O2SAT 89–98
[2021-05-22] MEDS: enoxaparin 40 mg/0.4 mL Syringe SUBCUT (02:49)
--- NOTE | 2021-05-22 03:05 | PC.NURSE ---
PATIENT UP TO BEDSIDE COMMODE WITH ASSIST AT THIS TIME. PATIENT TOLERATED ACTIVITY WELL. NO COMPLAINTS OF DISCOMFORT. CONTINENT AND VOIDED 300ML OF DARK JEFRY URINE. REPOSITIONED BACK IN BED. OXYGEN SAT 90% ON 15L OXYMASK WITH ACTIVITY.
[2021-05-22] MEDS: ipratropium-albuterol 3 mL Neb INHALATION ×4 (03:14→21:57)
[2021-05-22 06:22] LABS: Hematocrit 36.9 % (37.0-47.0); Hemoglobin 12.1 g/dL (11.5-15.3); Lymphocytes # 0.4 10^3/uL (0.8-4.8); Lymphocytes % 27.5 %; Mean Corpuscular HGB Conc 32.8 g/dL (30.0-36.0); Mean Corpuscular Hemoglobin 35.8 pg (28.0-34.0); Mean Corpuscular Volume 109.2 fl (81-99); Mean Platelet Volume 10.7 fL (7.4-10.4); Monocytes # 0.1 10^3/uL (0.2-0.9); Neutrophils % 62.7 %; Nucleated Red Blood Cells % 2.1 %; Platelet Count 140 10^3/cmm (130-400); Red Blood Count 3.38 10^6/uL (4.1-5.3); Red Cell Distribution Width 14.7 % (12.1-15.1); White Blood Count 1.4 10^3/uL (4.0-10.0)
[2021-05-22 06:32] LABS: Alanine Aminotransferase 13 U/L (0-33); Albumin Level 2.8 g/dL (3.5-5.2); Alkaline Phosphatase 70 IU/L (35-105); Anion Gap 10.7 (5-19); Aspartate Amino Transferase 29 U/L (0-32); Blood Urea Nitrogen 13 mg/dL (8-23); Calcium 8.2 mg/dL (8.5-10.5); Carbon Dioxide 28 mmol/L (22-29); Chloride 94 mmol/L (98-107); Glomerular Filtration Rate 223.3 mL/min (90-130); Glucose 90 mg/dL (65-115); Osmolality Calculated 270 mOsm/kg (285-295); Sodium 130 mmol/L (136-145); Total Bilirubin 0.4 mg/dL (0.15-1.2); Total Protein 5.8 g/dL (6.6-8.7)
[2021-05-22 07:15] LABS: Potassium 2.7 mmol/L (3.5-5.1)
[2021-05-22 07:17] LABS: Slide Review Slide Review Perform
[2021-05-22 07:18] LABS: Neutrophils # 0.89 10^3/uL (1.8-7.7)
[2021-05-22] MEDS: doxycycline 100 mg Tablet PO ×2 (08:58→17:55)
[2021-05-22] MEDS: dexamethasone 4 mg Tablet 3 MG PO ×2 (08:58→17:55)
[2021-05-22] MEDS: pantoprazole DR 40 mg Tablet PO (08:58)
--- NOTE | 2021-05-22 11:44 | PC.SOCIAL ---
IMM update IMM updated with patient's son. Verbalized an understanding. Initialled, dated, timed, and placed in chart.
--- NOTE | 2021-05-22 14:23 | P.PN_ITS ---
Subjective Subjective: Had some CP last night. ECG showed sinus tachy and delta Troponin normal. Today she is doing much better. Breathing comfortably on humidified O2. Denied CP. Not appearing confused Vitals/I&O/Wt Last Vital Signs Temp 97.6 F 05/22/21 12:00 Pulse 89 05/22/21 12:00 Resp 17 05/22/21 12:00 BP 122/77 05/22/21 12:00 Pulse Ox 94 05/22/21 12:00 05/21/21 05/22/21 05/22/21 22:59 06:59 14:59 Intake Total 360 / 360 1200 / 1200 Output Total 700 / 700 300 / 1000 Balance -340 / -340 -300 / -640 1200 / 1200 Weight last 48 hrs Weight 90.52 kg Weight 91.036 kg Physical Exam Narrative: NAD CVS:S1S2, RRR, Mur(-)Resp: Decreased BS basally, Slightlt course throughout but less than yesterday Abd: soft, NT, BS+, HSM (-) Edema (-) CUSTOMER ACCOUNT SPECIALIST A&Ox4 Data : 05/22/21 05:55 05/22/21 05:55 Micro: Microbiology 05/21/21 02:20 Gram Stain - Final Sputum - Expectorated Sputum Sputum Culture - Preliminary Yeast A&P Assessment and plan (1) Hypokalemia: K 2.7 Status: Acute (2) Chest pain: May be atypical but could also be Angina Status: Acute (3) Acute respiratory failure with hypoxia and hypercapnia: On humidified O2. Slow response Status: Acute (4) COVID-19: on decadron, doxycycline Status: Acute (5) COPD exacerbation: Worsened by COVID inf Status: Acute (6) Leukopenia: Status: Acute (7) DDD (degenerative disc disease), lumbosacral: Status: Acute Plan KCl 40 mEq tid x4 d F/U K, Mg Continue Decadron, Doxy On Lovenox, Protonix Resp Isolation continue Attestations Medical Necessity Statement*: Pt persisting Ac Resp Failure, COVID 19 infec, Ac COPD,, hypokalemia, CP needs continued hospitalization in isolation Time Spent in Patient Care: 40 min Coding Level of Care Code Acute Foot Setter for [facility] F[facility] Diagnoses Hypokalemia E87.6 Chest pain R07.9 Acute respiratory failure with hypoxia and hypercapnia J96.01; J96.02 COVID-19 U07.1 COPD exacerbation J44.1 Leukopenia D72.819 DDD (degenerative disc disease), lumbosacral M51.37
[2021-05-22] MEDS: potassium chloride ER 20 mEq Tablet 40 MEQ PO ×2 (15:12→20:45)
[2021-05-22] MEDS: trazodone 50 mg Tablet 25 MG PO (20:44)
[2021-05-23] VITALS (24 sets, daily range): BP systolic 119–155; BP diastolic 73–97; PULSE 85–107; RESP 16–30; TEMP 36.6–37.2; O2SAT 88–96; BMI 26.9
[2021-05-23] MEDS: enoxaparin 40 mg/0.4 mL Syringe SUBCUT (02:59)
[2021-05-23] MEDS: ipratropium-albuterol 3 mL Neb INHALATION ×4 (03:28→20:06)
[2021-05-23] MEDS: doxycycline 100 mg Tablet PO (08:50)
[2021-05-23] MEDS: dexamethasone 4 mg Tablet 3 MG PO ×2 (08:50→17:42)
[2021-05-23] MEDS: pantoprazole DR 40 mg Tablet PO (08:51)
[2021-05-23] MEDS: potassium chloride ER 20 mEq Tablet 40 MEQ PO ×3 (08:55→20:47)
--- NOTE | 2021-05-23 12:51 | PM.PN ---
Subjective Subjective: On 15 L oxygen mask patient's O2 saturation was 88 to 90%, asked RT to switch her to high flow Patient was adamant that she wants to leave, I did try to explain her she is at high risk and with her current oxygen requirement she is at risk of worsening hypoxemia, and at risk of if she tries to leave AMA I have tried to call her son 3 times, could not get a hold of him, voicemail not set up Vitals/I&O/Wt Last Vital Signs Temp 98 F 05/23/21 04:00 Pulse 101 H 05/23/21 10:24 Resp 24 H 05/23/21 10:24 BP 132/76 05/23/21 08:00 Pulse Ox 96 05/23/21 10:24 05/22/21 05/23/21 05/23/21 22:59 06:59 14:59 Output Total 200 / 200 400 / 600 Balance -200 / 1000 -400 / 600 Weight last 48 hrs Weight 90.038 kg Weight 90.52 kg Physical Exam Narrative: Patient was experiencing dry cough She was pleasant and cooperative however adamant that she wants to go home Asked RT to put her on high flow Looks euvolemic Looks dehydrated Abdomen soft S1, S2 Appropriate mood and affect Data : 05/22/21 05:55 05/22/21 05:55 Micro: Microbiology 05/21/21 02:20 Gram Stain - Final Sputum - Expectorated Sputum Sputum Culture - Preliminary Yeast A&P Assessment and plan (1) COVID-19: Status: Acute (2) COPD exacerbation: Status: Acute (3) Chest pain: Status: Acute (4) Systemic sclerosis with limited cutaneous involvement: Status: Acute (5) Hypoxia: Status: Acute (6) Wheezing: Status: Acute Plan COVID-19 related COPD exacerbation Asked RT to switch her from OxiMax to high flow She is not ready to be discharged at all Try to get in touch with her family, could not get a hold I have tried 3 times She is adamant that she wants to go home Continue Decadron Currently on Lovenox 40 mg daily DuoNeb every 4 as needed Check procalcitonin, she has been afebrile Gentle hydration as she is getting dehydrated Currently on clear liquid diet Flutter valve incentive spirometry at the bedside With the present dextromethorphan for cough Attestations Medical Necessity Statement*: COVID-19 related hypoxia, continue hospitalization Time Spent in Patient Care: 20min Coding Level of Care Code Acute Cardroom Plastic Card Grader for Chg Fwd Diagnoses COVID-19 U07.1 COPD exacerbation J44.1 Chest pain R07.9 Systemic sclerosis with limited cutaneous involvement M34.9 Hypoxia R09.02 Wheezing R06.2
[2021-05-23] MEDS: levoFLOXacin 750 mg Tablet PO (15:10)
--- NOTE | 2021-05-23 15:59 | XRR_ITS ---
PROCEDURE INFORMATION: Exam: XR Chest Exam date and time: 05/23/2021 4:11 PM Age: 66 years old Clinical indication: Other: Hypoxia TECHNIQUE: Imaging protocol: XR of the chest. Views: 1 view. COMPARISON: CR XR chest 1V portable [id number] 11/30/2019 2:24 PM FINDINGS: Lungs: Ill-defined opacities at the right lung base and left mid and lower lung. Pleural spaces: Trace right pleural effusion. No pneumothorax. Heart/Mediastinum: Mild cardiomegaly. Bones/joints: Visualized osseous structures are intact. XR/XR chest 1V portable [id number] IMPRESSION: Ill-defined opacities at the right lung base and left mid and lower lung suspicious for multifocal pneumonia. Trace right pleural effusion.
--- NOTE | 2021-05-23 16:46 | PC.NURSE ---
Addendum entered by Belinda Victor RN 05/23/21 17:28: The only belongings pt has is top and bottom dentures. Redness was noted to buttocks Original Note: Transferred to ICU at 1630. Pt was placed on HHF at 80% and is A&Ox4.
[2021-05-23] MEDS: morphine 4 mg/mL SDV 1 mL 2 MG IVP (17:48)
[2021-05-23] MEDS: sodium chlor 0.9% + KCl 40 mEq 40 MEQ/1,000 ML BAG 75 MEQ IV (17:54)
[2021-05-24] VITALS (154 sets, daily range): BP systolic 135–163; BP diastolic 79–113; PULSE 80–110; RESP 16–50; TEMP 36.7–37.1; O2SAT 85–97
[2021-05-24] MEDS: acetaminophen 325 mg Tablet 650 MG PO (01:44)
[2021-05-24] MEDS: enoxaparin 40 mg/0.4 mL Syringe SUBCUT (02:06)
[2021-05-24] MEDS: ipratropium-albuterol 3 mL Neb INHALATION ×4 (03:20→19:59)
[2021-05-24 05:31] LABS: Hematocrit 39.2 % (37.0-47.0); Hemoglobin 12.5 g/dL (11.5-15.3); Lymphocytes # 0.5 10^3/uL (0.8-4.8); Lymphocytes % 16.7 %; Mean Corpuscular HGB Conc 31.9 g/dL (30.0-36.0); Mean Corpuscular Hemoglobin 35.5 pg (28.0-34.0); Mean Corpuscular Volume 111.4 fl (81-99); Mean Platelet Volume 10.3 fL (7.4-10.4); Monocytes # 0.1 10^3/uL (0.2-0.9); Monocytes % 3.1 %; Neutrophils # 2.27 10^3/uL (1.8-7.7); Neutrophils % 78.8 %; Nucleated Red Blood Cells % 0.7 %; Platelet Count 143 10^3/cmm (130-400); Red Blood Count 3.52 10^6/uL (4.1-5.3); Red Cell Distribution Width 15.3 % (12.1-15.1); White Blood Count 2.9 10^3/uL (4.0-10.0)
[2021-05-24] MEDS: levoFLOXacin 750 mg Tablet PO (05:45)
[2021-05-24 05:47] LABS: D Dimer 1.45 ug/mIFEU (0-0.59)
[2021-05-24 05:48] LABS: Slide Review Slide Review Perform
[2021-05-24 05:53] LABS: Blood Urea Nitrogen 15 mg/dL (8-23); C Reactive Protein 56.8 mg/L (0.0-4.9); Calcium 8.5 mg/dL (8.5-10.5); Carbon Dioxide 26 mmol/L (22-29); Chloride 101 mmol/L (98-107); Glomerular Filtration Rate 223.3 mL/min (90-130); Glucose 82 mg/dL (65-115); Osmolality Calculated 282 mOsm/kg (285-295); Sodium 136 mmol/L (136-145)
[2021-05-24 06:00] LABS: Procalcitonin 0.07 ng/mL (0-0.5)
--- NOTE | 2021-05-24 07:00 | XRR_ITS ---
PROCEDURE INFORMATION: Exam: XR Chest Exam date and time: 05/24/2021 4:09 AM Age: 66 years old Clinical indication: Condition or disease; Other: Covid TECHNIQUE: Imaging protocol: XR of the chest. Views: 1 view. Total images: 1 COMPARISON: CR XR chest 1V portable [id number] 05/23/2021 4:11 PM FINDINGS: Lungs: Left pulmonary opacity is again noted and appears unchanged from the prior exam. Interval worsening of right pleuroparenchymal disease. Approximate 2 cm tubular density projecting in the right mid lung most likely artifact external to the patient. Pleural spaces: No pneumothorax. Heart/Mediastinum: Heart size is stable when compared to the prior exam. Bones/joints: Osseous structures are unchanged from the prior exam. Organs: Surgical clips are present in the right upper quadrant which are suggestive of prior cholecystectomy. XR/XR chest 1V portable [id number] IMPRESSION: 1. Left pulmonary opacity is again noted and appears unchanged from the prior exam. 2. Interval worsening of right pleuroparenchymal disease. 3. Approximate 2 cm tubular density projecting in the right mid lung most likely artifact external to the patient.
[2021-05-24] MEDS: sodium chlor 0.9% + KCl 40 mEq 40 MEQ/1,000 ML BAG 75 MEQ IV (07:02)
[2021-05-24] MEDS: sodium polystyrene sulfonate 15 gm/60 mL Btl PO (07:53)
[2021-05-24 08:17] LABS: ABG PCO2 40.5 mmHg (35-45); ABG PH Result 7.44 (7.35-7.45); Arterial Blood Gas Hematocrit 40.6 % (37-47); Base Excess ABG 3.1 mmol/L (-2.0-2.0); Blood Gas Sample Site Brachial, right; Blood Gas Sample Type Arterial; Carboxyhemoglobin 0.9 %THgb (0.4-20.1); HCO3 ABG 27.5 mmol/L (22-26); HGB O2 Sat 81.2 % (95-100); Methemoglobin 0.9 % (0.4-1.5); PO2 ABG 45.8 mmHg (80.0-100.0); Total Hemoglobin 13.3 g/dL (12-16)
--- NOTE | 2021-05-24 08:28 | PC.SOCIAL ---
IMM Update Patient remains on HHF @ this time. Called and spoke to patients jose alberto Capellan and updated IMM and Copy in chart updated.
[2021-05-24] MEDS: dexamethasone 4 mg Tablet 3 MG PO ×2 (08:57→17:53)
[2021-05-24] MEDS: pantoprazole DR 40 mg Tablet PO (08:57)
--- NOTE | 2021-05-24 09:38 | PC.NURSE ---
Patient reports tummy hurts. Having loose BM from kayexolate this morning.
--- NOTE | 2021-05-24 12:23 | P.PN_ITS ---
Subjective Subjective: This morning patient is saturating well 94% on 80% heated high flow, she is on 40 L She was not endorsing good appetite however when I was about to exit the room she asked for chicken broth She is awake and alert however seems very lethargic and dehydrated Potassium supplementation discontinued, given Kayexalate Vitals/I&O/Wt Last Vital Signs Temp 98.9 F 05/23/21 16:00 Pulse 91 05/24/21 10:20 Resp 20 H 05/24/21 10:20 BP 160/104 05/24/21 09:00 Pulse Ox 94 05/24/21 10:20 05/23/21 05/24/21 05/24/21 22:59 06:59 14:59 Intake Total 480 / 720 240 / 960 1287.5 / 1287.5 Output Total 1000 / 1000 Balance 480 / 720 -760 / -40 1287.5 / 1287.5 Weight last 48 hrs Weight 88.587 kg Weight 90.038 kg Physical Exam Narrative: Nonfocal neuro exam Patient is saturating well on 80% FiO2 Heated high flow Bilateral breath sounds with crackles Abdomen is soft Clinical signs of dehydration Edema, purulent Nonfocal neuro exam Fatigued and lethargic No active respiratory distress Hearing impairment Urinary Catheter Management: Suarez: Cath Placed During This Visit: yes Reason for Continuing Indwelling Catheter: Accurate Measurement of Urinary Output in Critically Ill Patients Urinary Catheter Date of Insertion: 05/23/21 Urinary Catheter Time of Insertion: 17:21 Data : 05/24/21 05:24 05/24/21 05:24 Micro: Microbiology 05/21/21 02:20 Gram Stain - Final Sputum - Expectorated Sputum Sputum Culture - Final Paola albicans A&P Assessment and plan (1) Hypokalemia: Status: Acute (2) Acute respiratory failure with hypoxia and hypercapnia: Status: Acute (3) COVID-19: Status: Acute (4) COPD exacerbation: Status: Acute (5) Leukopenia: Status: Acute (6) Sclerodactyly: Status: Acute (7) Systemic sclerosis with limited cutaneous involvement: Status: Acute (8) Abdominal aortic aneurysm: Status: Acute Qualifiers: Presence of rupture: without rupture Qualified Code(s): I71.4 - Abdominal aortic aneurysm, without rupture (9) Pulmonary hypertension: Status: Acute (10) Limited systemic sclerosis: Status: Acute Plan COVID-19 related acute hypoxia Currently on heated high flow Continue Decadron Baricitinib initiated yesterday Secondary to high D-dimer will request CTA chest I will escalate her anticoagulating agent to full dose No active chest pain Anorexia Encourage patient to increase her p.o. intake Hyperkalemia: Given Kayexalate, it is secondary to use of medications, discontinue potassium supplementation, No active signs of HERSON She is awake and alert Monitor in ICU for now Continue Decadron, high-dose anticoagulating agent, baricitinib Continue ICU management Full code Suarez catheter has been placed on 05/23 Attestations Medical Necessity Statement*: Continue hospitalization Time Spent in Patient Care: 20mins Coding Level of Care Code Acute Android Framework Developer for [facility] Hemant Diagnoses Hypokalemia E87.6 Acute respiratory failure with hypoxia and hypercapnia J96.01; J96.02 COVID-19 U07.1 COPD exacerbation J44.1 Leukopenia D72.819 Sclerodactyly L94.3 Systemic sclerosis with limited cutaneous involvement M34.9 Abdominal aortic aneurysm I71.4 Presence of rupture: without rupture Pulmonary hypertension I27.20 Limited systemic sclerosis M34.9
--- NOTE | 2021-05-24 12:42 | CT_ITS ---
WS: [id number] CTA OF THE CHEST WITH PULMONARY EMBOLISM PROTOCOL TECHNIQUE: High-resolution contrast enhanced CTA of the chest with coronal and sagittal reformatted i mages with pulmonary embolism protocol. MIP images are also reviewed. CLINICAL INFORMATION: HYpoxia covid COMPARISON: CT chest 6 19,019 DLP: 491.[address] scans at [facility] use at least one of these dose optimization techniques: automated e xposure control; mA and/or kV adjustment per patient size (includes targeted exams where dose is matc hed to clinical indication); or iterative reconstruction. FINDINGS: Proximal main pulmonary arteries are normal. Normal segmental pulmonary arteries. Distal pulmonary ar teries not well evaluated due to motion and respiratory artifact. Normal caliber thoracic aorta. Bilateral bronchovascular thickening RIGHT greater than LEFT. Spiculated mass in the RIGHT supra hilu m measuring 2.3 x 2.1 x 2.9 CM. Associated thickening extending into the anterior mediastinum. Adjace nt anterior mediastinal lymphadenopathy. Soft tissue thickening extends about the RIGHT hilum. Mild n arrowing of the RIGHT upper lobe bronchus. Soft tissue thickening thickening extends to the RIGHT hil um with RIGHT infrahilar mass measuring 2.6 x 2.1 cm. Obstruction of the RIGHT lower lobe bronchi wit h partial RIGHT lower lobe collapse. Hazy groundglass infiltrates in the mid and lower lungs bilaterally worse in the LEFT compatible with Covid 19 pneumonia. Numerous noncalcified subcentimeter nodules in the upper lobes bilaterally largest measuring 4 mm. Th gabriel are nonspecific but metastatic disease not excluded. Additional nodules partially visualized RIGH T lower lobe the largest measuring 6.3 mm. No axillary lymphadenopathy. Normal GE junction. Normal ad renal glands. Cholecystectomy clips. Prominent hypertrophic changes thoracic spine. CT/CT angio chest PE protcl [id number] IMPRESSION: 1. Proximal main pulmonary arteries are normal. Distal pulmonary arteries not well evaluated due to respiratory breathing artifact. No evidence of pulmonary embolus. 2. Spiculated mass in the RIGHT supra hilum extending into the anterior medias tinum. This measures approximately 2.3 x 2.1 x 2.9 cm. AP by transverse by cran iocaudal. Soft tissue thickening extends into the mediastinum with associated l ymphadenopathy in the anterior mediastinum. 3. Soft tissue thickening extends to the RIGHT hilum with RIGHT infrahilar mas s measuring 2.6 x 2.1 cm 4. Partial RIGHT lower lobe collapse and consolidation. Obstruction of the RIG HT segmental lower lobe bronchi. 5. Suspected subcarinal lymphadenopathy measuring 2.5 cm in maximum dimension. Some images degraded due to motion artifact 6. Hazy ground glass infiltrates in the LEFT greater than RIGHT lower lobes an d lingula can be seen with Covid 19 pneumonia. 7. Numerous bilateral subcentimeter pulmonary nodules nonspecific but suspicio us for metastatic disease. Largest in the RIGHT lower lobe measures 6.3 mm. Notified Silvia Foss MD at 05/24/2021 2:22 PM.
--- NOTE | 2021-05-24 12:51 | USCV_ITS ---
Jenna Muir Age: 66 Gender: F : 1955 Exam Date: 05/24/2021 14:25 Ordering Phys: Silvia Foss MD Technologist: Emily Johnson Exam Location: [facility] [place] Indication: COVID AND SOB HISTORY: Covid and Sob PROCEDURES: The venous duplex Doppler examination of both lower extremities was performed in the standard fashion. The following venous structures were evaluated: common femoral vein, profunda vein, proximal portion of the greater saphenous vein, superficial femoral vein, and the popliteal vein. In addition, the posterior tibial and peroneal trunk were evaluated. Serial compression, augmentation maneuvers, and spectral Doppler flow evaluation were performed. FINDINGS: Normal 2-D Doppler and augmentation and compressibility throughout the lower extremity venous structures. Additional imaging through the proximal calf veins also reveals no thrombus. Limited evaluation of the greater saphenous vein is patent with no thrombus.. CONCLUSIONS No evidence of right lower extremity DVT. No evidence of left lower extremity DVT. Cam Turpin MD (Electronically Signed) Final Date: 26 May 2021 10:26 S
[2021-05-24] MEDS: enoxaparin 100 mg/mL Syringe 90 MG SUBCUT (13:11)
[2021-05-24] MEDS: iohexol 350 mg/mL 100 mL Btl IV (13:50)
[2021-05-24] MEDS: nystatin powder 15 gm Btl 1 APPLIC TOPICAL (17:25)
--- NOTE | 2021-05-24 18:27 | PC.NURSE ---
refused meals, educated on importance of adequate intake
[2021-05-24 18:59] LABS: Blood Urea Nitrogen 15 mg/dL (8-23); Calcium 8.1 mg/dL (8.5-10.5); Carbon Dioxide 23 mmol/L (22-29); Chloride 99 mmol/L (98-107); Creatinine Clr Calc Pharmacy 87.7612; Glomerular Filtration Rate 356.5 mL/min (90-130); Glucose 77 mg/dL (65-115); Osmolality Calculated 282 mOsm/kg (285-295); Sodium 136 mmol/L (136-145)
[2021-05-24 20:36] LABS: Glucose Point of Care 85 mg/dL (70-110)
--- NOTE | 2021-05-24 21:52 | NUR.SHIFT ---
Pt wakes up to verbal commands,but is very lethargic and falls asleep between questions. pt unable to confirm year or why she is in the hospital, but is able to tell this RN month and that she is in a hospital. Also pt's right arm is significantly more swollen then left arm.
[2021-05-25] VITALS (33 sets, daily range): BP systolic 107–165; BP diastolic 71–106; PULSE 85–102; RESP 12–29; TEMP 36.7–36.8; O2SAT 80–99; BMI 25.7
[2021-05-25] MEDS: enoxaparin 100 mg/mL Syringe 90 MG SUBCUT ×2 (01:24→13:06)
[2021-05-25] MEDS: ipratropium-albuterol 3 mL Neb INHALATION ×4 (02:43→20:14)
[2021-05-25 06:15] LABS: Basophils % 0.2 %; Hematocrit 40.6 % (37.0-47.0); Hemoglobin 13.2 g/dL (11.5-15.3); Lymphocytes # 0.5 10^3/uL (0.8-4.8); Lymphocytes % 9.9 %; Mean Corpuscular HGB Conc 32.5 g/dL (30.0-36.0); Mean Corpuscular Hemoglobin 34.9 pg (28.0-34.0); Mean Corpuscular Volume 107.4 fl (81-99); Mean Platelet Volume 11.1 fL (7.4-10.4); Monocytes # 0.1 10^3/uL (0.2-0.9); Monocytes % 2.9 %; Neutrophils # 3.89 10^3/uL (1.8-7.7); Neutrophils % 85.7 %; Nucleated Red Blood Cells % 0 %; Platelet Count 139 10^3/cmm (130-400); Red Blood Count 3.78 10^6/uL (4.1-5.3); Red Cell Distribution Width 14.8 % (12.1-15.1); White Blood Count 4.5 10^3/uL (4.0-10.0)
[2021-05-25] MEDS: levoFLOXacin 750 mg Tablet PO (06:17)
[2021-05-25 06:29] LABS: Anion Gap 16.8 (5-19); Blood Urea Nitrogen 19 mg/dL (8-23); Calcium 8.5 mg/dL (8.5-10.5); Carbon Dioxide 24 mmol/L (22-29); Chloride 98 mmol/L (98-107); Glomerular Filtration Rate 223.3 mL/min (90-130); Glucose 86 mg/dL (65-115); Osmolality Calculated 282 mOsm/kg (285-295); Potassium 3.8 mmol/L (3.5-5.1); Sodium 135 mmol/L (136-145)
[2021-05-25 06:31] LABS: Creatinine Clr Calc Pharmacy 87.7612
[2021-05-25] MEDS: pantoprazole DR 40 mg Tablet PO (08:20)
[2021-05-25] MEDS: dexamethasone 4 mg Tablet 3 MG PO ×2 (08:20→16:55)
[2021-05-25 09:06] LABS: ABG PCO2 41.4 mmHg (35-45); ABG PH Result 7.47 (7.35-7.45); Arterial Blood Gas Hematocrit 40.3 % (37-47); Base Excess ABG 5.6 mmol/L (-2.0-2.0); Blood Gas Allen Test Pos; Blood Gas Operator Identificat CAAK; Blood Gas Sample Site Radial, left; Blood Gas Sample Type Arterial; HCO3 ABG 29.8 mmol/L (22-26); Oxygen Device HAG; PO2 ABG 53.6 mmHg (80.0-100.0)
--- NOTE | 2021-05-25 09:26 | PM.PN ---
Subjective Subjective: Pt Is asking to be released from the hospital yesterday as well CTA did show bilateral hilar mass, likely stage III undiagnosed underlying pulmonary malignancy This morning she is on 70%, 40 L heated high flow She is lethargic and fatigued Questionable decision-making capacity Vitals/I&O/Wt Last Vital Signs Temp 98.2 F 05/25/21 08:00 Pulse 102 H 05/25/21 08:00 Resp 20 H 05/25/21 08:00 BP 147/86 05/25/21 08:00 Pulse Ox 92 05/25/21 08:00 05/24/21 05/25/21 05/25/21 22:59 06:59 14:59 Intake Total 30 / 30 Output Total 500 / 500 350 / 850 Balance -500 / 787.5 -350 / 437.5 30 / 30 Weight last 48 hrs Weight 86.183 kg Weight 88.587 kg Physical Exam Narrative: Patient is very drowsy Currently on heated high flow Arousable to verbal commands Clinical signs of dehydration Abdomen is soft Nonlabored breathing, crackles at the base of the lungs No signs of edema of legs SHe is arousable Nonfocal neuro exam Very hard of hearing S1, S2 Urinary Catheter Management: Suarez: Cath Placed During This Visit: yes Reason for Continuing Indwelling Catheter: Accurate Measurement of Urinary Output in Critically Ill Patients Urinary Catheter Date of Insertion: 05/23/21 Urinary Catheter Time of Insertion: 17:21 Data : 05/25/21 05:57 05/25/21 05:57 Micro: Microbiology 05/21/21 02:20 Gram Stain - Final Sputum - Expectorated Sputum Sputum Culture - Final Paola albicans A&P Assessment and plan (1) Hyperkalemia: Status: Acute (2) Hypoxia: Status: Acute (3) Hilar mass: Status: Acute (4) COVID-19: Status: Acute (5) COPD exacerbation: Status: Acute (6) Lung mass: Status: Acute Plan Hypoxia related to COVID-19 Spiculated mass found on CTA chest We will discuss in detail with her son today Questionable dyspnea capacity Patient is adamant that she wants to go home I would continue her Decadron, baricitinib Patient is full code Currently on heated high flow 70% 40 L D-dimer related to underlying malignancy Patient does have guarded prognosis considering bilateral lymphadenopathy which would qualify her for stage III pulmonary malignancy hyperkalemia: Drug-related, improved Continue ICU management Patient is full code Attestations Medical Necessity Statement*: Continue ICU management Time Spent in Patient Care: 20mins Coding Level of Care Code Acute Motorcycle Racer for Chg Fwd Diagnoses Hyperkalemia E87.5 Hypoxia R09.02 Hilar mass R91.8 COVID-19 U07.1 COPD exacerbation J44.1 Lung mass R91.8
--- NOTE | 2021-05-25 10:46 | PC.CHAP ---
Pastoral Care Encounter/Spiritual Assessment Type of Contact [] Declined lockstitch front edge tape sewer visit [] Patient/Family/Request visit [] Outpatient visit [] Follow-up visit [] Physician referral [] Code/Alert [x] Routine visit [] Staff referral [] Actively dying [x] Patient sleeping [] Family support [] [] Out of room [] Palliative care [] [] Receiving care in room [] Pre-surgical visit [] Trauma [] Long length of stay [x] ICU visit [x] Other: covid.. just received info regarding cancer in lungs Relational/Emotional Strength [] Patient feels connected with others/family/visitors/staff [] Distress [] Loneliness/isolation [] Abandonment Spirituality of Patient [] Person of Flores [] Attends Mormonism of their [place] [] Believes in Prayer [] Reads Bible or Alevism materials [] There are Spiritual issues to be addressed Language Translator Interventions [x] Prayer [] Active listening [] Non-anxious presence [] Spiritual/emotional support [] Crisis/trauma care [] Spiritual counseling [] Bereavement support [] Provided bereavement packet [] Provided Bible/devotional materials [] Provided toy/stuffed animal, coloring book to patient or family member [] Provided Communion [] Anointing/[place] [] Salvation [x] Completed spiritual assessment [] Other: Impact on Illness or Injury [] Angry [] Fearful [] Anxious [] Often cries [] Exhaustion [] Unable to work [] Unable to attend jewish [] Unable to walk/stand [] Unable to read [] Unable to drive [] Unable to eat/drink [] Unable to sleep [] Unable to be with family [] Patient intubated [] Other: Summary Time spent with patient
--- NOTE | 2021-05-25 13:15 | PC.NURSE ---
PT lying in bed, required firm sternal rub in order to wake. Once awake, pt expressed desire to let me and that she didn't want to take meds. Encouraged pt to take meds and she obliged. Took 2 pills and lovenox injection without issue. and KELLEY notified. Son is to be here around 1500. Will monitor.
[2021-05-25] MEDS: morphine 4 mg/mL SDV 1 mL 2 MG IVP (16:55)
[2021-05-25] MEDS: piperacillin-tazobactam 3.375 GM in sodium chloride 0.9% (plus) 50 ML IV (17:27)
--- NOTE | 2021-05-25 18:08 | PC.NURSE ---
Shift Note Frequent safety and comfort rounds continue. Orders and/or nursing care completed as indicated. Patient monitored for response to intervention and treatment(s). Education provided includes treatment plan, medications, cancer diagnosis and need for potential intubation. Pt made wishes known to MD that she wants to be intubated if needed. Resting in bed at this time. HHFNC 50L/75%. No other issues noted. Will continue to monitor.
[2021-05-26] VITALS (36 sets, daily range): BP systolic 103–159; BP diastolic 65–95; PULSE 83–104; RESP 16–40; TEMP 36.4–37; O2SAT 88–93
[2021-05-26] MEDS: piperacillin-tazobactam 3.375 GM in sodium chloride 0.9% (plus) 50 ML IV ×3 (01:19→16:40)
[2021-05-26] MEDS: ipratropium-albuterol 3 mL Neb INHALATION ×4 (02:40→20:11)
[2021-05-26 03:18] LABS: Hematocrit 35.9 % (37.0-47.0); Hemoglobin 11.9 g/dL (11.5-15.3); Lymphocytes # 0.4 10^3/uL (0.8-4.8); Lymphocytes % 10.2 %; Mean Corpuscular HGB Conc 33.1 g/dL (30.0-36.0); Mean Corpuscular Hemoglobin 35.2 pg (28.0-34.0); Mean Corpuscular Volume 106.2 fl (81-99); Mean Platelet Volume 11.2 fL (7.4-10.4); Monocytes # 0.1 10^3/uL (0.2-0.9); Monocytes % 2.8 %; Neutrophils % 85.6 %; Nucleated Red Blood Cells % 0.5 %; Platelet Count 136 10^3/cmm (130-400); Red Blood Count 3.38 10^6/uL (4.1-5.3); White Blood Count 4.3 10^3/uL (4.0-10.0)
[2021-05-26 03:35] LABS: Anion Gap 19.9 (5-19); Blood Urea Nitrogen 24 mg/dL (8-23); Calcium 8.1 mg/dL (8.5-10.5); Carbon Dioxide 26 mmol/L (22-29); Chloride 98 mmol/L (98-107); Glomerular Filtration Rate 223.3 mL/min (90-130); Glucose 96 mg/dL (65-115); Osmolality Calculated 294 mOsm/kg (285-295); Potassium 3.9 mmol/L (3.5-5.1); Sodium 140 mmol/L (136-145)
[2021-05-26 03:38] LABS: Slide Review Slide Review Perform
[2021-05-26] MEDS: pantoprazole DR 40 mg Tablet PO (07:54)
[2021-05-26] MEDS: dexamethasone 4 mg Tablet 6 MG PO (07:54)
[2021-05-26] MEDS: morphine 4 mg/mL SDV 1 mL 2 MG IVP ×4 (08:09→20:55)
[2021-05-26 08:34] LABS: ABG PCO2 45.1 mmHg (35-45); ABG PH Result 7.44 (7.35-7.45); Arterial Blood Gas Hematocrit 39.5 % (37-47); Base Excess ABG 5.7 mmol/L (-2.0-2.0); Blood Gas Allen Test Pos; Blood Gas Operator Identificat BD; Blood Gas Sample Site Radial, right; Blood Gas Sample Type Arterial; HCO3 ABG 30.7 mmol/L (22-26)
[2021-05-26 08:36] LABS: Oxygen Device NC
--- NOTE | 2021-05-26 10:12 | P.PN_ITS ---
Subjective Subjective: This morning patient was able to take a few sips of her juice She open her eyes and stated that she has some discomfort with her breathing, RT was planning to start her breathing treatment She did not ask any other question She looks comfortable on 75% oxygen, and requesting ABG today She is not using respiratory accessory muscles Vitals/I&O/Wt Last Vital Signs Temp 97.6 F 05/26/21 08:00 Pulse 95 05/26/21 09:00 Resp 20 H 05/26/21 09:00 BP 133/79 05/26/21 09:00 Pulse Ox 91 05/26/21 09:00 05/25/21 05/26/21 05/26/21 22:59 06:59 14:59 Intake Total 350 / 380 180 / 560 110 / 110 Output Total 225 / 225 280 / 505 Balance 125 / 155 -100 / 55 110 / 110 Weight last 48 hrs Weight 86.682 kg Weight 86.183 kg Physical Exam Narrative: Patient was comfortable On heated high flow 50 L, 75% Clinically dehydrated Dry cracked lips Able to follow commands Opens eyes to verbal command Awake and alert Nonfocal neuro exam Dry cracked lips Struggles to take sips with a straw No signs of edema Suarez catheter in place S1, S2 Bilateral breath sounds with chest congestion, rhonchi and crackles Urinary Catheter Management: Suarez: Cath Placed During This Visit: yes Reason for Continuing Indwelling Catheter: Accurate Measurement of Urinary Output in Critically Ill Patients Urinary Catheter Date of Insertion: 05/23/21 Urinary Catheter Time of Insertion: 17:21 Data : 05/26/21 03:05 05/26/21 03:05 A&P Assessment and plan (1) Lung mass: Status: Acute (2) Hilar mass: Status: Acute (3) Hypoxia: Status: Acute (4) Hyperkalemia: Status: Acute (5) COVID-19: Status: Acute (6) COPD exacerbation: Status: Acute (7) Leukopenia: Status: Acute (8) DDD (degenerative disc disease), lumbosacral: Status: Acute (9) Sclerodactyly: Status: Acute (10) Systemic sclerosis with limited cutaneous involvement: Status: Acute (11) Osteoarthritis, hip, bilateral: Status: Acute (12) Pulmonary hypertension: Status: Acute (13) Abdominal aortic aneurysm: Status: Acute Qualifiers: Presence of rupture: without rupture Qualified Code(s): I71.4 - Abdominal aortic aneurysm, without rupture Plan I have discussed her case with Dr. Cabrales A long family meeting was done yesterday Today patient is doing well on heated high flow 75% 50 L Chest congestion noted today, repeat x-rays ABG revealed slight improvement in hypoxia She will comfortable on heated high flow No acute indication to start BiPAP or consider intubation at this point Once she gets intubated we will do bronchoscopy for bronchoalveolar lavage and biopsy of the mass At the same time exhibitions and collections manager updated for her screening for select We will give her 1 dose of Lasix today, potassium repleted for hypokalemia We will keep her on morphine for anxiety related to shortness of breath COVID-19 related hypoxic respiratory failure continue baricitinib and Decadron and empirical coverage with Zosyn She is full code On soft mechanical diet She is experiencing anorexia DVT prophylaxis Lovenox no signs of PE on CTA chest, Patient can get out of bed to chair Suarez catheter in place to monitor output Attestations Medical Necessity Statement*: Continue ICU management Time Spent in Patient Care: 25mins Coding Level of Care Code Acute Webmethods Architect for g Fwd Diagnoses Lung mass R91.8 Hilar mass R91.8 Hypoxia R09.02 Hyperkalemia E87.5 COVID-19 U07.1 COPD exacerbation J44.1 Leukopenia D72.819 DDD (degenerative disc disease), lumbosacral M51.37 Sclerodactyly L94.3 Systemic sclerosis with limited cutaneous involvement M34.9 Osteoarthritis, hip, bilateral M16.0 Pulmonary hypertension I27.20 Abdominal aortic aneurysm I71.4 Presence of rupture: without rupture
--- NOTE | 2021-05-26 10:19 | XR_ITS ---
WS: [id number] Portable AP upright chest, 05/26/2021 Clinical Data: hypoxia Comparison: Portable chest, 05/24/2021. Findings: The left lower pleural opacity remains the same. There is a right basilar pleural opacity w hich is a combination of atelectasis, effusion and consolidation. The heart size is at the upper limi ts of normal. Monitor leads are on the chest wall. XR/XR chest 1V portable [id number] Impression: 1. No change in bilateral pulmonary opacities. 2. No change in heart size.
[2021-05-26] MEDS: FUROsemide 10 mg/mL SDV 2mL 20 MG IVP (10:25)
[2021-05-26] MEDS: potassium chloride ER 20 mEq Tablet 40 MEQ PO (10:25)
--- NOTE | 2021-05-26 11:46 | PC.SOCIAL ---
IMM not given Pt is not expected to d/c within the next 24-48hrs. Pt is still on HHF O2 at 50Liters at 75% FIO2.
[2021-05-26] MEDS: enoxaparin 40 mg/0.4 mL Syringe SUBCUT (13:09)
[2021-05-26] MEDS: acetylcysteine 200 mg/mL SDV 4 mL 100 MG INHALATION ×2 (14:25→20:11)
--- NOTE | 2021-05-26 17:49 | PC.NURSE ---
Pt resting in bed. AAOx2, has slept most of day. Refuses all meals. Given gatorade per pt request. Refuses to do anything, such as IS or acapella. Family aware of situation. Will monitor.
[2021-05-26] MEDS: acetaminophen 325 mg Tablet 650 MG PO (20:56)
[2021-05-27] VITALS (39 sets, daily range): BP systolic 111–141; BP diastolic 62–99; PULSE 82–105; RESP 14–36; TEMP 36.6–37.1; O2SAT 88–97
[2021-05-27] MEDS: morphine 4 mg/mL SDV 1 mL 2 MG IVP ×5 (00:47→20:37)
[2021-05-27] MEDS: piperacillin-tazobactam 3.375 GM in sodium chloride 0.9% (plus) 50 ML IV ×3 (01:54→17:20)
[2021-05-27] MEDS: ipratropium-albuterol 3 mL Neb INHALATION ×3 (02:24→14:03)
[2021-05-27] MEDS: acetylcysteine 200 mg/mL SDV 4 mL 100 MG INHALATION ×4 (02:25→20:16)
[2021-05-27 05:17] LABS: ABG PCO2 53.6 mmHg (35-45); Alveolar-Arterial Oxygen Gradi 52.7 mmHg (5-10); Arterial Blood Gas Hematocrit 42.1 % (37-47); Base Excess ABG 6.5 mmol/L (-2.0-2.0); Blood Gas Allen Test Pos; Blood Gas Operator Identificat JB; Blood Gas Sample Site Radial, right; Blood Gas Sample Type Arterial; Carboxyhemoglobin 0.9 %THgb (0.4-20.1); HGB O2 Sat 90.5 % (95-100); Ionized Calcium Level - ABG 1.2 mmol/L (1.1-1.4); Oxygen Device HAG; Oxygen Saturation ABG 92.2; PO2 ABG 63.4 mmHg (80.0-100.0); Total Hemoglobin 13.7 g/dL (12-16)
[2021-05-27 05:38] LABS: Basophils % 0.2 %; Hematocrit 38.2 % (37.0-47.0); Hemoglobin 12.5 g/dL (11.5-15.3); Lymphocytes # 0.6 10^3/uL (0.8-4.8); Lymphocytes % 9.7 %; Mean Corpuscular HGB Conc 32.7 g/dL (30.0-36.0); Mean Corpuscular Hemoglobin 35.7 pg (28.0-34.0); Mean Corpuscular Volume 109.1 fl (81-99); Mean Platelet Volume 11.3 fL (7.4-10.4); Monocytes # 0.2 10^3/uL (0.2-0.9); Monocytes % 2.8 %; Neutrophils # 4.94 10^3/uL (1.8-7.7); Neutrophils % 85.7 %; Nucleated Red Blood Cells % 0.3 %; Platelet Count 144 10^3/cmm (130-400); Red Cell Distribution Width 14.9 % (12.1-15.1); White Blood Count 5.8 10^3/uL (4.0-10.0)
[2021-05-27 06:00] LABS: Anion Gap 12.2 (5-19); Blood Urea Nitrogen 26 mg/dL (8-23); C Reactive Protein 56.2 mg/L (0.0-4.9); Calcium 8.8 mg/dL (8.5-10.5); Carbon Dioxide 31 mmol/L (22-29); Chloride 93 mmol/L (98-107); Glomerular Filtration Rate 160.2 mL/min (90-130); Glucose 162 mg/dL (65-115); Osmolality Calculated 282 mOsm/kg (285-295); Potassium 4.2 mmol/L (3.5-5.1); Sodium 132 mmol/L (136-145)
[2021-05-27 06:08] LABS: Procalcitonin 0.07 ng/mL (0-0.5)
[2021-05-27] MEDS: dexamethasone 4 mg Tablet 6 MG PO (08:19)
[2021-05-27] MEDS: pantoprazole DR 40 mg Tablet PO (08:19)
[2021-05-27] MEDS: ondansetron 2 mg/ML SDV 2 mL 4 MG IVP ×2 (08:34→12:22)
--- NOTE | 2021-05-27 11:13 | P.PN_ITS ---
Subjective Subjective: Patient was seen and examined, she was feeling nauseous however no active emesis, she had Gatorade and Powerade yesterday Negative fluid balance Pale complexion Currently on 75% oxygen Out of bed to chair Her daughter is at the bedside food production manager updated Vitals/I&O/Wt Last Vital Signs Temp 97.8 F 05/27/21 08:00 Pulse 97 05/27/21 08:21 Resp 35 H 05/27/21 08:53 BP 131/85 05/27/21 08:00 Pulse Ox 93 05/27/21 08:21 05/26/21 05/27/21 05/27/21 22:59 06:59 14:59 Intake Total 170 / 430 50 / 480 120 / 120 Output Total 825 / 825 1125 / 1950 Balance -655 / -395 -1075 / -1470 120 / 120 Weight last 48 hrs Weight 88.088 kg Weight 86.682 kg Physical Exam Narrative: Patient out of bed to chair Currently on 35% oxygen Crackles and rhonchi noted bilaterally Patient looks dehydrated Pale complexion Awake and alert Nonfocal neuro exam Very hard of hearing Abdomen is soft S1, S2 No signs of edema of legs Onychomycosis Signs of dehydration Urinary Catheter Management: Suarez: Cath Placed During This Visit: yes Reason for Continuing Indwelling Catheter: Accurate Measurement of Urinary Output in Critically Ill Patients Urinary Catheter Date of Insertion: 05/23/21 Urinary Catheter Time of Insertion: 17:21 Data : 05/27/21 05:30 05/27/21 05:30 Micro: Microbiology 05/25/21 17:32 MRSA Culture - Final Nose A&P Assessment and plan (1) Lung mass: Status: Acute (2) Hilar mass: Status: Acute (3) Hypoxia: Status: Acute (4) Hyperkalemia: Status: Acute (5) COVID-19: Status: Acute (6) COPD exacerbation: Status: Acute (7) Sclerodactyly: Status: Acute (8) Systemic sclerosis with limited cutaneous involvement: Status: Acute Plan Hypoxia related to COVID-19 Underlying bilateral hilar lymphadenopathy Currently patient is doing well on 75% oxygen No acute indication for intubation Family is agreeable for intubation, bronchoscopy and histopathological diagnosis She is not ready to be transferred to select facility, and planning to watch her on current regimen and not change any of her antimicrobials today, I would encourage her to eat more, a trial of Ritalin? 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
[2021-05-27] MEDS: enoxaparin 40 mg/0.4 mL Syringe SUBCUT (12:22)
--- NOTE | 2021-05-27 14:24 | XR_ITS ---
WS: [id number] Portable AP upright chest, 05/27/2021 Clinical Data: hypoxia Comparison: Portable chest, 05/26/2021 Findings: The patchy bilateral pulmonary opacities remain the same. There is a right basilar opacity which is a combination of consolidation, atelectasis and effusion. The pulmonary vascularity is not i ncreased. No pneumonia or pneumothorax is seen. The heart remains at the upper limits of normal. Sheri tor leads are on the chest wall. XR/XR chest 1V portable [id number] Impression: 1. No change in bilateral pulmonary opacities. 2. No change in heart size.
[2021-05-27 14:29] LABS: ABG PCO2 44.5 mmHg (35-45); ABG PH Result 7.47 (7.35-7.45); Alveolar-Arterial Oxygen Gradi 78.1 mmHg (5-10); Arterial Blood Gas Hematocrit 42.6 % (37-47); Base Excess ABG 7.5 mmol/L (-2.0-2.0); Blood Gas Allen Test Pos; Blood Gas Operator Identificat CAK; Blood Gas Sample Site Radial, left; Blood Gas Sample Type Arterial; Carboxyhemoglobin 0.9 %THgb (0.4-20.1); HCO3 ABG 32.3 mmol/L (22-26); HGB O2 Sat 90.5 % (95-100); Ionized Calcium Level - ABG 1.2 mmol/L (1.1-1.4); Oxygen Device HAG; Oxygen Saturation ABG 92.3; PO2 ABG 57.1 mmHg (80.0-100.0); Potassium Level - ABG 4.5 mmol/L (3.5-5.0); Total Hemoglobin 13.9 g/dL (12-16)
--- NOTE | 2021-05-27 17:51 | PC.NURSE ---
Pt up in chair from [id number]. Tolerated well. Assisted back to with assist x2. HHFNC 50L/80%. Pt alert and sitting in bed awake at this time. Family was able to get pt to eat chicken noodle soup earlier and drink more gatorade. Suarez cath draining freely to BSD. No issues noted. VSS at this time. Will monitor.
[2021-05-27] MEDS: acetaminophen 325 mg Tablet 650 MG PO (20:36)
[2021-05-28] VITALS (31 sets, daily range): BP systolic 89–144; BP diastolic 62–104; PULSE 85–110; RESP 7–33; TEMP 36.6–36.7; O2SAT 83–96
[2021-05-28] MEDS: piperacillin-tazobactam 3.375 GM in sodium chloride 0.9% (plus) 50 ML IV ×3 (01:29→17:21)
[2021-05-28] MEDS: acetylcysteine 200 mg/mL SDV 4 mL 100 MG INHALATION ×4 (03:12→20:04)
[2021-05-28] MEDS: ipratropium-albuterol 3 mL Neb INHALATION ×5 (03:12→20:04)
[2021-05-28 05:13] LABS: Basophils % 0.2 %; Hematocrit 36.8 % (37.0-47.0); Lymphocytes # 0.6 10^3/uL (0.8-4.8); Lymphocytes % 11.2 %; Mean Corpuscular HGB Conc 32.6 g/dL (30.0-36.0); Mean Corpuscular Hemoglobin 34.8 pg (28.0-34.0); Mean Corpuscular Volume 106.7 fl (81-99); Mean Platelet Volume 11.4 fL (7.4-10.4); Monocytes # 0.2 10^3/uL (0.2-0.9); Monocytes % 3.3 %; Neutrophils # 4.53 10^3/uL (1.8-7.7); Neutrophils % 82.7 %; Nucleated Red Blood Cells % 0.4 %; Platelet Count 145 10^3/cmm (130-400); Red Blood Count 3.45 10^6/uL (4.1-5.3); Red Cell Distribution Width 14.6 % (12.1-15.1); White Blood Count 5.5 10^3/uL (4.0-10.0)
[2021-05-28 05:20] LABS: ABG PCO2 51.9 mmHg (35-45); ABG PH Result 7.44 (7.35-7.45); Arterial Blood Gas Hematocrit 36.8 % (37-47); Base Excess ABG 9.3 mmol/L (-2.0-2.0); Blood Gas Allen Test Pos; Blood Gas Sample Type Arterial; PO2 ABG 62.4 mmHg (80.0-100.0)
[2021-05-28 05:22] LABS: Blood Gas Sample Site Radial, right; Oxygen Device HAG
[2021-05-28 05:38] LABS: Blood Urea Nitrogen 16 mg/dL (8-23); Calcium 8.6 mg/dL (8.5-10.5); Carbon Dioxide 32 mmol/L (22-29); Chloride 95 mmol/L (98-107); Glomerular Filtration Rate 223.3 mL/min (90-130); Glucose 92 mg/dL (65-115); Osmolality Calculated 279 mOsm/kg (285-295); Sodium 134 mmol/L (136-145)
[2021-05-28] MEDS: dexamethasone 4 mg Tablet 6 MG PO (08:32)
[2021-05-28] MEDS: pantoprazole DR 40 mg Tablet PO (08:32)
--- NOTE | 2021-05-28 09:06 | USR_ITS ---
PROCEDURE INFORMATION: Exam: US Duplex Right Upper Extremity Veins, Limited Exam date and time: 05/28/2021 9:40 AM Age: 66 years old Clinical indication: Pain; Arm, lower; Right; Additional info: Swelling TECHNIQUE: Imaging protocol: Real-time Duplex ultrasound of the Right Upper Extremity with 2-D malcolm scale, color Doppler flow and spectral waveform analysis with image documentation. Limited exam focused on the right upper extremity veins. COMPARISON: MRI Shoulder w/o RIGHT* [id number] 08/05/2018 2:21 PM FINDINGS: Right deep veins: Unremarkable. Axillary and brachial veins are patent throughout without thrombus. Normal Doppler waveforms. Normal compressibility and/or augmentation response. Visualized internal jugular and subclavian veins are patent. Right superficial veins: Unremarkable. Visualized cephalic and basilic veins are patent without thrombus. Soft tissues: Unremarkable. US/[place] [id number] IMPRESSION: No evidence of deep vein thrombosis.
[2021-05-28] MEDS: FUROsemide 10 mg/mL SDV 2mL 20 MG IVP (09:27)
--- NOTE | 2021-05-28 09:40 | P.PN_ITS ---
Subjective Subjective: This morning patient is on 80% heated high flow 50 L Afebrile Negative fluid balance Course rhonchi and crackles of lungs noted No leukocytosis She did not endorse new complaints today, fatigued and lethargic in her bed Requested Doppler venous for right arm Vitals/I&O/Wt Last Vital Signs Temp 98.1 F 05/27/21 20:00 Pulse 97 05/28/21 08:23 Resp 20 H 05/28/21 08:20 BP 100/62 05/28/21 06:00 Pulse Ox 96 05/28/21 08:20 05/27/21 05/28/21 05/28/21 22:59 06:59 14:59 Intake Total 290 / 580 50 / 630 120 / 120 Output Total 1225 / 1225 600 / 1825 Balance -935 / -645 -550 / -1195 120 / 120 Weight last 48 hrs Weight 87.09 kg Weight 88.088 kg Physical Exam Narrative: Patient was in her bed Fatigued and lethargic Able to respond to verbal commands Coarse rhonchi and crackles bilaterally noted on lung auscultation S1, S2 Clinical signs of dehydration Nonfocal neuro exam Right arm looks more swollen as compared to left Abdomen soft No signs of edema of legs She is awake and alert Urinary Catheter Management: Suarez: Cath Placed During This Visit: yes Reason for Continuing Indwelling Catheter: Accurate Measurement of Urinary Output in Critically Ill Patients Urinary Catheter Date of Insertion: 05/23/21 Urinary Catheter Time of Insertion: 17:21 Data : 05/28/21 04:41 05/28/21 04:41 A&P Assessment and plan (1) Goals of care, counseling/discussion: Status: Acute (2) Lung mass: Status: Acute (3) Hilar mass: Status: Acute (4) Hypoxia: Status: Acute (5) Acute respiratory failure with hypoxia and hypercapnia: Status: Acute (6) COVID-19: Status: Acute (7) COPD exacerbation: Status: Acute (8) Leukopenia: Status: Acute (9) Sclerodactyly: Status: Acute (10) Osteoarthritis, hip, bilateral: Status: Acute (11) Systemic sclerosis with limited cutaneous involvement: Status: Acute (12) Hypoxia: Status: Acute (13) Anorexia: Status: Acute Plan COVID-19 related hypoxia Underlying bilateral hilar lymphadenopathy Anorexia related to COVID-19 Poor p.o. intake Coarse crackles with rhonchi She is in negative balance, will give her another dose of IV Lasix, continue Mucomyst, Mucinex, DuoNeb with Decadron Empirical antibiotic coverage for 10 days No signs of PE Not showing signs of recovery yet FiO2 80% today Continue to monitor in ICU If she starts showing signs of recovery and if you are able to wean her oxygen down to 60% we will try to transfer to [facility], piano case maker updated in case of further worsening then we will go ahead and pursue histopathological diagnosis after intubating her, family is on board with this plan Patient is full code I would like to give her a trial of Ritalin today Continue soft mechanical diet She can have supplements such as protein shakes DVT prophylaxis: Lovenox Right arm swelling, rule out DVT, requested venous Doppler Attestations Medical Necessity Statement*: Continue ICU management Time Spent in Patient Care: 25mins Coding Level of Care Code Acute Archivist Economic History for Jonog Fwd Diagnoses Goals of care, counseling/discussion Z71.89 Lung mass R91.8 Hilar mass R91.8 Hypoxia R09.02 Acute respiratory failure with hypoxia and hypercapnia J96.01; J96.02 COVID-19 U07.1 COPD exacerbation J44.1 Leukopenia D72.819 Sclerodactyly L94.3 Osteoarthritis, hip, bilateral M16.0 Systemic sclerosis with limited cutaneous involvement M34.9 Hypoxia R09.02 Anorexia R63.0
[2021-05-28] MEDS: morphine 4 mg/mL SDV 1 mL 2 MG IVP ×2 (10:12→20:30)
[2021-05-28] MEDS: methylphenidate 10 mg Tablet 5 MG PO (10:12)
--- NOTE | 2021-05-28 10:17 | PC.SOCIAL ---
IMM not updated IMM not updated as patient isn't accepted to dc in the next 24-48 hours.
[2021-05-28] MEDS: enoxaparin 40 mg/0.4 mL Syringe SUBCUT (13:17)
[2021-05-28] MEDS: guaiFENesin 600 mg Tablet PO (17:21)
[2021-05-28] MEDS: ziprasidone 20 mg/mL SDV 10 MG IM (17:21)
--- NOTE | 2021-05-28 18:30 | PC.NURSE ---
Called Dr. Foss about pt due to increased confusion and pt refusing to put oxygen on. Pt pulled oxygen off and refused to put it back on saying she saw it on the TV and its killing people and she is not doing anything until the rescue boat operator get here. Pt agreed to rash[place]don after she was told it would help her relax. Geodon was given at around 1720 - see eMAR, Dr. Foss was called about 10 minutes after Geodon administration and he recommended having the patient's son come in and sit with her. Dillan RUANO was called and came down and was able to get the patient to put her oxygen back on and oxygen saturation slowly came up from 67% to currently 92%/ The son was finally contacted and agreed to come in. Son -Timi Muir arrived around 1830.
[2021-05-28] MEDS: budesonide 0.5 mg/2 mL Neb INHALATION (20:04)
[2021-05-28] MEDS: acetaminophen 325 mg Tablet 650 MG PO (20:30)
[2021-05-29] VITALS (32 sets, daily range): BP systolic 82–149; BP diastolic 52–91; PULSE 69–119; RESP 12–29; TEMP 36.7–37; O2SAT 84–98
[2021-05-29] MEDS: piperacillin-tazobactam 3.375 GM in sodium chloride 0.9% (plus) 50 ML IV ×3 (02:07→17:07)
[2021-05-29] MEDS: acetylcysteine 200 mg/mL SDV 4 mL 100 MG INHALATION ×4 (03:22→19:39)
[2021-05-29] MEDS: ipratropium-albuterol 3 mL Neb INHALATION ×4 (03:22→19:38)
[2021-05-29 03:44] LABS: ABG PCO2 51.2 mmHg (35-45); ABG PH Result 7.46 (7.35-7.45); Arterial Blood Gas Hematocrit 37.2 % (37-47); Base Excess ABG 10.9 mmol/L (-2.0-2.0); Blood Gas Allen Test Pos; Blood Gas Sample Site Radial, right; Blood Gas Sample Type Arterial; HCO3 ABG 36.4 mmol/L (22-26); Oxygen Device NC; PO2 ABG 55.5 mmHg (80.0-100.0)
[2021-05-29] MEDS: acetaminophen 325 mg Tablet 650 MG PO (04:12)
[2021-05-29] MEDS: morphine 4 mg/mL SDV 1 mL 2 MG IVP ×2 (04:12→08:47)
[2021-05-29 04:46] LABS: Basophils % 0.2 %; Hematocrit 37.1 % (37.0-47.0); Hemoglobin 11.8 g/dL (11.5-15.3); Lymphocytes # 0.7 10^3/uL (0.8-4.8); Lymphocytes % 11.3 %; Mean Corpuscular HGB Conc 31.8 g/dL (30.0-36.0); Mean Corpuscular Volume 110.1 fl (81-99); Mean Platelet Volume 11.5 fL (7.4-10.4); Monocytes # 0.2 10^3/uL (0.2-0.9); Monocytes % 3.6 %; Neutrophils # 5.34 10^3/uL (1.8-7.7); Neutrophils % 82.9 %; Nucleated Red Blood Cells % 0.3 %; Platelet Count 165 10^3/cmm (130-400); Red Blood Count 3.37 10^6/uL (4.1-5.3); Red Cell Distribution Width 14.6 % (12.1-15.1); White Blood Count 6.4 10^3/uL (4.0-10.0)
[2021-05-29 05:07] LABS: Blood Urea Nitrogen 17 mg/dL (8-23); Calcium 8.4 mg/dL (8.5-10.5); Carbon Dioxide 32 mmol/L (22-29); Chloride 95 mmol/L (98-107); Glomerular Filtration Rate 223.3 mL/min (90-130); Glucose 100 mg/dL (65-115); Osmolality Calculated 280 mOsm/kg (285-295); Sodium 134 mmol/L (136-145)
[2021-05-29] MEDS: budesonide 0.5 mg/2 mL Neb INHALATION ×2 (08:25→19:38)
[2021-05-29] MEDS: benzonatate 100 mg Capsule 200 MG PO (08:46)
[2021-05-29] MEDS: guaiFENesin 600 mg Tablet PO ×2 (08:46→17:07)
[2021-05-29] MEDS: escitalopram 10 mg Tablet 20 MG PO (08:46)
[2021-05-29] MEDS: dexamethasone 4 mg Tablet 6 MG PO (08:47)
[2021-05-29] MEDS: pantoprazole DR 40 mg Tablet PO (08:47)
--- NOTE | 2021-05-29 11:11 | PM.PN ---
Subjective Subjective: This morning patient was stating that she is in pain and wants pain medication, she was awake and able to communicate Noticed hypoxia on 65% FiO2 I increased her heated high flow settings to 55 L, 75% FiO2 She is satting 89 to 90% Hemodynamically stable, tachycardic Clinical signs of dehydration Negative fluid balance Yesterday evening she was very agitated required a dose of Geodon and morphine Son was requested to come and sit with her as she was trying to rip off her oxygen and stating that we are trying to kill her with the use of oxygen in the hospital Antidepressants were started yesterday, Vitals/I&O/Wt Last Vital Signs Temp 97.9 F 05/28/21 16:00 Pulse 102 H 05/29/21 09:31 Resp 12 05/29/21 09:31 BP 115/77 05/29/21 09:00 Pulse Ox 84 L 05/29/21 09:31 05/28/21 05/29/21 05/29/21 22:59 06:59 14:59 Intake Total 50 / 340 50 / 390 Output Total 850 / 850 450 / 1300 Balance -800 / -510 -400 / -910 Weight last 48 hrs Weight 87.997 kg Weight 87.09 kg Physical Exam Narrative: Patient was awake and alert Nonfocal neuro exam Chest congestion Rales and rhonchi Clinical signs of dehydration 55 L, 75% oxygen Nonfocal neuro exam Clinically dehydrated Abdomen soft S1, S2 tachycardia Urinary Catheter Management: Suarez: Cath Placed During This Visit: yes Reason for Continuing Indwelling Catheter: Accurate Measurement of Urinary Output in Critically Ill Patients Urinary Catheter Date of Insertion: 05/23/21 Urinary Catheter Time of Insertion: 17:21 Data : 05/29/21 04:00 05/29/21 04:00 A&P Assessment and plan (1) Swelling of right upper extremity: Status: Acute (2) Anorexia: Status: Acute (3) Goals of care, counseling/discussion: Status: Acute (4) Lung mass: Status: Acute (5) Hilar mass: Status: Acute (6) Hypoxia: Status: Acute (7) COPD exacerbation: Status: Acute (8) Sclerodactyly: Status: Acute Plan Hypoxia related to COVID-19 with underlying possible lung malignancy She is not stable to be transported to LT for now In case of further worsening she will be intubated here and histopathological diagnosis will be pursued with bronchoscopy, I have already spoken with mechanical shop laborer She does get episode of psychosis, yesterday I added Geodon to calm her down she was trying to rip of her oxygen she was stating that we are trying to kill her with the use of oxygen She is a bit calm and cooperative today Does respond to morphine to some extent Family is aware I have added antidepressants as she is experiencing anorexia, monitor for any signs of fungemia, fungal rash, Pain is 10 days of IV antibiotics Afebrile Cultures negative to date DVT prophylaxis Lovenox Family updated on daily basis Patient is full code Heated high flow, persistent hypoxia, increase settings to 75% oxygen 55 L Continue Mucinex, Mucomyst, DuoNeb, Decadron 10-day regimen start de-escalating tomorrow Attestations Medical Necessity Statement*: Continue ICU management Time Spent in Patient Care: 20mins Coding Level of Care Code Acute Home Health Provider for Kevin Marcos Diagnoses Swelling of right upper extremity M79.89 Anorexia R63.0 Goals of care, counseling/discussion Z71.89 Lung mass R91.8 Hilar mass R91.8 Hypoxia R09.02 COPD exacerbation J44.1 Sclerodactyly L94.3
[2021-05-29] MEDS: FUROsemide 10 mg/mL SDV 2mL 20 MG IVP (12:55)
[2021-05-29] MEDS: enoxaparin 40 mg/0.4 mL Syringe SUBCUT (12:56)
--- NOTE | 2021-05-29 13:06 | PC.NURSE ---
Patient refused both breakfast and lunch today. Patient also refused to get up and sit in a chair this am stating, No, maybe later. When this nurse offered for patient to get up in a chair this afternoon for lunch patient stated, No, I am going to stay right here. . This nurse educated patient and son on the importance of participating in physical activities during hospital stay. Patient will need further reinforcement and her son verbalized understanding and then verbally encouraged his mother to participate. Ms. Muir still insisted she stay in bed. Son updated on plan of care this afternoon, and verbalized his understanding.
[2021-05-30] VITALS (37 sets, daily range): BP systolic 93–144; BP diastolic 61–87; PULSE 85–106; RESP 15–34; TEMP 36.4–36.6; O2SAT 89–96; BMI 25.2
[2021-05-30] MEDS: morphine 4 mg/mL SDV 1 mL 2 MG IVP ×2 (02:31→09:43)
[2021-05-30] MEDS: piperacillin-tazobactam 3.375 GM in sodium chloride 0.9% (plus) 50 ML IV ×2 (02:31→09:46)
[2021-05-30] MEDS: ipratropium-albuterol 3 mL Neb INHALATION ×4 (02:47→19:53)
[2021-05-30] MEDS: acetylcysteine 200 mg/mL SDV 4 mL 100 MG INHALATION ×4 (02:48→19:53)
[2021-05-30 04:55] LABS: Basophils % 0.1 %; Hematocrit 38.7 % (37.0-47.0); Hemoglobin 12.4 g/dL (11.5-15.3); Lymphocytes # 0.5 10^3/uL (0.8-4.8); Lymphocytes % 6.6 %; Mean Corpuscular Volume 109.3 fl (81-99); Monocytes # 0.3 10^3/uL (0.2-0.9); Monocytes % 3.1 %; Neutrophils # 7.06 10^3/uL (1.8-7.7); Neutrophils % 87.7 %; Nucleated Red Blood Cells % 0.4 %; Platelet Count 196 10^3/cmm (130-400); Red Blood Count 3.54 10^6/uL (4.1-5.3); Red Cell Distribution Width 14.6 % (12.1-15.1); White Blood Count 8.1 10^3/uL (4.0-10.0)
[2021-05-30 05:08] LABS: Blood Urea Nitrogen 26 mg/dL (8-23); C Reactive Protein 109.9 mg/L (0.0-4.9); Calcium 8.3 mg/dL (8.5-10.5); Carbon Dioxide 30 mmol/L (22-29); Chloride 93 mmol/L (98-107); Glomerular Filtration Rate 223.3 mL/min (90-130); Glucose 104 mg/dL (65-115); Magnesium 1.9 mg/dL (1.7-2.3); Osmolality Calculated 285 mOsm/kg (285-295); Sodium 135 mmol/L (136-145)
[2021-05-30 05:16] LABS: Anion Gap 15.7 (5-19); Potassium 3.7 mmol/L (3.5-5.1)
[2021-05-30] MEDS: budesonide 0.5 mg/2 mL Neb INHALATION ×2 (07:59→19:53)
[2021-05-30] MEDS: dexamethasone 4 mg Tablet 6 MG PO (09:47)
[2021-05-30] MEDS: pantoprazole DR 40 mg Tablet PO (09:47)
[2021-05-30] MEDS: guaiFENesin 600 mg Tablet PO ×2 (09:47→18:47)
[2021-05-30] MEDS: escitalopram 10 mg Tablet 20 MG PO (09:47)
--- NOTE | 2021-05-30 10:16 | PC.NURSE ---
Pt had pulled all lines, wires and oxygen off and is yelling at staff to kill her. Pt has been seen poking eyes attempting to cause self harm. Dr. Foss at bedside and gave verbal orders for Precedex, non violent restraints, and to stop lexapro. Son updated by
--- NOTE | 2021-05-30 10:40 | PC.CHAP ---
Pastoral Care Encounter/Spiritual Assessment Type of Contact [] Declined beef grinder visit [] Patient/Family/Request visit [] Outpatient visit [] Follow-up visit [] Physician referral [] Code/Alert [x] Routine visit [] Staff referral [] Actively dying [] Patient sleeping [] Family support [] [] Out of room [] Palliative care [] [] Receiving care in room [] Pre-surgical visit [] Trauma [] Long length of stay [x] ICU visit [] Other: Relational/Emotional Strength [] Patient feels connected with others/family/visitors/staff [] Distress [] Loneliness/isolation [] Abandonment Spirituality of Patient [] Person of [place] [] Attends Jewish of their [place] [] Believes in Prayer [] Reads Bible or Gnosticist materials [] There are Spiritual issues to be addressed Technical Publications Writer Interventions [x] Prayer [] Active listening [] Non-anxious presence [] Spiritual/emotional support [] Crisis/trauma care [] Spiritual counseling [] Bereavement support [] Provided bereavement packet [] Provided Bible/devotional materials [] Provided toy/stuffed animal, coloring book to patient or family member [] Provided Communion [] Anointing/Eclectic [] Salvation [x] Completed spiritual assessment [] Other: Impact on Illness or Injury [] Angry [] Fearful [] Anxious [] Often cries [] Exhaustion [] Unable to work [] Unable to attend mandaeism [] Unable to walk/stand [] Unable to read [] Unable to drive [] Unable to eat/drink [] Unable to sleep [] Unable to be with family [] Patient intubated [] Other: Summary Time spent with patient
[2021-05-30] MEDS: FUROsemide 10 mg/mL SDV 2mL 20 MG IVP (12:26)
[2021-05-30] MEDS: enoxaparin 40 mg/0.4 mL Syringe SUBCUT (12:27)
--- NOTE | 2021-05-30 12:48 | PM.PN ---
Subjective Subjective: Patient this morning was very agitated, she was yelling that she wants to and she was singing songs stating that she is in the evidence I have updated her son to come over to Start Precedex, she was trying to remove her oxygen and she grabbed her breakfast tray knife and tried to hurt herself I will discontinue Escitalopram, Currently on heated high flow 75% 50 L Vitals/I&O/Wt Last Vital Signs Temp 97.6 F 05/30/21 04:00 Pulse 93 05/30/21 12:00 Resp 24 H 05/30/21 12:00 BP 140/85 05/30/21 12:00 Pulse Ox 96 05/30/21 12:00 05/29/21 05/30/21 05/30/21 22:59 06:59 14:59 Intake Total 50 / 160 100 / 260 Output Total 825 / 825 240 / 1065 Balance -775 / -665 -140 / -805 Weight last 48 hrs Weight 84.623 kg Weight 87.997 kg Physical Exam Narrative: Patient is very agitated Chanting that she wants to Nonfocal neuro exam Right arm swelling noted Looks dehydrated and malnourished She would only take a couple of sips and that is it Bilateral breath sounds less rhonchorous as compared to yesterday Dry cracked lips Abdomen is soft S1, S2 sinus tachycardia Urinary Catheter Management: Suarez: Cath Placed During This Visit: yes Reason for Continuing Indwelling Catheter: Accurate Measurement of Urinary Output in Critically Ill Patients Urinary Catheter Date of Insertion: 05/23/21 Urinary Catheter Time of Insertion: 17:21 Data : 05/30/21 04:10 05/30/21 04:10 A&P Assessment and plan (1) Swelling of right upper extremity: Status: Acute (2) Anorexia: Status: Acute (3) Goals of care, counseling/discussion: Status: Acute (4) Lung mass: Status: Acute (5) Hilar mass: Status: Acute (6) Hypoxia: Status: Acute (7) COPD exacerbation: Status: Acute (8) COVID-19: Status: Acute (9) Sclerodactyly: Status: Acute (10) Hypoxia: Status: Acute (11) Pulmonary hypertension: Status: Acute (12) Abdominal aortic aneurysm: Status: Acute Qualifiers: Presence of rupture: without rupture Qualified Code(s): I71.4 - Abdominal aortic aneurysm, without rupture Plan Delirium related to hypoxia Discontinue escitalopram, she has been showing some aggression since I initiated antidepressant, will discontinue escitalopram Family updated No active signs of stroke She is also dehydrated Hypoxia related to COVID-19 with underlying spiculated mass concerning for cancer Patient is an active smoker Currently she is getting Decadron along baricitinib along DuoNeb and budesonide Heated high flow 75% Anorexia, patient has not eaten solid food, she has been relying on Gatorade and protein shakes Creatinine is normal, sodium 135 Reluctant to add IV fluids considering bilateral groundglass opacities on x-ray She is getting IV Lasix to keep her in negative balance I will hold Lasix for today Patient is full code Soft mechanical diet Family updated DVT prophylaxis Lovenox PE has been ruled out Discontinue IV empirical antibiotic Zosyn, received antibiotics for 7 days Attestations Medical Necessity Statement*: Continue ICU management Time Spent in Patient Care: 20mins Coding Level of Care Code Acute [place] Boatman for g Fwd Diagnoses Swelling of right upper extremity M79.89 Anorexia R63.0 Goals of care, counseling/discussion Z71.89 Lung mass R91.8 Hilar mass R91.8 Hypoxia R09.02 COPD exacerbation J44.1 COVID-19 U07.1 Sclerodactyly L94.3 Hypoxia R09.02 Pulmonary hypertension I27.20 Abdominal aortic aneurysm I71.4 Presence of rupture: without rupture
--- NOTE | 2021-05-30 13:05 | XR_ITS ---
WS: [id number] Exam: XR chest 1V portable [id number] Date/Time of Exam: 05/30/2021 1:08 PM Reason For Exam: Hypoxia Comparison 05/27/2021. Infiltrates in the mid and lower left lung have improved since previous study. There is still right l ower lobe atelectasis and/or infiltrate. Heart size is normal. The mediastinal silhouette is normal i n contour. No pneumothorax. Probable small right pleural effusion. Regional bony elements are intact. Monitoring leads superimpose the chest. XR/XR chest 1V portable [id number] IMPRESSION: 1. Right lower lobe atelectasis and/or infiltrate. Unchanged. 2. Improving infiltrates in the mid and lower left lung since prior study. 3. Small right-sided pleural effusion noted
[2021-05-30] MEDS: dexmedeTOMIDine 0.9 % NaCL 400 MCG/100 ML PREMIX IV (13:32)
--- NOTE | 2021-05-30 14:33 | PC.SOCIAL ---
IMM not updated IMM not updated as patient isn't accepted to dc in the next 24-48 hours.
--- NOTE | 2021-05-30 16:49 | PC.NURSE ---
Educated patient family on appropriate PPE and use of PPE while visiting COVID positive patient. Patient family in room with mask off of face. Educated patient family on risks. Educated patient family on need for patient restraints.
--- NOTE | 2021-05-30 17:36 | CTR_ITS ---
PROCEDURE INFORMATION: Exam: CT Abdomen And Pelvis Without Contrast Exam date and time: 05/30/2021 10:45 PM Age: 66 years old Clinical indication: Condition or disease; Primary cancer: Stage 3 lung cancer TECHNIQUE: Imaging protocol: Computed tomography of the abdomen and pelvis without contrast. Radiation optimization: All CT scans at this facility use at least one of these dose optimization techniques: automated exposure control; mA and/or kV adjustment per patient size (includes targeted exams where dose is matched to clinical indication); or iterative reconstruction. COMPARISON: CT abdomen pelvis wo/w [id number] 11/29/2019 12:22 PM RADIATION DOSE METRICS: Total DLP (mGy-cm): 1435.09 FINDINGS: Liver: There are multiple hypodensities in the liver which are not well defined on the current noncontrast CT, with several lesions likely confluent. Appearance indicates extensive hepatic metastatic disease. Gallbladder and bile ducts: Cholecystectomy. Pancreas: The pancreas is normal. Spleen: The spleen is normal. Adrenal glands: Left adrenal nodule is unchanged. Kidneys and ureters: There is no evidence of hydronephrosis. Calcifications at the left renal hilum are felt to be atherosclerotic. Stomach and bowel: The stomach is normal. There is apparent mural thickening involving the distal ascending colon, possibly due to nondistention, but correlate with clinical information regarding colitis. Appendix: A normal appendix is identified. Intraperitoneal space: No free fluid. No free air. Vasculature: There is an infrarenal abdominal aortic aneurysm which measures 3.8 cm. This appears minimally increased from 3.6 cm on 11/29/2019. Lymph nodes: No lymphadenopathy is seen. Urinary bladder: A Suarez catheter is in the bladder. Air within the bladder, likely post procedural. No intrinsic bladder abnormality detected. Reproductive: Unremarkable as visualized. Bones/joints: Spinal and hip degenerative changes are noted.No destructive osseous lesions are identified. No acute fracture is seen. Soft tissues: Unremarkable. CT/CT abdomen pelvis wo con [id number] IMPRESSION: 1. Findings of hepatic metastatic disease. 2. Infrarenal abdominal aortic aneurysm, minimally increased compared to 11/29/2019. 3. Stable left adrenal nodule, likely adenoma. 4. Question segmental colitis. Correlate with clinical information.
--- NOTE | 2021-05-30 17:36 | CTR_ITS ---
PROCEDURE INFORMATION: Exam: CT Head Without Contrast Exam date and time: 05/30/2021 10:41 PM Age: 66 years old Clinical indication: Altered mental status/memory loss; Patient HX: Delirium TECHNIQUE: Imaging protocol: Computed tomography of the head without contrast. Radiation optimization: All CT scans at this facility use at least one of these dose optimization techniques: automated exposure control; mA and/or kV adjustment per patient size (includes targeted exams where dose is matched to clinical indication); or iterative reconstruction. COMPARISON: No relevant prior studies available. RADIATION DOSE METRICS: Total DLP (mGy-cm): 958.92 FINDINGS: Brain: Normal. No hemorrhage. Unremarkable white matter. No mass effect. Cerebral ventricles: No ventriculomegaly. Paranasal sinuses: There is some mucosal thickening and a mucous retention cyst in the left maxillary antrum Mastoid air cells: Visualized mastoid air cells are well aerated. Bones/joints: Unremarkable. No acute fracture. Soft tissues: Unremarkable. CT/CT head wo con* [id number] IMPRESSION: No acute intracranial finding.
[2021-05-31] VITALS (37 sets, daily range): BP systolic 98–136; BP diastolic 62–87; PULSE 80–102; RESP 14–44; TEMP 36.1–37.2; O2SAT 87–94
[2021-05-31] MEDS: ipratropium-albuterol 3 mL Neb INHALATION ×4 (03:21→20:17)
[2021-05-31] MEDS: acetylcysteine 200 mg/mL SDV 4 mL 100 MG INHALATION ×4 (03:21→20:17)
[2021-05-31 03:49] LABS: ABG PCO2 39.5 mmHg (35-45); ABG PH Result 7.43 (7.35-7.45); Alveolar-Arterial Oxygen Gradi 48.8 mmHg (5-10); Arterial Blood Gas Hematocrit 35.6 % (37-47); Base Excess ABG 1.8 mmol/L (-2.0-2.0); Blood Gas Allen Test Pos; Blood Gas Sample Site Radial, right; Blood Gas Sample Type Arterial; Carboxyhemoglobin < 0.0 %THgb (0.4-20.1); HCO3 ABG 26.2 mmol/L (22-26); HGB O2 Sat 93.2 % (95-100); Ionized Calcium Level - ABG 1.1 mmol/L (1.1-1.4); Methemoglobin 0.9 % (0.4-1.5); Oxygen Device NC; Oxygen Saturation ABG 93.9; PO2 ABG 73.1 mmHg (80.0-100.0); Potassium Level - ABG 3.8 mmol/L (3.5-5.0); Total Hemoglobin 11.6 g/dL (12-16)
--- NOTE | 2021-05-31 06:00 | PC.NURSE ---
Shift Note Frequent safety and comfort rounds continue. Orders and/or nursing care completed as indicated. Patient monitored for response to intervention and treatment(s). Education provided includes CT scan and heated high flow. Patient needs reinforcement teaching. Patient had an uneventful shift, no complaints of pain overnight. Took patient to CT with assistance from staff, vitals WNL upon transport. Remains on heated high flow 50L and 70% FiO2. Redness noted to sacrum, right arm and bilateral legs are edematous. Frequently turned and repositioned patient with help from staff throughout night. Ms. Muir noted to be very weak, did not express any thoughts of self harm overnight. Will continue to monitor.
[2021-05-31 07:55] LABS: Basophils % 0.3 %; Hemoglobin 12.7 g/dL (11.5-15.3); Lymphocytes # 0.8 10^3/uL (0.8-4.8); Lymphocytes % 6.8 %; Mean Corpuscular HGB Conc 32.6 g/dL (30.0-36.0); Mean Corpuscular Hemoglobin 35.1 pg (28.0-34.0); Mean Corpuscular Volume 107.7 fl (81-99); Mean Platelet Volume 11.3 fL (7.4-10.4); Monocytes # 0.4 10^3/uL (0.2-0.9); Monocytes % 3.4 %; Neutrophils # 10.21 10^3/uL (1.8-7.7); Neutrophils % 88.1 %; Nucleated Red Blood Cells % 0.3 %; Platelet Count 221 10^3/cmm (130-400); Red Blood Count 3.62 10^6/uL (4.1-5.3); Red Cell Distribution Width 14.5 % (12.1-15.1); White Blood Count 11.6 10^3/uL (4.0-10.0)
[2021-05-31] MEDS: budesonide 0.5 mg/2 mL Neb INHALATION ×2 (08:02→20:17)
[2021-05-31 08:09] LABS: Blood Urea Nitrogen 35 mg/dL (8-23); Calcium 8.8 mg/dL (8.5-10.5); Carbon Dioxide 30 mmol/L (22-29); Chloride 94 mmol/L (98-107); Glomerular Filtration Rate 223.3 mL/min (90-130); Glucose 101 mg/dL (65-115); Osmolality Calculated 290 mOsm/kg (285-295); Sodium 136 mmol/L (136-145)
[2021-05-31 08:15] LABS: Anion Gap 15.2 (5-19); Potassium 3.2 mmol/L (3.5-5.1)
[2021-05-31] MEDS: dexamethasone 4 mg Tablet 6 MG PO (08:25)
[2021-05-31] MEDS: pantoprazole DR 40 mg Tablet PO (08:26)
[2021-05-31] MEDS: guaiFENesin 600 mg Tablet PO ×2 (08:26→17:41)
[2021-05-31] MEDS: morphine 4 mg/mL SDV 1 mL 2 MG IVP ×2 (12:12→20:58)
--- NOTE | 2021-05-31 12:38 | PM.PN ---
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 Patient is not having any diarrhea, afebrile no leukocytosis Potassium 3.2 1 bowel movement 05/31 Plan for PICC line placement today and start TPN she has not eaten well in the last 4 to 5 days appreciate dietary recommendations Vitals/I&O/Wt Last Vital Signs Temp 98.9 F 05/31/21 07:30 Pulse 93 05/31/21 11:04 Resp 20 H 05/31/21 12:12 BP 129/72 05/31/21 08:00 Pulse Ox 87 L 05/31/21 11:23 05/30/21 05/31/21 05/31/21 22:59 06:59 14:59 Intake Total 110.787 / 160.808 200 / 360.808 Output Total 450 / 450 350 / 800 Balance -339.213 / -289.192 -150 / -439.192 Weight last 48 hrs Weight 84.623 kg Physical Exam Narrative: Clinically patient looks dehydrated Malnourished Dry cracked lips Not willing to eat Currently on heated high flow 65% FiO2 Right arm swelling has not worsened No signs of JVD Coarse rhonchi with crackles bilaterally Abdomen soft No signs of edema of legs Awake and alert No focal deficits EOMI, PERRLA Cooperative during my evaluation Urinary Catheter Management: Suarez: Cath Placed During This Visit: yes Reason for Continuing Indwelling Catheter: Accurate Measurement of Urinary Output in Critically Ill Patients Urinary Catheter Date of Insertion: 05/23/21 Urinary Catheter Time of Insertion: 17:21 Data : 05/31/21 07:40 05/31/21 07:40 A&P Assessment and plan (1) Metastatic cancer to liver: Status: Acute (2) Swelling of right upper extremity: Status: Acute (3) Anorexia: Status: Acute (4) Goals of care, counseling/discussion: Status: Acute (5) Lung mass: Status: Acute (6) Hilar mass: Status: Acute (7) Hypoxia: Status: Acute (8) COVID-19: Status: Acute (9) COPD exacerbation: Status: Acute (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 Turpin for liver biopsy which he will plan for tomorrow Today we will do ultrasound I have spoken with Dr. Turpin today Lung mass, COVID-19, hypoxia Currently FiO2 fluctuate between 60 to 65% This most likely stage IV cancer with liver metastases Family updated Delirium related to ICU stay and COVID-19 and dehydration Delirium seems to be improving however currently she is on Precedex 0.1 Hold DVT prophylaxis for PICC line placement and liver biopsy Patient is full code Continue baricitinib, continue Decadron Soft mechanical diet IV prophylactic antibiotic coverage has been deescalated to Levaquin p.o. regimen Patient has been afebrile no leukocytosis, Attestations Medical Necessity Statement*: Continue ICU management Time Spent in Patient Care: 20mins Coding Level of Care Code Acute Security Investigator for g Fwd Diagnoses Metastatic cancer to liver C78.7 Swelling of right upper extremity M79.89 Anorexia R63.0 Goals of care, counseling/discussion Z71.89 Lung mass R91.8 Hilar mass R91.8 Hypoxia R09.02 COVID-19 U07.1 COPD exacerbation J44.1 Sclerodactyly L94.3 Systemic sclerosis with limited cutaneous involvement M34.9
[2021-05-31 13:57] LABS: INR 1.04 (0.8-1.2)
[2021-05-31 13:58] LABS: Fibrinogen 255 mg/dL (174-498)
[2021-05-31 14:21] LABS: Partial Thromboplastin Time > 250.0 SECONDS (23.9-36.7)
[2021-05-31 14:34] LABS: Platelet Count 221 10^3/cmm (130-400)
--- NOTE | 2021-05-31 15:14 | XRR_ITS ---
PROCEDURE INFORMATION: Exam: XR Chest Exam date and time: 05/31/2021 3:23 PM Age: 66 years old Clinical indication: Device placement; Picc; Additional info: Picc placement TECHNIQUE: Imaging protocol: XR of the chest. Views: 1 view. COMPARISON: CR XR chest 1V portable [id number] 05/30/2021 1:15 PM FINDINGS: Tubes, catheters and devices: Several radiographs demonstrates repositioning of the right PICC line. The final radiograph demonstrates the PICC line looping within the right brachiocephalic vein and terminating in the proximal most aspect of the right internal jugular vein. Lungs: Left basilar scarring. No consolidation. Pleural spaces: No pleural effusion. No pneumothorax. Heart/Mediastinum: Similar cardiomegaly. Bones/joints: Unremarkable. XR/XR chest 1V portable [id number] IMPRESSION: Several radiographs demonstrate repositioning of the right PICC line. The final radiograph demonstrates the PICC line looping within the right brachiocephalic vein and terminating in the proximal most aspect of the right internal jugular vein.
--- NOTE | 2021-05-31 16:25 | PC.NURSE ---
MIDLINE RIGHT arm placed.
[2021-05-31] MEDS: acetaminophen 325 mg Tablet 650 MG PO (20:51)
[2021-05-31] MEDS: mirtazapine 15 mg Tablet PO (20:51)
[2021-06-01] VITALS (28 sets, daily range): BP systolic 90–138; BP diastolic 60–91; PULSE 82–99; RESP 13–23; TEMP 36.6–36.9; O2SAT 89–94
[2021-06-01] MEDS: acetylcysteine 200 mg/mL SDV 4 mL 100 MG INHALATION ×4 (03:02→20:51)
[2021-06-01] MEDS: ipratropium-albuterol 3 mL Neb INHALATION ×4 (03:02→20:51)
[2021-06-01 03:44] LABS: ABG PCO2 53.8 mmHg (35-45); ABG PH Result 7.44 (7.35-7.45); Arterial Blood Gas Hematocrit 38.2 % (37-47); Base Excess ABG 10.2 mmol/L (-2.0-2.0); Blood Gas Allen Test Pos; Blood Gas Operator Identificat JB; Blood Gas Sample Site Radial, right; Blood Gas Sample Type Arterial; HCO3 ABG 36.2 mmol/L (22-26); Oxygen Device HAG; PO2 ABG 61.6 mmHg (80.0-100.0)
[2021-06-01 04:17] LABS: Basophils % 0.1 %; Hematocrit 35.2 % (37.0-47.0); Hemoglobin 11.2 g/dL (11.5-15.3); Lymphocytes # 0.7 10^3/uL (0.8-4.8); Lymphocytes % 8.1 %; Mean Corpuscular HGB Conc 31.8 g/dL (30.0-36.0); Mean Corpuscular Hemoglobin 34.7 pg (28.0-34.0); Mean Platelet Volume 11.3 fL (7.4-10.4); Monocytes # 0.5 10^3/uL (0.2-0.9); Neutrophils # 7.83 10^3/uL (1.8-7.7); Neutrophils % 85.5 %; Nucleated Red Blood Cells % 0.4 %; Platelet Count 242 10^3/cmm (130-400); Red Blood Count 3.23 10^6/uL (4.1-5.3); Red Cell Distribution Width 14.5 % (12.1-15.1); White Blood Count 9.2 10^3/uL (4.0-10.0)
[2021-06-01 04:34] LABS: INR 1.11 (0.8-1.2)
[2021-06-01 04:49] LABS: Anion Gap 11.9 (5-19); Blood Urea Nitrogen 35 mg/dL (8-23); Calcium 8.7 mg/dL (8.5-10.5); Carbon Dioxide 34 mmol/L (22-29); Chloride 99 mmol/L (98-107); Glomerular Filtration Rate 223.3 mL/min (90-130); Glucose 92 mg/dL (65-115); Osmolality Calculated 300 mOsm/kg (285-295); Potassium 3.9 mmol/L (3.5-5.1); Sodium 141 mmol/L (136-145)
[2021-06-01] MEDS: dexmedeTOMIDine 0.9 % NaCL 400 MCG/100 ML PREMIX IV (07:15)
[2021-06-01] MEDS: budesonide 0.5 mg/2 mL Neb INHALATION ×2 (08:00→20:51)
--- NOTE | 2021-06-01 08:23 | PC.SOCIAL ---
IMM Not Updated Pg. 2 of IMM not updated. Patient not anticipated to d/c within the next 48hours.
--- NOTE | 2021-06-01 08:42 | PC.NURSE ---
Spoke with son, Timi, who is NOK and he declined to have liver biopsy done. Confirmed this with him twice. MD and radiology notified.
[2021-06-01] MEDS: nystatin 100,000 unit/mL UDC 5 mL 500000 UNIT PO ×4 (08:44→20:57)
[2021-06-01] MEDS: pantoprazole DR 40 mg Tablet PO (08:45)
[2021-06-01] MEDS: dexamethasone 4 mg Tablet 6 MG PO (08:45)
[2021-06-01] MEDS: guaiFENesin 600 mg Tablet PO ×2 (08:45→17:02)
--- NOTE | 2021-06-01 09:09 | PC.NUTR ---
Received consult for TPN yesterday. Filled out form and left it in Pt's chart for MD to view and decide if appropriate and when necessary. Unable to do PICC line yesterday, Pt currently has Midline. Recommend consideration of Clinimix 5/20 starting @ 13 ml/hr, increasing 10 ml/hr Q8H as tolerated until goal rate of 83 ml/hr is reached, with standard electrolytes and multivitamins 10 mls/day. Details in RD assessment.
--- NOTE | 2021-06-01 09:22 | PM.PN ---
Subjective Subjective: This morning family decided to hold off on liver biopsy, I have updated radiologist, however she is still full code, will touch base with correctional counselor/case manager to see if she will be accepted at [facility] currently FiO2 is between 60 to 65% she is saturating 92 onset settings Still fatigued lethargic, poor p.o. intake Midline placed yesterday, TPN to be initiated today Vitals/I&O/Wt Last Vital Signs Temp 97.8 F 06/01/21 09:00 Pulse 99 06/01/21 09:00 Resp 16 06/01/21 09:00 BP 115/80 06/01/21 09:00 Pulse Ox 89 L 06/01/21 09:00 05/31/21 06/01/21 06/01/21 22:59 06:59 14:59 Intake Total 100 / 100 142.821 / 142.821 Output Total 150 / 150 100 / 250 Balance -50 / -50 -100 / -150 142.821 / 142.821 Weight last 48 hrs Weight 86.545 kg Physical Exam Narrative: Patient fatigue lethargic However able to answer a few of my questions Opens eyes to verbal command Nonfocal neuro exam Swelling of right arm is is improving Right arm midline Looks dehydrated Malnourished Bilateral breath sounds with coarse rhonchi and crackles Concentrated urine No new focal deficit Noted oral thrush Urinary Catheter Management: Suarez: Cath Placed During This Visit: yes Reason for Continuing Indwelling Catheter: Accurate Measurement of Urinary Output in Critically Ill Patients Urinary Catheter Date of Insertion: 05/23/21 Urinary Catheter Time of Insertion: 17:21 Data : 06/01/21 03:40 06/01/21 03:40 A&P Assessment and plan (1) Metastatic cancer to liver: Status: Acute (2) Stage IV squamous cell carcinoma of lung: Status: Acute (3) Swelling of right upper extremity: Status: Acute (4) Anorexia: Status: Acute (5) Goals of care, counseling/discussion: Status: Acute (6) Lung mass: Status: Acute (7) Hypoxia: Status: Acute (8) COVID-19: Status: Acute (9) COPD exacerbation: Status: Acute (10) Depression: Status: Acute (11) Delirium: Status: Acute Plan COVID-19 related hypoxia Underlying stage IV lung cancer with mets to liver Family decided against liver biopsy Radiologist notified Family do not want to pursue histopathological diagnosis, or chemo/radiotherapy FiO2 60 to 65% currently saturating 90 to 92%, will touch [facility] with [facility] more time today we will update correctional counselor/case manager Spoke to her son this morning ICU delirium Improved slightly However she still tries to rip off her oxygen, requiring wrist restraints unfortunately Dehydration and anorexia Malnourished TPN to be started today, midline placed 05/31 COVID-19 related hypoxia Continue baricitinib and Decadron Finished empirical IV antibiotic coverage, afebrile, no leukocytosis, leukopenia improved Transition to p.o. Levaquin Guarded prognosis TPN Poor p.o. intake Soft mechanical diet Oral thrush: Started nystatin today Continue Mucomyst, mucolytic's Along DuGudeliab Family has been updated on daily basis, one-to-one meeting with her son daily and update her daughter and her aunt over the phone DVT prophylaxis: Lovenox Attestations Medical Necessity Statement*: [facility] to [facility] Time Spent in Patient Care: 35min Coding Level of Care Code Acute Pan Reclaim Processor for sonya Fwjavier Diagnoses Metastatic cancer to liver C78.7 Stage IV squamous cell carcinoma of lung C34.90 Swelling of right upper extremity M79.89 Anorexia R63.0 Goals of care, counseling/discussion Z71.89 Lung mass R91.8 Hypoxia R09.02 COVID-19 U07.1 COPD exacerbation J44.1 Depression F32.A Delirium R41.0
[2021-06-01] MEDS: AA-Dex 5%-20% w/Lytes 1,000 ML with multivitamin inj 10 ML 13 ML IV (11:02)
--- NOTE | 2021-06-01 11:54 | PC.CHAP ---
Pastoral Care Encounter/Spiritual Assessment Type of Contact [] Declined lumber material handler visit [] Patient/Family/Request visit [] Outpatient visit [] Follow-up visit [] Physician referral [] Code/Alert [x] Routine visit [] Staff referral [] Actively dying [] Patient sleeping [] Family support [] [] Out of room [] Palliative care [] [] Receiving care in room [] Pre-surgical visit [] Trauma [] Long length of stay [x] ICU visit [] Other: Relational/Emotional Strength [] Patient feels connected with others/family/visitors/staff [] Distress [] Loneliness/isolation [] Abandonment Spirituality of Patient [] Person of Flores [] Attends Scientologist of their [place] [] Believes in Prayer [] Reads Bible or Christianity materials [] There are Spiritual issues to be addressed Combat Systems Engineer Interventions [x] Prayer [] Active listening [] Non-anxious presence [] Spiritual/emotional support [] Crisis/trauma care [] Spiritual counseling [] Bereavement support [] Provided bereavement packet [] Provided Bible/devotional materials [] Provided toy/stuffed animal, coloring book to patient or family member [] Provided Communion [] Anointing/[place] [] Salvation x] Completed spiritual assessment [] Other: Impact on Illness or Injury [] Angry [] Fearful [] Anxious [] Often cries [] Exhaustion [] Unable to work [] Unable to attend gnosticist [] Unable to walk/stand [] Unable to read [] Unable to drive [] Unable to eat/drink [] Unable to sleep [] Unable to be with family [] Patient intubated [] Other: Summary Time spent with patient
[2021-06-01] MEDS: morphine 4 mg/mL SDV 1 mL 2 MG IVP ×2 (13:08→17:11)
--- NOTE | 2021-06-01 18:02 | PC.NURSE ---
Shift Note Frequent safety and comfort rounds continue. Orders and/or nursing care completed as indicated. Patient monitored for response to intervention and treatment(s). Education provided includes treatment plan, medications. Pt family verbalizes understanding. Pt will only take some sips of gatorade. Refused all meals. TPN infusing per orders. VSS. HHFNC 50L/65%. Family verbalized desire to continue full code until Sunday. Will continue to monitor.
[2021-06-01] MEDS: mirtazapine 15 mg Tablet PO (20:57)
--- NOTE | 2021-06-01 21:07 | PC.NURSE ---
More awake and answering questions appropriately. PO meds taken w/o difficulty. Place back on Precedex.
[2021-06-02] VITALS (20 sets, daily range): BP systolic 86–117; BP diastolic 60–76; PULSE 76–112; RESP 14–31; TEMP 36.7–37.1; O2SAT 88–97
[2021-06-02] MEDS: ipratropium-albuterol 3 mL Neb INHALATION ×4 (02:26→20:14)
[2021-06-02] MEDS: acetylcysteine 200 mg/mL SDV 4 mL 100 MG INHALATION ×3 (02:26→14:04)
[2021-06-02 03:31] LABS: Basophils % 0.2 %; Hematocrit 35.9 % (37.0-47.0); Hemoglobin 11.5 g/dL (11.5-15.3); Lymphocytes # 0.4 10^3/uL (0.8-4.8); Lymphocytes % 4.5 %; Mean Corpuscular Hemoglobin 36.1 pg (28.0-34.0); Mean Corpuscular Volume 112.5 fl (81-99); Mean Platelet Volume 10.9 fL (7.4-10.4); Monocytes # 0.4 10^3/uL (0.2-0.9); Monocytes % 4.4 %; Neutrophils # 8.26 10^3/uL (1.8-7.7); Neutrophils % 89.9 %; Nucleated Red Blood Cells # 0.1 /100WBC; Nucleated Red Blood Cells % 0.5 %; Platelet Count 221 10^3/cmm (130-400); Red Blood Count 3.19 10^6/uL (4.1-5.3); Red Cell Distribution Width 14.6 % (12.1-15.1); White Blood Count 9.2 10^3/uL (4.0-10.0)
[2021-06-02 03:58] LABS: Magnesium 2.2 mg/dL (1.7-2.3)
[2021-06-02 03:59] LABS: Anion Gap 12.9 (5-19); Blood Urea Nitrogen 37 mg/dL (8-23); Calcium 8.9 mg/dL (8.5-10.5); Carbon Dioxide 32 mmol/L (22-29); Chloride 101 mmol/L (98-107); Glomerular Filtration Rate 356.5 mL/min (90-130); Glucose 154 mg/dL (65-115); Osmolality Calculated 306 mOsm/kg (285-295); Potassium 3.9 mmol/L (3.5-5.1); Sodium 142 mmol/L (136-145)
[2021-06-02] MEDS: budesonide 0.5 mg/2 mL Neb INHALATION ×2 (08:01→20:14)
[2021-06-02] MEDS: nystatin 100,000 unit/mL UDC 5 mL 500000 UNIT PO ×2 (09:06→20:06)
[2021-06-02] MEDS: dexamethasone 4 mg Tablet 6 MG PO (09:06)
[2021-06-02] MEDS: guaiFENesin 600 mg Tablet PO (09:07)
[2021-06-02] MEDS: pantoprazole DR 40 mg Tablet PO (09:07)
[2021-06-02] MEDS: sodium chloride 0.9% 1,000 ML 999 ML IV (09:07)
--- NOTE | 2021-06-02 14:31 | PM.PN ---
Subjective Subjective: Low urine output, blood pressure is low, given 1 L normal saline bolus without significant provement, will add maintenance fluid, TPN started yesterday Patient is very dehydrated Malnourished Significant weight loss Able to open eyes to verbal command however very lethargic and fatigued Oral thrush noted Dry cracked lips Dr. Zamorano could not assess her neurological status because of the use of Precedex, cancel psych consult Vitals/I&O/Wt Last Vital Signs Temp 98.0 F 06/02/21 12:00 Pulse 83 06/02/21 12:00 Resp 18 06/02/21 12:00 BP 93/65 06/02/21 12:00 Pulse Ox 93 06/02/21 08:00 06/01/21 06/02/21 06/02/21 22:59 06:59 14:59 Intake Total 196.037 / 338.858 174.8 / 513.658 36.853 / 36.853 Output Total 200 / 200 175 / 375 Balance -3.963 / 138.858 -0.2 / 138.658 36.853 / 36.853 Weight last 48 hrs Weight 83.37 kg Weight 86.545 kg Physical Exam Narrative: Patient is very fatigued and lethargic Able to move her extremities Nonfocal neuro exam Oral thrush Dry cracked lips Able to follow commands however drowsy Currently on Precedex Nondistended abdomen No signs of edema Dry cracked lips Signs of dehydration Low urine output Coarse crackles with upper airway secretions noted Urinary Catheter Management: Suarez: Cath Placed During This Visit: yes Reason for Continuing Indwelling Catheter: Accurate Measurement of Urinary Output in Critically Ill Patients Urinary Catheter Date of Insertion: 05/23/21 Urinary Catheter Time of Insertion: 17:21 Data : 06/02/21 03:17 06/02/21 03:17 A&P Assessment and plan (1) Delirium: Status: Acute (2) Depression: Status: Acute (3) Metastatic cancer to liver: Status: Acute (4) Swelling of right upper extremity: Status: Acute (5) Anorexia: Status: Acute (6) Goals of care, counseling/discussion: Status: Acute (7) Lung mass: Status: Acute (8) Hilar mass: Status: Acute (9) Hypoxia: Status: Acute (10) COVID-19: Status: Acute (11) COPD exacerbation: Status: Acute (12) Hypotension: Status: Acute (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 Plan Persistent hypoxia related to COVID-19 with underlying stage IV lung cancer with mets to liver Currently on 65% FiO2 50 L Patient is malnourished, dehydrated significant weight loss Hypotension low urine output secondary to poor p.o. intake TPN started yesterday 06/01 via midline I will start maintenance fluids today Patient is afebrile Has oral thrush started nystatin yesterday She has finished more than 10 days of antibiotics, antibiotics discontinued COVID-19: Discontinue Decadron, baricitinib 3 more doses left No signs of PE No signs of superimposed bacterial infection Conscious sedation with Precedex, added Seroquel, try to wean off Precedex Coarse rhonchi continue Mucomyst, N-acetylcysteine, DuoNeb, Family is leaning towards initiating comfort care over the weekend, I spoke with Traci yesterday Patient is full code until this weekend, family is strongly considering comfort care over this weekend, She has spent almost 2 weeks in the hospital Her symptoms started 2 weeks before her presentation to the hospital, she can come off isolation Attestations Medical Necessity Statement*: Continue icu management, Time Spent in Patient Care: 20mins Coding Level of Care Code Acute Chief Librarian Music Department for Chg Fwd Diagnoses Delirium R41.0 Depression F32.A Metastatic cancer to liver C78.7 Swelling of right upper extremity M79.89 Anorexia R63.0 Goals of care, counseling/discussion Z71.89 Lung mass R91.8 Hilar mass R91.8 Hypoxia R09.02 COVID-19 U07.1 COPD exacerbation J44.1 Hypotension I95.9 Sclerodactyly L94.3
--- NOTE | 2021-06-02 14:40 | XR_ITS ---
WS: [id number] Exam: XR chest 1V portable [id number] Date/Time of Exam: 06/02/2021 2:46 PM Reason For Exam: hypoxia Residual interstitial infiltrate in the mid and lower left lung. Probable right basal pleural effusio n. Atelectasis right lower lobe. No pneumothorax. Heart size is top limits normal. A right-sided PICC line appears to end in the expected region of the right subclavian vein. Regional bony elements are intact. XR/XR chest 1V portable [id number] IMPRESSION: 1. Residual infiltrate in the mid and lower left lung. 2. Right lower lobe atelectasis and probable right basal pleural effusion. 3. Right-sided PICC line probably ending in the right subclavian vein.
[2021-06-02] MEDS: sodium chloride 0.9% 1,000 ML 100 ML IV ×2 (16:01→20:54)
--- NOTE | 2021-06-02 16:38 | PC.NURSE ---
Pt update Pt has not had a good appetite today. Pt did require a dose of IV zofran after having some dry heaves. Pt did have low back pain, the lidocaine patch has helped. Pt has been turning from back to right side on their own. Drain output of 100ml dark green. Pt on RA.
[2021-06-02] MEDS: mirtazapine 15 mg Tablet PO (20:06)
[2021-06-02] MEDS: AA-Dex 5%-20% w/Lytes 1,000 ML with multivitamin inj 10 ML 53 ML IV (21:18)
[2021-06-03] VITALS (25 sets, daily range): BP systolic 95–129; BP diastolic 50–77; PULSE 92–108; RESP 14–33; TEMP 36.4–37.2; O2SAT 91–97
[2021-06-03] MEDS: ipratropium-albuterol 3 mL Neb INHALATION ×4 (03:01→20:25)
[2021-06-03 04:21] LABS: ABG PCO2 47.7 mmHg (35-45); ABG PH Result 7.45 (7.35-7.45); Arterial Blood Gas Hematocrit 32.6 % (37-47); Blood Gas Allen Test Pos; Blood Gas Operator Identificat JB; Blood Gas Sample Site Radial, right; Blood Gas Sample Type Arterial; Oxygen Device BIPAP; PO2 ABG 81.9 mmHg (80.0-100.0)
[2021-06-03] MEDS: acetaminophen 325 mg Tablet 650 MG PO ×2 (05:26→17:26)
[2021-06-03 06:20] LABS: Anion Gap 11.7 (5-19); Blood Urea Nitrogen 35 mg/dL (8-23); Calcium 8.4 mg/dL (8.5-10.5); Carbon Dioxide 28 mmol/L (22-29); Chloride 105 mmol/L (98-107); Glomerular Filtration Rate 356.5 mL/min (90-130); Glucose 151 mg/dL (65-115); Osmolality Calculated 303 mOsm/kg (285-295); Potassium 3.7 mmol/L (3.5-5.1); Sodium 141 mmol/L (136-145)
[2021-06-03] MEDS: budesonide 0.5 mg/2 mL Neb INHALATION ×2 (07:58→20:25)
[2021-06-03] MEDS: acetylcysteine 200 mg/mL SDV 4 mL 100 MG INHALATION ×3 (07:58→20:25)
--- NOTE | 2021-06-03 08:52 | PC.SOCIAL ---
IMM not updated IMM not updated as patient isn't expected to DC in the next 24-48 hours.
[2021-06-03] MEDS: quetiapine 25 mg Tablet PO ×2 (09:18→17:26)
[2021-06-03] MEDS: dexamethasone 4 mg Tablet 6 MG PO (09:18)
[2021-06-03] MEDS: nystatin 100,000 unit/mL UDC 5 mL 500000 UNIT PO ×4 (09:18→20:06)
[2021-06-03] MEDS: guaiFENesin 600 mg Tablet PO ×2 (09:18→17:26)
[2021-06-03] MEDS: pantoprazole DR 40 mg Tablet PO (09:18)
--- NOTE | 2021-06-03 11:51 | PC.CHAP ---
Pastoral Care Encounter/Spiritual Assessment Type of Contact [] Declined cement truck loader visit [] Patient/Family/Request visit [] Outpatient visit [] Follow-up visit [] Physician referral [] Code/Alert [] Routine visit [] Staff referral [] Actively dying [] Patient sleeping [] Family support [] [] Out of room [] Palliative care [] [] Receiving care in room [] Pre-surgical visit [] Trauma [] Long length of stay [] ICU visit [] Other: Relational/Emotional Strength [] Patient feels connected with others/family/visitors/staff [] Distress [] Loneliness/isolation [] Abandonment Spirituality of Patient [] Person of Flores [] Attends Restoration of their [place] [] Believes in Prayer [] Reads Bible or Church materials [] There are Spiritual issues to be addressed Beef Cattle Grazier Interventions [] Prayer [] Active listening [] Non-anxious presence [] Spiritual/emotional support [] Crisis/trauma care [] Spiritual counseling [] Bereavement support [] Provided bereavement packet [] Provided Bible/devotional materials [] Provided toy/stuffed animal, coloring book to patient or family member [] Provided Communion [] Anointing/[place] [] Salvation [] Completed spiritual assessment [] Other: Impact on Illness or Injury [] Angry [] Fearful [] Anxious [] Often cries [] Exhaustion [] Unable to work [] Unable to attend uatsdin [] Unable to walk/stand [] Unable to read [] Unable to drive [] Unable to eat/drink [] Unable to sleep [] Unable to be with family [] Patient intubated [] Other: Summary Time spent with patient
--- NOTE | 2021-06-03 13:30 | PM.PN ---
Subjective Subjective: Patient has a right midline Overnight required BiPAP for worsening hypoxia, currently on Precedex This morning we will give her a break from BiPAP to heated high flow 75% 50 L Extremely dehydrated malnourished patient She does have decubitus ulcer stage II left buttocks She had a bowel movement this morning Vitals/I&O/Wt Last Vital Signs Temp 99 F 06/03/21 08:00 Pulse 98 06/03/21 11:13 Resp 18 06/03/21 11:13 BP 119/77 06/03/21 08:00 Pulse Ox 92 06/03/21 11:13 06/02/21 06/03/21 06/03/21 22:59 06:59 14:59 Intake Total 1102.766 / 1400.319 309.1 / 1709.419 800 / 800 Output Total 600 / 600 Balance 1102.766 / 1400.319 -290.9 / 1109.419 800 / 800 Weight last 48 hrs Weight 83.915 kg Weight 83.37 kg Physical Exam Narrative: Very lethargic and fatigued Able to respond to verbal questions to some extent Nonfocal neuro exam I did not appreciate facial droop Her cough is very weak Does not have energy to suck on the straw Abdomen is soft Stage II decubitus ulcer left buttocks Legs without edema EOMI, PERRLA Oral thrush Discolored tongue Coarse rhonchi with crackles, diffuse, poor respiratory efforts Diminished airflow Urinary Catheter Management: Suarez: Cath Placed During This Visit: yes Reason for Continuing Indwelling Catheter: Accurate Measurement of Urinary Output in Critically Ill Patients Urinary Catheter Date of Insertion: 05/23/21 Urinary Catheter Time of Insertion: 17:21 Data : 06/02/21 03:17 06/03/21 04:50 A&P Assessment and plan (1) Delirium: Status: Acute (2) Depression: Status: Acute (3) Metastatic cancer to liver: Status: Acute (4) Swelling of right upper extremity: Status: Acute (5) Anorexia: Status: Acute (6) Goals of care, counseling/discussion: Status: Acute (7) Lung mass: Status: Acute (8) Hilar mass: Status: Acute (9) Hypoxia: Status: Acute (10) COVID-19: Status: Acute (11) COPD exacerbation: Status: Acute (12) Systemic sclerosis with limited cutaneous involvement: Status: Acute (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 (14) Decubitus ulcer: Status: Acute Plan COVID-19 related hypoxia Underlying lung cancer with mets to liver Patient and family do not want to pursue histopathological diagnosis Did not show signs of improvement since admission Anorexia Getting dehydrated malnourished Develop stage II left buttocks ulcer during hospitalization Frequent change in position, wound care, dry dressing Does not need debridement Discontinue Decadron and baricitinib Status post antibiotic course Patient did not spike fever, no signs of superimposed bacterial flexion No signs of PE No signs of pneumothorax Persistent infiltrate evident on x-ray Patient has a right sided midline for TPN Hypotension related to dehydration currently on IV fluids along TPN, low urine output, will give her a dose of Lasix today DNR/DNI Family updated Family leaning towards comfort care however she will be treated as full code until this and this Sunday family's plan to comment to decide about comfort care measures Patient's delirium is secondary to ICU and underlying COVID-19 CT head did not show mets Currently on soft mechanical diet TPN DVT prophylaxis Lovenox She is on mirtazapine and Seroquel currently on Precedex Oral thrush: Nystatin Off isolation Attestations Medical Necessity Statement*: Continue ICU management Time Spent in Patient Care: 20mins Coding Level of Care Code Acute Shotblaster for Chg Fwd Diagnoses Delirium R41.0 Depression F32.A Metastatic cancer to liver C78.7 Swelling of right upper extremity M79.89 Anorexia R63.0 Goals of care, counseling/discussion Z71.89 Lung mass R91.8 Hilar mass R91.8 Hypoxia R09.02 COVID-19 U07.1 COPD exacerbation J44.1 Systemic sclerosis with limited cutaneous involvement M34.9 Sclerodactyly L94.3 Decubitus ulcer L89.90
[2021-06-03] MEDS: sodium chloride 0.9% 1,000 ML 100 ML IV ×2 (14:35→23:05)
[2021-06-03] MEDS: AA-Dex 5%-20% w/Lytes 1,000 ML with multivitamin inj 10 ML 73 ML IV (14:42)
--- NOTE | 2021-06-03 18:21 | PC.NURSE ---
Shift Note: Pt rested in be throughout shift She is lethargic. She does yell out her needs at time, Call light has been within reach throughout shift. She is too weak to suck on a straw, med cups used to give sips of water. She can still swallow tablets, one at a time. Precedex stopped this am around 1000. TPN has been increased twice this shift, now at goal rate of 83ml/hr. Left lung sounds auscultated coarse to expiratory wheezing this shift. She started the shift off on BiPAp at 70%, she is now on Heated high flow 75% and 50 liters. Urine output of 600ml. She has been incontinent of 2 large liquid BMs. She has 2 areas of pressury injuries: Mid back between her shoulder blades and her sacrum. Frequent safety and comfort rounds continue. Orders and/or nursing care completed as indicated. Patient monitored for response to intervention and treatment(s). Education provided includes morphine, TPN, turning to redudce pressure, seroquel, Mucinex and plan of care. Patient and/or visitor services representative verbalized understanding of plan of care and medications. Will continue to monitor.
[2021-06-03] MEDS: morphine 4 mg/mL SDV 1 mL 2 MG IVP (19:35)
[2021-06-03] MEDS: mirtazapine 15 mg Tablet PO (20:06)
--- NOTE | 2021-06-03 21:25 | PC.NURSE ---
O2 saturations decreased to 81%. Encouraged patient to cough and deep breath with continued decrease in O2 saturation. RT notified, placed on 100% NRB while transitioned back to bipap at 100% FIO2. O2 saturations currently 94%.
[2021-06-04] VITALS (29 sets, daily range): BP systolic 89–112; BP diastolic 56–68; PULSE 79–98; RESP 18–36; TEMP 36.6–36.7; O2SAT 95–98
[2021-06-04] MEDS: ipratropium-albuterol 3 mL Neb INHALATION ×4 (02:14→20:06)
[2021-06-04] MEDS: acetylcysteine 200 mg/mL SDV 4 mL 100 MG INHALATION ×3 (02:15→20:07)
[2021-06-04] MEDS: AA-Dex 5%-20% w/Lytes 1,000 ML with multivitamin inj 10 ML 83 ML IV (04:25)
[2021-06-04] MEDS: budesonide 0.5 mg/2 mL Neb INHALATION ×2 (08:19→20:07)
[2021-06-04] MEDS: nystatin 100,000 unit/mL UDC 5 mL 500000 UNIT PO ×3 (09:34→20:04)
[2021-06-04] MEDS: sodium chloride 0.9% 1,000 ML 100 ML IV (10:40)
[2021-06-04] MEDS: dexmedeTOMIDine 0.9 % NaCL 400 MCG/100 ML PREMIX IV (11:04)
--- NOTE | 2021-06-04 11:14 | PC.NURSE ---
pt removed off bipap attempt to sip from straw unable only small amts with some choking noted very anxious or restless .. restarted on precedex gtt per doctor
--- NOTE | 2021-06-04 11:27 | PM.PN ---
Subjective Subjective: Patient is fatigued and lethargic, she was asking for water, will give her short break from BiPAP, Precedex was off today, she was anxious asked ICU nurse to start Precedex back on, She was put on BiPAP this morning Dark urine noted in the bag Patient is very weak and lethargic cannot even take a sip of water Vitals/I&O/Wt Last Vital Signs Temp 97.7 F 06/03/21 20:00 Pulse 91 06/04/21 10:17 Resp 20 H 06/04/21 08:20 BP 102/62 06/04/21 04:00 Pulse Ox 95 06/04/21 10:17 06/03/21 06/04/21 06/04/21 22:59 06:59 14:59 Intake Total 443.067 / 2521.144 1606.933 / 4128.077 1000 / 1000 Output Total 550 / 550 275 / 825 Balance -106.933 / 5864.367 0267.933 / 3303.077 1000 / 1000 Weight last 48 hrs Weight 88.904 kg Weight 83.915 kg Physical Exam Narrative: Fatigue lethargic Currently on BiPAP 65% FiO2 Dehydrated malnourished TPN running IV fluids running at the bedside as well Dark concentrated urine Abdomen soft No signs of edema of legs Poor inspiratory efforts, weak cough Nonfocal neuro exam Able to follow verbal commands Abdomen nontender Stage II ulcer left buttocks Urinary Catheter Management: Suarez: Cath Placed During This Visit: yes Reason for Continuing Indwelling Catheter: Accurate Measurement of Urinary Output in Critically Ill Patients Urinary Catheter Date of Insertion: 05/23/21 Urinary Catheter Time of Insertion: 17:21 Data : 06/02/21 03:17 06/03/21 04:50 A&P Assessment and plan (1) Decubitus ulcer: Status: Acute (2) Delirium: Status: Acute (3) Depression: Status: Acute (4) Metastatic cancer to liver: Status: Acute (5) Right axillary swelling: Status: Acute (6) Anorexia: Status: Acute (7) Goals of care, counseling/discussion: Status: Acute (8) Lung mass: Status: Acute (9) Hilar mass: Status: Acute (10) Hypoxia: Status: Acute (11) COVID-19: Status: Acute (12) COPD exacerbation: Status: Acute (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 Plan Today my plan is to keep her in ICU on Precedex, she can be moved upstairs to [facility] once family is here on Sunday, will plan to turn off Precedex at that point and start comfort care We will keep her on morphine Ativan as needed She is getting TPN via a right-sided midline Afebrile Currently on BiPAP FiO2 65% Very fatigued and lethargic Poor inspiratory effort because of deconditioning ICU delirium no acute exacerbation Continue Seroquel Patient is full code until Sunday Attestations Medical Necessity Statement*: Plan to start comfort care comfort care on Sunday Time Spent in Patient Care: 20mins Coding Level of Care Code 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
[2021-06-04] MEDS: morphine 4 mg/mL SDV 1 mL 2 MG IVP (15:48)
[2021-06-04] MEDS: AA-Dex 5%-20% w/Lytes 1,000 ML with multivitamin inj 5 ML 83 ML IV (16:51)
--- NOTE | 2021-06-04 17:55 | NUR.SHIFT ---
Shift Note Frequent safety and comfort rounds continue. Orders and/or nursing care completed as indicated. Patient monitored for response to oxygen and bipap . Education provided includes oral care and cough ... family starting to arrive from out of town . aware of status Will continue to monitor.
[2021-06-04] MEDS: dexmedeTOMIDine 0.9 % NaCL 400 MCG/100 ML PREMIX 6.67 MCG IV (23:54)
[2021-06-05] VITALS (42 sets, daily range): BP systolic 83–120; BP diastolic 56–72; PULSE 36–129; RESP 0–43; TEMP 36.7; O2SAT 59–98
[2021-06-05] MEDS: morphine 4 mg/mL SDV 1 mL 2 MG IVP ×2 (00:36→06:11)
[2021-06-05] MEDS: dexmedeTOMIDine 0.9 % NaCL 400 MCG/100 ML PREMIX 6.67 MCG IV (01:46)
[2021-06-05] MEDS: ipratropium-albuterol 3 mL Neb INHALATION ×2 (03:01→08:17)
[2021-06-05] MEDS: acetylcysteine 200 mg/mL SDV 4 mL 100 MG INHALATION ×2 (03:01→08:17)
[2021-06-05] MEDS: AA-Dex 5%-20% w/Lytes 1,000 ML with multivitamin inj 5 ML 83 ML IV (05:03)
[2021-06-05] MEDS: budesonide 0.5 mg/2 mL Neb INHALATION (08:17)
--- NOTE | 2021-06-05 08:35 | PC.SOCIAL ---
IMM Not Updated Pg. 2 of IMM not updated. Patient not anticipated to d/c within the next 48hours.
[2021-06-05] MEDS: morphine 4 mg/mL SDV 1 mL IVP ×4 (13:28→14:24)
--- NOTE | 2021-06-05 14:00 | PM.MISC ---
Miscellaneous Note Note: After family meeting comfort care was initiated Patient is currently trying a lot of PVCs, getting hypoxic Comfort care orders have been placed Family at the bedside ICU nurse updated RT also updated Patient is showing signs of labored breathing Dehydrated Malnourished Cachectic Very fatigued and lethargic Able to understand and follow commands Comfort care started today
--- NOTE | 2021-06-05 14:25 | PC.NURSE ---
family here at bedside ativan given for nerves and morphine given for air hunger head of bed lowered at this time .. on comfort care
--- NOTE | 2021-06-05 15:17 | PC.NURSE ---
no resp and no blood pressure asystole
--- NOTE | 2021-06-05 16:12 | PM.DDS ---
Discharge Providers DDS Date of Admission: 05/19/21 00:27 Date Summary Completed: 06/05/21 Attending Provider at Admission: Jules Lennon Time of : 15:17 Attending Provider at Discharge: Silvia Foss MD Primary Care Provider: SUZAN Veras Diagnoses Hospital Diagnoses (1) Decubitus ulcer: (2) Delirium: (3) Depression: (4) Metastatic cancer to liver: (5) Right axillary swelling: (6) Anorexia: (7) Goals of care, counseling/discussion: (8) Lung mass: (9) Hilar mass: (10) Hypoxia: (11) COVID-19: (12) COPD exacerbation: (13) Sclerodactyly: Summary Date and Time of Date of : 06/05/21 Time of : 15:17 Summary Summary: 66-year female who was admitted for management evaluation of hypoxia related to COVID-19. Initially she was kept on nasal cannula, her hypoxia worsened, she required heated high flow, she was transitioned to ICU, CT scan showed spiculated mass in right lung with bilateral lymphadenopathy, she was started on baricitinib and Decadron, in ICU she remained on heated high flow with intermittent use of BiPAP, her hypoxia did not improve at all, she gradually deconditioned, her p.o. intake worsened, she became dehydrated, a midline was placed for TPN, family was kept updated on daily basis with one-to-one meeting and phone call to update. CTA chest rule out PE, patient experienced ICU delirium, she was trying to remove her high flow nasal cannula, unfortunately required Precedex, Seroquel and wrist restraints. Her ICU delirium improved with that regimen however her hypoxia and deconditioning did not improve at all. CT head unremarkable, however CT abdomen pelvis showed hepatic metastatic lesions. Family was updated about that metastatic lesion, she probably has stage IV lung cancer, they decided against pursuing histopathological diagnosis, considering her active deconditioning and hypoxia and underlying stage IV lung cancer she was not accepted at [facility]. Multiple family meetings were conducted after the diagnosis of stage IV lung cancer. Family decided to pursue comfort care on 06/05. Patient due to stage IV lung cancer with underlying COVID-19 infection. Additional Data Advance directives?: No Discharge Plan Discharge Patient Disposition: At Medical Facility Condition: Stable Prescriptions: No Action fenofibrate 54 mg tablet 54 mg PO DAILY 0RF cetirizine [All Day Allergy (cetirizine)] 10 mg tablet 10 mg PO BEDTIME 0RF albuterol sulfate 90 mcg/actuation HFA aerosol inhaler 2 puff inhalation Q4H PRN (Reason: Shortness Of Breath) 0RF Advair HFA 115-21 mcg/actuation HFA aerosol inhaler 1 puff inhalation Q12H 0RF omeprazole 20 mg capsule,delayed release(DR/EC) 20 mg PO QAM 0RF oxycodone 5 mg tablet 5 mg PO QID PRN (Reason: pain) 30 Days Qty: 120 0RF Rx Instructions: fill on or after 05/19/21 baclofen 20 mg tablet 20 mg PO TID PRN (Reason: spasms) Qty: 90 1RF diclofenac sodium 75 mg tablet,delayed release (DR/EC) 75 mg PO BID PRN (Reason: pain) Qty: 60 0RF nystatin 100,000 unit/mL suspension 1 ml PO QID 0RF Rx Instructions: swish and swallow for 14 days (filled 05/13/21) Aspir-81 81 mg Tablet,Delayed Release (Dr/Ec) 81 mg PO QAM 0RF magnesium oxide 400 mg (241.3 mg magnesium) tablet 400 mg PO DAILY 0RF Gentle Laxative (bisacodyl) 5 mg Tablet,Delayed Release (Dr/Ec) 5 mg PO BID 0RF levofloxacin 500 mg tablet 500 mg PO DAILY 0RF Rx Instructions: for 10 days (filled 05/13/21) Combivent Respimat 20-100 mcg/actuation mist 1 puff INHALATION BID 0RF amlodipine 2.5 mg tablet 2.5 mg PO QAM 0RF Opsumit 10 mg tablet 10 mg PO BEDTIME 0RF Patient Instructions: Opioid Safety Probable Cause of Probable cause of : Cardiac arrest DS Attestations Time Spent in /Discharge Care*: less than 30 min Quality - AMI: AMI present?: No Quality - Stroke: CVA present?: No Quality - VTE: VTE present?: No Coding Level of Care Code 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
--- NOTE | 2021-06-05 17:28 | PC.NURSE ---
body released to [facility] home
== END 2021-06-05 15:15 | disposition expired | DRG 177 ==
LOC: MEDSURG 05-23 07:19 → ICU 05-23 16:31
PROVIDERS: Internal Medicine; Admitting Provider Internal Medicine; PCP Nurse Practitioner; Visit Provider Internal Medicine
DX: U07.1 COVID-19 (principal); J96.22 Acute and chronic respiratory failure with hypercapnia; J96.21 Acute and chronic respiratory failure with hypoxia; J44.1 Chronic obstructive pulmonary disease with (acute) exacerbation; C34.91 Malignant neoplasm of unspecified part of right bronchus or lung; C78.7 Secondary malignant neoplasm of liver and intrahepatic bile duct; F05 Delirium due to known physiological condition; E46 Unspecified protein-calorie malnutrition; I27.20 Pulmonary hypertension, unspecified; Z99.81 Dependence on supplemental oxygen; M34.9 Systemic sclerosis, unspecified; Z96.651 Presence of right artificial knee joint; F17.210 Nicotine dependence, cigarettes, uncomplicated; I95.9 Hypotension, unspecified; M51.37 Other intervertebral disc degeneration, lumbosacral region; M16.0 Bilateral primary osteoarthritis of hip; E87.6 Hypokalemia; I71.4 Abdominal aortic aneurysm, without rupture; I46.9 Cardiac arrest, cause unspecified; Z51.5 Encounter for palliative care; Z66 Do not resuscitate; F32.A Depression, unspecified; L89.322 Pressure ulcer of left buttock, stage 2; B37.9 Candidiasis, unspecified; Z68.26 Body mass index [BMI] 26.0-26.9, adult; M79.89 Other specified soft tissue disorders; E86.0 Dehydration
CPT/HCPCS: 36415; 36416; 36569; 36600; 51702; 51798; 70450; 71045; 71275; 74176; 80048; 80051; 80053; 82330; 82533; 82803; 82805; 82962; 83735; 84145; 84484; 85025; 85049; 85378; 85384; 85610; 85730; 86140; 87070; 87205; 87493; 87641; 93005; 93970; 93971; 94640; 94660; 94664; 96372; 99214; A4570; C1751; C9113; J0696; J1100; J1650; J1940; J2270; J2405; J2543; J3486; J3490; J7030; J7608; J7626; J8540; Q9967